=== PATIENT | female | born 1960 | race Hispanic/Latino ===

== ENCOUNTER 2020-08-23 00:23 | Emergency (ER) | payer OTHER, SELFPAY ==
[2020-08-23 02:24] LABS: Absolute Lymphocytes (CBC) 2.7 K/uL (0.7-4.9); Basophils % 0.8 % (0-1.3); Hematocrit 45.1 % (36.0-45.0); Lymphocytes % 29.3 % (15.3-44.8); MPV 9.7 fL (7.6-11.3); RBC Red Blood Cell Count 5.05 M/uL (3.86-4.86)
[2020-08-23 02:27] LABS: Protime INR 0.95
[2020-08-23 02:37] LABS: BUN Blood Urea Nitrogen 18 mg/dL (7-18); Bicarbonate 29 mmol/L (21-32); Glucose Level 87 mg/dL (74-106); Potassium 3.3 mmol/L (3.5-5.1); Sodium Level 141 mmol/L (136-145); Troponin (Emerg Dept Use Only) < 0.02 ng/mL (0.0-0.045)
[2020-08-23 03:17] LABS: Urine Blood 2+ (Negative); Urine Glucose Negative (Negative); Urine Protein Trace (Negative); Urine Specific Gravity <=1.005 (1.005-1.030)
--- NOTE | 2020-08-23 05:09 | ER ---
Nurse's Notes [facility] Name: Susan Rodriguez Age: 59 yrs Sex: Female : 1960 Arrival Date: 08/23/2020 Time: 00:27 Bed 8 Private MD: Diagnosis: Superficial injury of head;Dehydration;Urinary tract infection, site not specified Presentation: 08/23 01:33 Chief complaint: Patient states: When I fell and woke up, I was just scared at the jb4 time, that's why I was slurring my words. I feel fine now. Friend and/or Co-Worker states: She fell out of bed and hit her head on the bedside desk. At first she was slurring her words and I got worried and brought her in. she sounds normal now. Coronavirus screen: Client denies travel out of the [place] in the last 14 days. At this time, the client does not indicate any symptoms associated with coronavirus-19. Ebola Screen: No symptoms or risks identified at this time. Initial Sepsis Screen: Does the patient meet any 2 criteria? No. Patient's initial sepsis screen is negative. Does the patient have a suspected source of infection? No. Patient's initial sepsis screen is negative. Risk Assessment: Do you want to hurt yourself or someone else? Patient reports no desire to harm self or others. Onset of symptoms was August 23, 2020. Transition of care: patient was not received from another setting of care. 01:33 Method Of Arrival: Ambulatory jb4 01:33 Acuity: MARIO 3 jb4 Historical: - Allergies: 01:38 PENICILLINS; jb4 - Home Meds: 01:38 Vimpat oral 300 mg oral [Active]; jb4 - PMHx: 01:38 Randomly passes out; jb4 - PSHx: 01:38 None; jb4 - Immunization history:: Adult Immunizations up to date. - Social history:: Smoking status: Patient denies any tobacco usage or history of. Patient/guardian denies using alcohol, street drugs. - Family history:: not pertinent. - Hospitalizations: : No recent hospitalization is reported. Screenin:38 Abuse screen: Denies threats or abuse. Nutritional screening: No deficits noted. jb4 Tuberculosis screening: No symptoms or risk factors identified. Fall risk None identified. 01:38 Fall Risk None identified. jb4 Primary Survey: 01:38 NO uncontrolled hemorrhage observed. A: The patient is alert. Airway: patent, No jb4 supplemental oxygen in use on arrival. Oral cavity: clear, gag reflex present. Breathing/Chest: Respiratory pattern: regular, Respiratory effort: spontaneous, unlabored, Chest inspection: symmetrical rise and fall of the chest. Circulation: Skin color: pink, Skin temperature: warm, dry. Disability Alert. Exposure/Environment: All clothing and personal items were removed. Forensic evidence collection is not deemed to be indicated at this time. Items placed in patient belonging bag. 02:30 Reassessment Airway Airway Patent Oral cavity Clear +Gag reflex Breathing/Chest jb4 Respiratory pattern Regular Respiratory effort Spontaneous Unlabored Chest inspection Symmetrical Asymmetrical Circulation Color [place] Temperature Warm Dry Disability Alert. Secondary Survey: 01:38 HEENT: Head Other Laceration noted above the left eye Face No injury/deformity Eyes: No jb4 injury or deformity noted. Ears: clear Nose: clear Throat: No injury or deformity noted. with gag reflex present. Gastrointestinal: No deficits noted. : No deficits noted. Musculoskeletal: No deficits noted. Injury Description: Laceration sustained to left eye is clean, superficial, 2.6 to 7.5 cm long, not bleeding, was sustained 1-2 hours ago. Assessment: 01:38 General: Appears in no apparent distress. uncomfortable, Behavior is calm, cooperative, jb4 appropriate for age. Pain: Complains of pain in left arm Pain does not radiate. Pain currently is 6 out of 10 on a pain scale. Quality of pain is described as throbbing. Neuro: Level of Consciousness is awake, alert, obeys commands, Oriented to person, place, time, situation, Fur Storage Clerk are equal bilaterally weak bilaterally Moves all extremities. Full function Gait is steady, Speech is normal, Facial symmetry appears normal, Pupils are PERRLA, Intact. Cardiovascular: Patient's skin is warm and dry. Respiratory: Airway is patent Respiratory effort is even, unlabored, Respiratory pattern is regular, symmetrical. GI: No signs and/or symptoms were reported involving the gastrointestinal system. : No signs and/or symptoms were reported regarding the genitourinary system. EENT: No signs and/or symptoms were reported regarding the EENT system. Derm: Skin is intact, Skin is pink, warm \T\ dry. Musculoskeletal: Circulation, motion, and sensation intact. Range of motion: intact in all extremities. Injury Description: Laceration sustained to left eye is clean, superficial, 2.6 to 7.5 cm long, not bleeding, was sustained 1-2 hours ago. 02:30 Reassessment: Patient appears in no apparent distress at this time. Patient and/or jb4 family updated on plan of care and expected duration. Pain level reassessed. Patient is alert, oriented x 3, equal unlabored respirations, skin warm/dry/pink. 03:30 Reassessment: Patient appears in no apparent distress at this time. Patient and/or jb4 family updated on plan of care and expected duration. Pain level reassessed. Patient is alert, oriented x 3, equal unlabored respirations, skin warm/dry/pink. 04:30 Reassessment: Patient appears in no apparent distress at this time. Patient and/or jb4 family updated on plan of care and expected duration. Pain level reassessed. Patient is alert, oriented x 3, equal unlabored respirations, skin warm/dry/pink. 05:20 Reassessment: Patient appears in no apparent distress at this time. Patient and/or jb4 family updated on plan of care and expected duration. Pain level reassessed. Patient is alert, oriented x 3, equal unlabored respirations, skin warm/dry/pink. Vital Signs: 01:33 BP 143 / 73; Pulse 61; Resp 16; Temp 96.7(TE); Pulse Ox 97% on R/A; Weight 90.72 kg jb4 (R); Height 5 ft. 1 in. (154.94 cm) (R); Pain 6/10; 02:30 BP 151 / 76; Pulse 62; Resp 18; Pulse Ox 96% on R/A; jb4 04:30 BP 132 / 59; Pulse 67; Resp 18; Pulse Ox 97% on R/A; jb4 05:23 BP 145 / 80; Pulse 65; Resp 18; Temp 98; Pulse Ox 97% on R/A; mg2 01:33 Body Mass Index 37.79 (90.72 kg, 154.94 cm) jb4 [place] Coma Score: 01:39 Eye Response: spontaneous(4). Verbal Response: oriented(5). Motor Response: obeys jb4 commands(6). Total: 15. 02:30 Eye Response: spontaneous(4). Verbal Response: oriented(5). Motor Response: obeys jb4 commands(6). Total: 15. 04:30 Eye Response: spontaneous(4). Verbal Response: oriented(5). Motor Response: obeys jb4 commands(6). Total: 15. Trauma Score (Adult): 01:39 Eye Response: spontaneous(1); Verbal Response: oriented(1); Motor Response: obeys jb4 commands(2); Systolic BP: > 89 mm Hg(4); Respiratory Rate: 10 to 29 per min(4); [place] Score: 15; Trauma Score: 12 02:30 Eye Response: spontaneous(1); Verbal Response: oriented(1); Motor Response: obeys jb4 commands(2); Systolic BP: > 89 mm Hg(4); Respiratory Rate: 10 to 29 per min(4); [place] Score: 15; Trauma Score: 12 04:30 Eye Response: spontaneous(1); Verbal Response: oriented(1); Motor Response: obeys jb4 commands(2); Systolic BP: > 89 mm Hg(4); Respiratory Rate: 10 to 29 per min(4); Tricia Score: 15; Trauma Score: 12 05:24 Eye Response: spontaneous(1); Verbal Response: oriented(1); Motor Response: obeys mg2 commands(2); Systolic BP: > 89 mm Hg(4); Respiratory Rate: 10 to 29 per min(4); [place] Score: 15; Trauma Score: 12 ED Course: 00:27 Patient arrived in ED. bp1 01:32 Ernie Hughes, RN is Primary Nurse. jb4 01:37 Triage completed. jb4 01:38 Arm band placed on right wrist. jb4 01:38 Patient has correct armband on for positive identification. Bed in low position. Call jb4 light in reach. Side rails up X 1. 01:38 Patient maintains SpO2 saturation greater than 95% on room air. Thermoregulation: warm jb4 blanket given to patient. 01:40 Lucas Samayoa MD is Attending Physician. rn 02:29 CT Head C Spine In Process Unspecified. EDMS 05:23 No provider procedures requiring assistance completed. IV discontinued, intact, mg2 bleeding controlled, No redness/swelling at site. Pressure dressing applied. Administered Medications: 05:11 Drug: Cipro (ciprofloxacin) 500 mg Route: PO; mg2 05:11 Follow up: Response: No adverse reaction; Medication administered at discharge. mg2 Outcome: 05:07 Discharge ordered by . rn 05:24 Discharged to home ambulatory, with family. mg2 05:24 Condition: stable 05:24 Discharge instructions given to patient, Instructed on discharge instructions, follow up and referral plans. medication usage, Demonstrated understanding of instructions, follow-up care, medications, Prescriptions given X 1. 05:24 Patient left the ED. mg2 Signatures: Dispatcher [employer] EDMS Lucas Samayoa MD MD rn Bryson, James, RN RN jb4 Sp Cruz RN RN mg2 Ruth Hitchcock
--- NOTE | 2020-08-23 05:09 | EDPHYS ---
Physician Documentation [facility] Name: Susan Rodriguez Age: 59 yrs Sex: Female : 1960 Arrival Date: 08/23/2020 Time: 00:27 Bed 8 Private MD: ED Physician Lucas Samayoa HPI: 08/23 03:39 This 59 yrs old Female presents to ER via Ambulatory with complaints of Fall rn Injury. 03:39 Details of fall: The patient fell from a supine position, out of bed. Onset: The rn symptoms/episode began/occurred just prior to arrival. Associated injuries: The patient sustained injury to the head. Severity of symptoms: At their worst the symptoms were mild, in the emergency department the symptoms are unchanged. The patient has experienced similar episodes in the past. Reports fall from bed, hit head on bedside desk, no LOC, no blood thinners, reports felt dazed and initially had slurred speech, but only lasted a couple of minutes. Denies recent illness/fever/cough/sob/chest pain/abd pain/vomiting/diarrhea. Now feels much better, reports generalized malaise and fatigue.. Historical: - Allergies: 01:38 PENICILLINS; jb4 - Home Meds: 01:38 Vimpat oral 300 mg oral [Active]; jb4 - PMHx: 01:38 Randomly passes out; jb4 - PSHx: 01:38 None; jb4 - Immunization history:: Adult Immunizations up to date. - Social history:: Smoking status: Patient denies any tobacco usage or history of. Patient/guardian denies using alcohol, street drugs. - Family history:: not pertinent. - Hospitalizations: : No recent hospitalization is reported. ROS: 03:39 Constitutional: Negative for fever, chills, and weight loss, Eyes: Negative for injury, rn pain, redness, and discharge, Neck: Negative for injury, pain, and swelling, Cardiovascular: Negative for chest pain, palpitations, and edema, Respiratory: Negative for shortness of breath, cough, wheezing, and pleuritic chest pain, Abdomen/GI: Negative for abdominal pain, nausea, vomiting, diarrhea, and constipation, Back: Negative for injury and pain, MS/Extremity: Negative for injury and deformity, Skin: + contusion/abrasion left forehead Neuro: + mild headache Exam: 03:41 Constitutional: This is a well developed, well nourished patient who is awake, alert, rn and in no acute distress. Head/Face: + contusion with linear abrasion left forehead near left eye, no depression, no laceration Eyes: Pupils equal round and reactive to light, extra-ocular motions intact. Lids and lashes normal. Conjunctiva and sclera are non-icteric and not injected. Cornea within normal limits. Periorbital areas with no swelling, redness, or edema. Neck: No midline tenderness Chest/axilla: Normal chest wall appearance and motion. Nontender with no deformity. No lesions are appreciated. Cardiovascular: Regular rate and rhythm. No pulse deficits. Respiratory: No increased work of breathing, no retractions or nasal flaring. Abdomen/GI: soft, non-tender Back: No spinal tenderness. No costovertebral tenderness. Full range of motion. Skin: Warm, dry with normal turgor. Normal color with no rashes, no lesions, and no evidence of cellulitis. MS/ Extremity: Pulses equal, no cyanosis. Neurovascular intact. Full, normal range of motion. Equal circumference. Neuro: Awake and alert, GCS 15, oriented to person, place, time, and situation. Cranial nerves II-XII grossly intact. Motor strength 5/5 in all extremities. Sensory grossly intact. Cerebellar exam normal. Normal gait. Vital Signs: 01:33 BP 143 / 73; Pulse 61; Resp 16; Temp 96.7(TE); Pulse Ox 97% on R/A; Weight 90.72 kg jb4 (R); Height 5 ft. 1 in. (154.94 cm) (R); Pain 6/10; 02:30 BP 151 / 76; Pulse 62; Resp 18; Pulse Ox 96% on R/A; jb4 04:30 BP 132 / 59; Pulse 67; Resp 18; Pulse Ox 97% on R/A; jb4 05:23 BP 145 / 80; Pulse 65; Resp 18; Temp 98; Pulse Ox 97% on R/A; mg2 01:33 Body Mass Index 37.79 (90.72 kg, 154.94 cm) jb4 Tricia Coma Score: 01:39 Eye Response: spontaneous(4). Verbal Response: oriented(5). Motor Response: obeys jb4 commands(6). Total: 15. 02:30 Eye Response: spontaneous(4). Verbal Response: oriented(5). Motor Response: obeys jb4 commands(6). Total: 15. 04:30 Eye Response: spontaneous(4). Verbal Response: oriented(5). Motor Response: obeys jb4 commands(6). Total: 15. Trauma Score (Adult): 01:39 Eye Response: spontaneous(1); Verbal Response: oriented(1); Motor Response: obeys jb4 commands(2); Systolic BP: > 89 mm Hg(4); Respiratory Rate: 10 to 29 per min(4); [place] Score: 15; Trauma Score: 12 02:30 Eye Response: spontaneous(1); Verbal Response: oriented(1); Motor Response: obeys jb4 commands(2); Systolic BP: > 89 mm Hg(4); Respiratory Rate: 10 to 29 per min(4); Tricia Score: 15; Trauma Score: 12 04:30 Eye Response: spontaneous(1); Verbal Response: oriented(1); Motor Response: obeys jb4 commands(2); Systolic BP: > 89 mm Hg(4); Respiratory Rate: 10 to 29 per min(4); Tricia Score: 15; Trauma Score: 12 05:24 Eye Response: spontaneous(1); Verbal Response: oriented(1); Motor Response: obeys mg2 commands(2); Systolic BP: > 89 mm Hg(4); Respiratory Rate: 10 to 29 per min(4); Tricia Score: 15; Trauma Score: 12 MDM: 01:40 Patient medically screened. rn 05:05 Differential diagnosis: closed head injury, contusion, fracture, sprain, strain. Data rn reviewed: vital signs, nurses notes, lab test result(s), EKG, radiologic studies, CT scan, and as a result, I will discharge patient. Counseling: I had a detailed discussion with the patient and/or guardian regarding: the historical points, exam findings, and any diagnostic results supporting the discharge/admit diagnosis, lab results, radiology results, the need for outpatient follow up, to return to the emergency department if symptoms worsen or persist or if there are any questions or concerns that arise at home. Response to treatment: the patient's symptoms have markedly improved after treatment, the patient's condition has returned to base line, and as a result, I will discharge patient. Special discussion: Based on the patient's history, exam and DX evaluation, there is no indication for emergent intervention or inpatient TX. It is understood by the patient/guardian that if the SXs persist or worsen they need to return immediately for re-evaluation. I discussed with the patient/guardian in detail that at this point there is no indication for admission to the hospital. It is understood, however, that if the symptoms persist or worsen the patient needs to return immediately for re-evaluation. ED course: No acute findings on ct head/cspine. + mild dehydration and UTI. Will dc home with cipro given patient reports increased urination. Return precautions given and understood. Feels much better. . 08/23 01:46 Order name: Basic Metabolic Panel rn 08/23 01:46 Order name: CBC with Diff rn 08/23 01:46 Order name: Magnesium rn 08/23 01:46 Order name: Protime (+inr) rn 08/23 01:46 Order name: Ptt, Activated; Complete Time: 03:42 rn 08/23 01:46 Order name: Troponin (emerg Dept Use Only); Complete Time: 03:42 rn 08/23 01:45 Order name: CT Head C Spine rn 08/23 01:46 Order name: Basic Metabolic Panel; Complete Time: 03:42 EDUT 08/23 01:47 Order name: CBC with Automated Diff; Complete Time: 03:42 EDUT 08/23 01:47 Order name: Magnesium; Complete Time: 03:42 EDMS 08/23 01:47 Order name: Protime (+INR); Complete Time: 03:42 EDMS 08/23 03:16 Order name: Urine Dipstick-Ancillary; Complete Time: 03:42 EDMS 08/23 01:46 Order name: EKG; Complete Time: 01:47 rn 08/23 01:46 Order name: Cardiac monitoring; Complete Time: 02:18 rn 08/23 01:46 Order name: EKG - Nurse/Tech; Complete Time: 02:17 rn 08/23 01:46 Order name: IV Saline Lock; Complete Time: 02:17 rn 08/23 01:46 Order name: Labs collected and sent; Complete Time: 02:17 rn 08/23 01:46 Order name: NPO; Complete Time: 01:48 rn 08/23 01:46 Order name: O2 Per Protocol; Complete Time: 02:17 rn 08/23 01:46 Order name: O2 Sat Monitoring; Complete Time: 02:17 rn 08/23 01:46 Order name: Urine Dipstick-Ancillary (obtain specimen); Complete Time: 03:17 rn Administered Medications: 05:11 Drug: Cipro (ciprofloxacin) 500 mg Route: PO; mg2 05:11 Follow up: Response: No adverse reaction; Medication administered at discharge. mg2 Disposition: 08/23/20 05:07 Discharged to Home. Impression: Superficial injury of head, Dehydration, Urinary tract infection, site not specified. - Condition is Stable. - Discharge Instructions: Dehydration, Adult, Head Injury, Adult, Urinary Tract Infection, Adult. - Prescriptions for Cipro 500 mg Oral Tablet - take 1 tablet by ORAL route every 12 hours for 7 days; 14 tablet. - Medication Reconciliation Form, Thank You Letter, Antibiotic Education, Prescription Opioid Use form. - Follow up: Private Physician; When: As needed; Reason: Recheck today's complaints, Re-evaluation by your physician. - Problem is new. - Symptoms have improved. Signatures: Dispatcher [employer] EDUT Lucas Samayoa MD MD rn Bryson, James RN RN jb4 Sp Cruz RN RN mg2 Corrections: (The following items were deleted from the chart) 01:58 01:41 Head Brain Wo Cont+CT.RAD.BRZ ordered. [facility] EDMS 03:41 03:39 Constitutional: Negative for fever, chills, and weight loss, rn rn 05:24 05:07 08/23/2020 05:07 Discharged to Home. Impression: Superficial injury of head; mg2 Dehydration; Urinary tract infection, site not specified. Condition is Stable. Forms are Medication Reconciliation Form, Thank You Letter, Antibiotic Education, Prescription Opioid Use. Follow up: Private Physician; When: As needed; Reason: Recheck today's complaints, Re-evaluation by your physician. Problem is new. Symptoms have improved. rn
[2020-08-23] MEDS ORDERED: CIPROFLOXACIN HCL 500 MG TAB ONE (05:26)
[2020-08-23 05:36] VITALS: BP 145/80; TEMP 98; O2SAT 97
--- NOTE | 2020-08-23 10:32 | RAD REPORT ---
EXAM DESCRIPTION: CT - [id number] - 08/23/2020 6:21 am CLINICAL HISTORY: The patient is 59 years old and is Female; head injury;Pain TECHNIQUE: Axial computed tomography images of the head/brain and cervical spine without intravenous contrast. Sagittal and coronal reformatted images were created and reviewed. This CT exam was pe rformed using one or more of the following dose reduction techniques: automated exposure control, a djustment of the mA and/or kV according to patient size, and/or use of iterative reconstruction techn ique. COMPARISON: No relevant prior studies available. FINDINGS: Brain: Coarse calcification in the right basal ganglia. No hemorrhage. No significant white matter disease. Ventricles: Unremarkable. No ventriculomegaly. Skull: No acute fracture. Sinuses: The maxillary sinuses are opacified. Mastoid air cells: Unremarkable as visualized. No mastoid effusion. Vertebrae: 4 x 7 mm non-specific sclerotic focus in the posterior C4 vertebral body. No acute fracture. Normal alignment. Discs/spinal canal/neural foramina: No acute findings. No spinal canal stenosis. Soft tissues: Unremarkable. IMPRESSION: No acute intracranial abnormality. No acute cervical spine fracture or subluxation. Electronically signed by: Tyson Buckley MD 08/23/2020 2:46 AM CDT Due to temporary technical issues with the PACS/Fluency reporting system, reports are being signed by the in house radiologist without review as a courtesy to ensure prompt reporting. The interpreting r adiologist is fully responsible for the content of the report.
--- NOTE | 2020-08-23 11:17 | EKG ---
Test Date: 2020-08-23 Test Time: 01:59:09 Clinical Lab Assistant: WANDA MEASUREMENT RESULTS: Intervals: Rate: 65 UT: 156 QRSD: 86 QT: 426 QTc: 443 [place]: P: 60 UT: 156 QRS: 4 T: 47 INTERPRETIVE STATEMENTS: Normal sinus rhythm Normal ECG No previous ECG available for comparison Electronically Signed On 08-23-20 11:16:44 CDT by Tanmay Roberto
== END 2020-08-23 05:24 | disposition home or self-care (01) ==
LOC: ER 00:23
DX: E86.0 Dehydration (principal); N39.0 Urinary tract infection, site not specified; W06.XXXA Fall from bed, initial encounter; Z88.0 Allergy status to penicillin
CPT/HCPCS: 36415; 70450; 72125; 80048; 81003; 83735; 84484; 85025; 85610; 85730; 93005; 99284

== ENCOUNTER 2020-10-28 22:57 | Emergency (ER) | payer OTHER ==
[2020-10-28 23:34] LABS: Protime INR 0.93
[2020-10-28 23:34] LABS: Urine Blood 2+ (Negative); Urine Glucose Negative (Negative); Urine Protein 1+ (Negative); Urine Specific Gravity 1.015 (1.005-1.030)
[2020-10-28 23:41] LABS: Absolute Lymphocytes (CBC) 3.6 K/uL (0.7-4.9); Basophils % 0.7 % (0-1.3); Hematocrit 42.8 % (36.0-45.0); Lymphocytes % 40.3 % (15.3-44.8); MPV 9.4 fL (7.6-11.3); RBC Red Blood Cell Count 4.84 M/uL (3.86-4.86)
[2020-10-28 23:51] LABS: ALT/SGPT 32 U/L (12-78); AST/SGOT 20 U/L (15-37); Albumin 3.7 g/dL (3.4-5.0); Alkaline Phosphatase 162 U/L (45-117); BUN Blood Urea Nitrogen 15 mg/dL (7-18); Bicarbonate 27 mmol/L (21-32); Bilirubin Direct 0.1 mg/dL (0-0.2); Bilirubin Total 0.5 mg/dL (0.2-1.0); Glucose Level 102 mg/dL (74-106); Magnesium 1.8 mg/dL (1.8-2.4); NT PRO-BNP 57 pg/mL (<125); Potassium 3.8 mmol/L (3.5-5.1); Protein, Total 7.4 g/dL (6.4-8.2); Sodium Level 138 mmol/L (136-145); Troponin (Emerg Dept Use Only) < 0.02 ng/mL (0.0-0.045)
[2020-10-29] MEDS ORDERED: LIDOCAINE 1% 20 ML MDV ONE (00:38)
--- NOTE | 2020-10-29 05:42 | EDPHYS ---
Physician Documentation [facility] Name: Susan Rodriguez Age: 59 yrs Sex: Female : 1960 Arrival Date: 10/28/2020 Time: 23:06 Bed 6 Private MD: ED Physician Crispin Morales HPI: 10/29 00:13 This 59 yrs old Female presents to ER via EMS with complaints of Fall Injury. mh7 00:13 Details of fall: The patient fell from an upright position, while walking. Onset: The mh7 symptoms/episode began/occurred just prior to arrival, today. Associated injuries: The patient sustained injury to the head, contusion, laceration, of the forehead. 00:14 Associated injuries: The patient sustained right shoulder, painful injury. Severity of mh7 symptoms: At their worst the symptoms were moderate, earlier today, in the emergency department the symptoms have improved, moderately. 00:14 The patient has experienced similar episodes in the past, multiple times. mh7 Historical: - Allergies: 10/28 23:37 PENICILLINS; rr5 - Home Meds: 23:37 Vimpat 300 mg Oral [Active]; fluoxetine Oral [Active]; cetirizine oral [Active]; rr5 levothyroxine oral [Active]; Aspirin Oral [Active]; metoprolol [Active]; budesonide oral [Active]; - PMHx: 23:37 Randomly passes out; hyperlipidemia; Hypothyroidism; Anxiety; Hypertensive disorder; rr5 Seizure; - Immunization history:: Adult Immunizations unknown. - Social history:: Smoking status: unknown. - Immunization history: Last tetanus immunization: unknown. ROS: 10/29 00:14 Constitutional: Negative for fever, chills, and weight loss, Eyes: Negative for injury, mh7 pain, redness, and discharge, ENT: Negative for injury, pain, and discharge, Neck: Negative for injury, pain, and swelling, Cardiovascular: Negative for chest pain, palpitations, and edema, Respiratory: Negative for shortness of breath, cough, wheezing, and pleuritic chest pain, Abdomen/GI: Negative for abdominal pain, nausea, vomiting, diarrhea, and constipation, Back: Negative for injury and pain, : Negative for injury, bleeding, discharge, and swelling. Psych: Negative for depression, anxiety, suicide ideation, homicidal ideation, and hallucinations, Allergy/Immunology: Negative for hives, rash, and allergies, Endocrine: Negative for neck swelling, polydipsia, polyuria, polyphagia, and marked weight changes, Hematologic/Lymphatic: Negative for swollen nodes, abnormal bleeding, and unusual bruising. 00:14 Neuro: Positive for dizziness. mh7 Exam: 00:14 Constitutional: This is a well developed, well nourished patient who is awake, alert, mh7 and in no acute distress. 00:14 Eyes: Pupils equal round and reactive to light, extra-ocular motions intact. Lids and lashes normal. Conjunctiva and sclera are non-icteric and not injected. Cornea within normal limits. Periorbital areas with no swelling, redness, or edema. ENT: Nares patent. No nasal discharge, no septal abnormalities noted. Tympanic membranes are normal and external auditory canals are clear. Oropharynx with no redness, swelling, or masses, exudates, or evidence of obstruction, uvula midline. Mucous membranes moist. Neck: Trachea midline, no thyromegaly or masses palpated, and no cervical lymphadenopathy. Supple, full range of motion without nuchal rigidity, or vertebral point tenderness. No Meningismus. Chest/axilla: Normal chest wall appearance and motion. Nontender with no deformity. No lesions are appreciated. Cardiovascular: Regular rate and rhythm with a normal S1 and S2. No gallops, murmurs, or rubs. Normal PMI, no JVD. No pulse deficits. Respiratory: Lungs have equal breath sounds bilaterally, clear to auscultation and percussion. No rales, rhonchi or wheezes noted. No increased work of breathing, no retractions or nasal flaring. Abdomen/GI: Soft, non-tender, with normal bowel sounds. No distension or tympany. No guarding or rebound. No evidence of tenderness throughout. Back: No spinal tenderness. No costovertebral tenderness. Full range of motion. Neuro: Awake and alert, GCS 15, oriented to person, place, time, and situation. Cranial nerves II-XII grossly intact. Motor strength 5/5 in all extremities. Sensory grossly intact. Cerebellar exam normal. Normal gait. Psych: Awake, alert, with orientation to person, place and time. Behavior, mood, and affect are within normal limits. 00:14 Head/face: Noted is a laceration(s), that is superficial, that is jagged, 4 cm(s), of mh7 the forehead, of the 2 cm forhead, jagged, irregular. 00:14 Musculoskeletal/extremity: Extremities: noted in the right shoulder: tenderness, ROM: mh7 limited active range of motion due to pain, in the right shoulder, limited passive range of motion due to pain, in the right shoulder, Circulation is intact in all extremities. Sensation intact. Compartment Syndrome exam of affected extremity: is normal. no numbness, no tingling, no sensation deficit, no palor, no weak pulses, Joints: the right shoulder displays painful range of motion, tenderness. 00:14 Skin: injury, laceration(s), the wound is approximately 4 cm(s), with a depth of 0.5 cm(s), of the forehead, the second wound is approximately 2 cm(s), with a depth of 0.75 cm(s), of the forehead, that can be described as no foreign body, irregular, jagged, with mild bleeding. Vital Signs: 10/28 23:06 BP 186 / 88; Pulse 65; Resp 19; Temp 98; Pulse Ox 98% ; rr5 23:10 Weight 90.72 kg; rr5 07 00:30 BP 146 / 84; Pulse 69; Resp 15; Pulse Ox 97% ; rr5 01:26 BP 158 / 84; Pulse 62; Resp 18; Pulse Ox 98% on R/A; ak2 03:07 BP 149 / 78; Pulse 60; Resp 20; Pulse Ox 98% on R/A; ak2 03:40 BP 141 / 70; Pulse 62; Resp 19; Pulse Ox 99% ; rr5 04:30 BP 136 / 89; Pulse 60; Resp 17; Pulse Ox 99% ; rr5 05:30 BP 135 / 80; Pulse 60; Resp 17; Pulse Ox 99% ; rr5 Tricia Coma Score: 10/28 23:10 Eye Response: spontaneous(4). Verbal Response: oriented(5). Motor Response: obeys rr5 commands(6). Total: 15. 10/29 00:30 Eye Response: spontaneous(4). Verbal Response: oriented(5). Motor Response: obeys rr5 commands(6). Total: 15. 01:26 Eye Response: spontaneous(4). Verbal Response: oriented(5). Motor Response: obeys rr5 commands(6). Total: 15. 03:07 Eye Response: spontaneous(4). Verbal Response: oriented(5). Motor Response: obeys rr5 commands(6). Total: 15. 03:40 Eye Response: spontaneous(4). Verbal Response: oriented(5). Motor Response: obeys rr5 commands(6). Total: 15. 04:30 Eye Response: spontaneous(4). Verbal Response: oriented(5). Motor Response: obeys rr5 commands(6). Total: 15. 05:30 Eye Response: spontaneous(4). Verbal Response: oriented(5). Motor Response: obeys rr5 commands(6). Total: 15. Trauma Score (Adult): 10/28 23:10 Eye Response: spontaneous(1); Verbal Response: oriented(1); Motor Response: obeys rr5 commands(2); Systolic BP: > 89 mm Hg(4); Respiratory Rate: 10 to 29 per min(4); Tricia Score: 15; Trauma Score: 12 07 00:30 Eye Response: spontaneous(1); Verbal Response: oriented(1); Motor Response: obeys rr5 commands(2); Systolic BP: > 89 mm Hg(4); Respiratory Rate: 10 to 29 per min(4); Tricia Score: 15; Trauma Score: 12 01:26 Eye Response: spontaneous(1); Verbal Response: oriented(1); Motor Response: obeys rr5 commands(2); Systolic BP: > 89 mm Hg(4); Respiratory Rate: 10 to 29 per min(4); [place] Score: 15; Trauma Score: 12 03:07 Eye Response: spontaneous(1); Verbal Response: oriented(1); Motor Response: obeys rr5 commands(2); Systolic BP: > 89 mm Hg(4); Respiratory Rate: 10 to 29 per min(4); [place] Score: 15; Trauma Score: 12 03:40 Eye Response: spontaneous(1); Verbal Response: oriented(1); Motor Response: obeys rr5 commands(2); Systolic BP: > 89 mm Hg(4); Respiratory Rate: 10 to 29 per min(4); Tricia Score: 15; Trauma Score: 12 04:30 Eye Response: spontaneous(1); Verbal Response: oriented(1); Motor Response: obeys rr5 commands(2); Systolic BP: > 89 mm Hg(4); Respiratory Rate: 10 to 29 per min(4); Tricia Score: 15; Trauma Score: 12 05:30 Eye Response: spontaneous(1); Verbal Response: oriented(1); Motor Response: obeys rr5 commands(2); Systolic BP: > 89 mm Hg(4); Respiratory Rate: 10 to 29 per min(4); [place] Score: 15; Trauma Score: 12 Laceration: 05:00 Wound Repair of 4cm ( 1.6in ) subcutaneous laceration to forehead. Linear shaped.. mh7 Minimal bleeding noted.. jagged. Distal neuro/vascular/tendon intact. Anesthesia: Local anesthetic administered with 6 mls of 1% lidocaine, Local anesthetic administered with 3 mls of 1% lidocaine. Wound prep: Extensive cleansing with hibiclenz by nurse, Wound irrigation with saline by nurse, Wound explored extensively, Copious irrigation. 05:00 Wound Repair of 2cm ( 0.8in ) subcutaneous laceration to forehead. Irregularly shaped.. mh7 Distal neuro/vascular/tendon intact. Anesthesia: Local anesthetic administered with 3 mls of 1% lidocaine. Wound prep: Extensive cleansing with hibiclenz by nurse, Wound irrigation by nurse, Wound explored extensively, Copious irrigation. Skin closed with 8 5-0 Prolene using simple sutures and sterile technique. Subcutaneous tissue closed with 1 5-0 Vicryl. Skin closed with 5 5-0 Prolene using simple sutures and sterile technique. Dressed with Bacitracin, non-adherent dressing. Patient tolerated well. MDM: 00:14 Differential diagnosis: abrasion, closed head injury, contusion, fracture, laceration. mh7 05:00 Data reviewed: vital signs, nurses notes, EMS record, lab test result(s), cardiac mh7 enzymes, CBC, electrolytes, EKG, radiologic studies, CT scan, plain films. Data interpreted: Pulse oximetry: on room air is 99 %. Interpretation: normal. Counseling: I had a detailed discussion with the patient and/or guardian regarding: the historical points, exam findings, and any diagnostic results supporting the discharge/admit diagnosis, lab results, radiology results, to return to the emergency department if symptoms worsen or persist or if there are any questions or concerns that arise at home. Response to treatment: the patient's symptoms have markedly improved after treatment. Refusal of service: The patient/guardian displays adequate decision making capability and despite a detailed discussion of alternatives, benefits, risks, and consequences refuses: Admission to the hospital for further work-up and treatment. 05:41 Patient medically screened. [facility] 10/28 23:07 Order name: Basic Metabolic Panel; Complete Time: 00:22 [facility] 10/28 23:07 Order name: CBC with Diff; Complete Time: 00:22 [facility] 10/28 23:07 Order name: LFT's; Complete Time: 00:22 [facility] 10/28 23:07 Order name: Magnesium; Complete Time: 00:22 [facility] 10/28 23:07 Order name: NT PRO-BNP; Complete Time: 00:22 [facility] 10/28 23:07 Order name: PT-INR; Complete Time: 00:22 [facility] 10/28 23:07 Order name: Troponin (emerg Dept Use Only); Complete Time: 00:22 [facility] 10/28 23:07 Order name: XRAY Chest (1 view) [facility] 10/28 23:07 Order name: EKG; Complete Time: 23:07 [facility] 10/28 23:08 Order name: CT Head C Spine [facility] 10/28 23:33 Order name: Urine Dipstick-Ancillary; Complete Time: 00:22 [facility] 10/29 00:52 Order name: Shoulder Right 2 View [facility] 10/28 23:07 Order name: Cardiac monitoring; Complete Time: 23:37 [facility] 10/28 23:07 Order name: EKG - Nurse/Tech; Complete Time: 23:37 [facility] 10/28 23:07 Order name: IV Saline Lock; Complete Time: 23:37 [facility] 10/28 23:07 Order name: Labs collected and sent; Complete Time: 23:37 [facility] 10/28 23:07 Order name: O2 Per Protocol; Complete Time: 23:37 [facility] 10/28 23:07 Order name: O2 Sat Monitoring; Complete Time: 23:37 [facility] 10/28 23:07 Order name: Urine Dipstick-Ancillary (obtain specimen); Complete Time: 23:37 [facility] 10/29 00:15 Order name: Dressing - Wound; Complete Time: 05:21 rr5 10/29 00:15 Order name: Gloves, Sterile; Complete Time: 05:21 rr5 10/29 00:15 Order name: Prolene, Sutures; Complete Time: 05:21 rr5 10/29 00:15 Order name: Setup Suture Tray; Complete Time: 05:21 rr5 Administered Medications: 00:18 Drug: Lidocaine (1 %) 10 ml Volume: 20 ml; Route: Infiltration; ak2 05:33 Follow up: Response: No adverse reaction rr5 Disposition Summary: 10/29/20 05:41 Discharge Ordered Location: Home 7 Problem: an acute exacerbation 7 Symptoms: have improved mh7 Condition: Stable mh7 Diagnosis - Fall on same level, unspecified 7 - Seizure Disorder 7 Followup: [facility] - With: Private Physician - When: 1 - 2 days - Reason: Worsening of condition, Recheck today's complaints, Continuance of care, Re-evaluation by your physician Followup: [facility] - With: Rocco Pendleton MD - When: 1 - 2 days - Reason: Worsening of condition, Recheck today's complaints Discharge Instructions: - Discharge Summary Sheet 7 - Seizure, Adult, Obov-ia-[id number] mh7 - Facial Laceration, [id number] 7 - Sutured Wound Care, [id number]-[id number] 7 - Fall Prevention in the Home, Adult, [id number] 7 Forms: - Medication Reconciliation Form 7 - Thank You Letter 7 - Antibiotic Education 7 - Prescription Opioid Use 7 Signatures: Dispatcher [employer] Delano Norton RN RN rr5 Crispin Morales MD MD 7 Hermann Potter ak2 Corrections: (The following items were deleted from the chart) 00:52 09 23:08 Shoulder Left 2 View+RAD.RAD.BRZ ordered. LINDSAYID LINDSAYID 10/29 05:33 00:14 Neuro: Positive for dizziness, syncope, mh7 7
--- NOTE | 2020-10-29 05:42 | ER ---
Nurse's Notes [facility] Name: Susan Rodriguez Age: 59 yrs Sex: Female : 1960 Arrival Date: 10/28/2020 Time: 23:06 Bed 6 Private MD: Diagnosis: Fall on same level, unspecified;Seizure Disorder Presentation: 10/28 23:06 Chief complaint: EMS states: family stated she was in the couch stand up going to [facility] restroom suddenly felt dizzy then fell hit her head sustained punctured wound on her right eye and right forehead. she also complained of left shoulder pain and tongue bite noted.history of seizure. BS 115 mg/dl. Coronavirus screen: Client denies travel out of the [place] in the last 14 days. Ebola Screen: Patient negative for fever greater than or equal to 101.5 degrees Fahrenheit, and additional compatible Ebola Virus Disease symptoms Patient denies exposure to infectious person. Patient denies travel to an Ebola-affected area in the 21 days before illness onset. Initial Sepsis Screen: Does the patient meet any 2 criteria? No. Patient's initial sepsis screen is negative. Does the patient have a suspected source of infection? No. Patient's initial sepsis screen is negative. Risk Assessment: Do you want to hurt yourself or someone else? Patient reports no desire to harm self or others. Onset of symptoms was October 28, 2020 at 22:30. 23:06 Method Of Arrival: EMS: [facility] rr5 23:06 Acuity: MARIO 2 rr5 23:06 Care prior to arrival: None. Mechanism of Injury: Fall from standing position. rr5 23:06 Trauma event details: Injury occurred in the [facility], Injury occurred: at [facility] home. Injury occurred: October 28, 2020 Injury occurred at: 22:30. Trauma Activation: Alert Physician: ED Physician; Name: dr. morales; Notified At: 23:15; Arrived At: Physician: General Surgeon; Name: ; Notified At: 23:15; Arrived At: Physician: Radiology; Name: kenji davies; Notified At: 23:15; Arrived At: Physician: Respiratory; Name: ; Notified At: 23:15; Arrived At: Physician: Lab; Name: ; Notified At: 23:15; Arrived At: Historical: - Allergies: 23:37 PENICILLINS; rr5 - Home Meds: 23:37 Vimpat 300 mg Oral [Active]; fluoxetine Oral [Active]; cetirizine oral [Active]; rr5 levothyroxine oral [Active]; Aspirin Oral [Active]; metoprolol [Active]; budesonide oral [Active]; - PMHx: 23:37 Randomly passes out; hyperlipidemia; Hypothyroidism; Anxiety; Hypertensive disorder; rr5 Seizure; - Immunization history:: Adult Immunizations unknown. - Social history:: Smoking status: unknown. - Immunization history: Last tetanus immunization: unknown. Screenin:10 Abuse screen: Denies threats or abuse. Denies injuries from another. Nutritional rr5 screening: No deficits noted. Tuberculosis screening: No symptoms or risk factors identified. Fall risk At risk due to injury, age, prior history of falls, Intervention for positive screen: ED Physician notified, instructed to call for assist when getting up, side rails up. 23:10 Fall Risk Fall in past 12 months (25 points). IV access (20 points). Total Givens Fall rr5 Scale indicates Low Risk Score (25-44 pts). Fall prevention measures have been instituted. Side Rails Up X 2 Frequent Obs/Assesments occuring As available Patient and Family Educated on Fall Prevention Program and strategies. Primary Survey: 23:06 NO uncontrolled hemorrhage observed. A: The patient is alert. Airway: patent, Oral rr5 cavity: clear, gag reflex present, Trachea midline. Breathing/Chest: Respiratory pattern: regular, Respiratory effort: spontaneous, unlabored, Breath sounds: clear, bilaterally. Chest inspection: symmetrical rise and fall of the chest. Circulation: Pulses: palpable right radial artery and left radial artery. Disability Alert. Exposure/Environment: There is no evidence of uncontrolled external bleeding. Obvious injury(ies) are noted at this time: open wound right forehead and right eye. 10/29 00:15 Reassessment Airway Airway Patent Breathing/Chest Respiratory pattern Regular rr5 Respiratory effort Spontaneous Unlabored Breath sounds Clear Circulation Pulses Palpable Disability Alert. Secondary Survey: 10/28 23:20 HEENT: Head No injury/deformity Face Other open wound right forehead and right eye rr5 Eyes: No injury or deformity noted. Ears: clear bilaterally. Nose: clear to bilateral nares. Throat: is clear. Gastrointestinal: No deficits noted. Abdomen is soft. : No signs and/or symptoms were reported regarding the genitourinary system. Musculoskeletal: Reports pain in left shoulder. Assessment: 23:06 General: Appears in no apparent distress. comfortable, Behavior is calm, cooperative, rr5 appropriate for age. 23:06 Pain: Complains of pain in left shoulder. Neuro: Level of Consciousness is awake, rr5 alert, obeys commands, Oriented to person, place, time, Reports a syncopal episode. EENT: Oral mucosa is moist. Cardiovascular: Capillary refill < 3 seconds Patient's skin is warm and dry. Respiratory: Airway is patent Respiratory effort is even, unlabored, Respiratory pattern is regular, symmetrical. GI: Abdomen is round non-distended. : No signs and/or symptoms were reported regarding the genitourinary system. Derm: Wound noted forehead and right eye Wound is open wound. Musculoskeletal: Capillary refill < 3 seconds, Reports pain in left shoulder. 10/29 01:26 Reassessment: Patient and/or family updated on plan of care and expected duration. Pain ak2 level reassessed. 02:30 Reassessment: Patient appears in no apparent distress at this time. awaiting for ED rr5 provider. 03:07 Reassessment: Patient and/or family updated on plan of care and expected duration. Pain ak2 level reassessed. 04:00 Reassessment: Patient appears in no apparent distress at this time. No changes from rr5 previously documented assessment. no complaints made awaiting for ED provider. 05:31 Reassessment: Patient appears in no apparent distress at this time. Patient is alert, rr5 oriented x 3, equal unlabored respirations, skin warm/dry/pink. discharge instruction given and explained without complaints made. Vital Signs: 10/28 23:06 BP 186 / 88; Pulse 65; Resp 19; Temp 98; Pulse Ox 98% ; rr5 23:10 Weight 90.72 kg; rr5 10/29 00:30 BP 146 / 84; Pulse 69; Resp 15; Pulse Ox 97% ; rr5 01:26 BP 158 / 84; Pulse 62; Resp 18; Pulse Ox 98% on R/A; ak2 03:07 BP 149 / 78; Pulse 60; Resp 20; Pulse Ox 98% on R/A; ak2 03:40 BP 141 / 70; Pulse 62; Resp 19; Pulse Ox 99% ; rr5 04:30 BP 136 / 89; Pulse 60; Resp 17; Pulse Ox 99% ; rr5 05:30 BP 135 / 80; Pulse 60; Resp 17; Pulse Ox 99% ; rr5 Tricia Coma Score: 10/28 23:10 Eye Response: spontaneous(4). Verbal Response: oriented(5). Motor Response: obeys rr5 commands(6). Total: 15. 10/29 00:30 Eye Response: spontaneous(4). Verbal Response: oriented(5). Motor Response: obeys rr5 commands(6). Total: 15. 01:26 Eye Response: spontaneous(4). Verbal Response: oriented(5). Motor Response: obeys rr5 commands(6). Total: 15. 03:07 Eye Response: spontaneous(4). Verbal Response: oriented(5). Motor Response: obeys rr5 commands(6). Total: 15. 03:40 Eye Response: spontaneous(4). Verbal Response: oriented(5). Motor Response: obeys rr5 commands(6). Total: 15. 04:30 Eye Response: spontaneous(4). Verbal Response: oriented(5). Motor Response: obeys rr5 commands(6). Total: 15. 05:30 Eye Response: spontaneous(4). Verbal Response: oriented(5). Motor Response: obeys rr5 commands(6). Total: 15. Trauma Score (Adult): 10/28 23:10 Eye Response: spontaneous(1); Verbal Response: oriented(1); Motor Response: obeys rr5 commands(2); Systolic BP: > 89 mm Hg(4); Respiratory Rate: 10 to 29 per min(4); Tricia Score: 15; Trauma Score: 12 10/29 00:30 Eye Response: spontaneous(1); Verbal Response: oriented(1); Motor Response: obeys rr5 commands(2); Systolic BP: > 89 mm Hg(4); Respiratory Rate: 10 to 29 per min(4); [place] Score: 15; Trauma Score: 12 01:26 Eye Response: spontaneous(1); Verbal Response: oriented(1); Motor Response: obeys rr5 commands(2); Systolic BP: > 89 mm Hg(4); Respiratory Rate: 10 to 29 per min(4); [place] Score: 15; Trauma Score: 12 03:07 Eye Response: spontaneous(1); Verbal Response: oriented(1); Motor Response: obeys rr5 commands(2); Systolic BP: > 89 mm Hg(4); Respiratory Rate: 10 to 29 per min(4); [place] Score: 15; Trauma Score: 12 03:40 Eye Response: spontaneous(1); Verbal Response: oriented(1); Motor Response: obeys rr5 commands(2); Systolic BP: > 89 mm Hg(4); Respiratory Rate: 10 to 29 per min(4); Tricia Score: 15; Trauma Score: 12 04:30 Eye Response: spontaneous(1); Verbal Response: oriented(1); Motor Response: obeys rr5 commands(2); Systolic BP: > 89 mm Hg(4); Respiratory Rate: 10 to 29 per min(4); Tricia Score: 15; Trauma Score: 12 05:30 Eye Response: spontaneous(1); Verbal Response: oriented(1); Motor Response: obeys rr5 commands(2); Systolic BP: > 89 mm Hg(4); Respiratory Rate: 10 to 29 per min(4); Tricia Score: 15; Trauma Score: 12 ED Course: 10/28 23:06 Patient arrived in ED. rr5 23:06 Crispin Morales MD is Attending Physician. [facility] 23:09 Triage completed. rr5 23:11 Delano Burns RN is Primary Nurse. rr5 23:20 Thermoregulation: warm blanket given to patient. rr5 23:40 Arm band placed on left wrist. rr5 23:43 CT Head C Spine In Process Unspecified. EDMS 23:47 Patient has correct armband on for positive identification. Placed in gown. Bed in low rr5 position. Call light in reach. Side rails up X2. Pulse ox on. NIBP on. 23:47 Maintain EMS IV. Dressing intact. Site clean \T\ dry. Gauge \T\ site: G20 right AC. rr 5 10/29 00:00 Patient maintains SpO2 saturation greater than 95% on room air. rr5 00:27 XRAY Chest (1 view) In Process Unspecified. EDMS 01:54 Awaiting ED provider evaluation, Awaiting re-evaluation by ER provider. rr5 03:42 Awaiting re-evaluation by ER provider. rr5 05:30 Assist provider with laceration repair on forehead that was 2.5 cm. or less using rr5 sutures. Set up tray. Performed by Crispin Morales MD Dressed with 4X4s, Neosporin, Patient tolerated well. IV discontinued, intact, bleeding controlled, No redness/swelling at site. Pressure dressing applied. 05:40 Rocco Pendleton MD is Referral Physician. [facility] Administered Medications: 00:18 Drug: Lidocaine (1 %) 10 ml Volume: 20 ml; Route: Infiltration; ak2 05:33 Follow up: Response: No adverse reaction rr5 Intake: 03:30 PO: 0ml; Total: 0ml. rr5 Output: 03:30 Urine: 400ml (Straight Cath); Total: 400ml. rr5 Outcome: 05:41 Discharge ordered by . [facility] 05:50 Patient's length of stay in the Emergency Department was greater than 2 hours. re rr5 evaluationPatient's length of stay extended due to 05:51 Discharged to home via wheelchair, with family. rr5 05:51 Condition: stable 05:51 Discharge instructions given to patient, family, Instructed on discharge instructions, follow up and referral plans. Demonstrated understanding of instructions, follow-up care. 05:56 Patient left the ED. rr5 Signatures: Dispatcher [employer] EDDelano Huggins RN RN rr5 Crispin Morales MD MD [facility] Hermann Potter [facility] Corrections: (The following items were deleted from the chart) 00:52 00:27 In radiology for Shoulder Left 2 View+[email or web address]. EDMS EDMS
[2020-10-29 06:01] VITALS: TEMP 98
[2020-10-29 06:09] VITALS: O2SAT 99
[2020-10-29 06:12] VITALS: BP 135/80
--- NOTE | 2020-10-29 09:33 | RAD REPORT ---
EXAM DESCRIPTION: RAD - Chest Single View - 10/29/2020 12:27 am CLINICAL HISTORY: syncope, shortness of breath COMPARISON: None TECHNIQUE: AP portable chest image was obtained 10/29/2020 12:27 am . FINDINGS: No peripheral mass or consolidation identifiable. Interstitial pattern is prominent, suspe cted to be baseline. There is widening of the upper mediastinum due to rotation on the examination. H eart and vasculature are normal. No measurable pleural effusion and no pneumothorax. No acute bony ab normality seen. No acute aortic findings suspected. IMPRESSION: Prominent interstitial pattern favored to be baseline rather than edema or infiltrate. No focal airspace consolidation. Widened mediastinum probably due to rotation.
--- NOTE | 2020-10-29 09:33 | RAD REPORT ---
EXAM DESCRIPTION: Shoulder Right 2 View - 10/29/2020 12:51 am CLINICAL HISTORY: trauma, shoulder pain COMPARISON: No comparisons TECHNIQUE: Internal and external rotation views of the right shoulder were obtained. FINDINGS: There is no fracture or dislocation. AC joint is normal in appearance. No acute or suspic ious findings. IMPRESSION: Negative two-view right shoulder examination.
--- NOTE | 2020-10-29 22:21 | RAD REPORT ---
EXAM DESCRIPTION: CT - [id number] - 10/29/2020 6:40 am CLINICAL HISTORY: 59 years Female trauma COMPARISON: 06/23/2020. TECHNIQUE: Contiguous axial CT images obtained through the brain without IV contrast. This exam was performed according to our department optimization program which includes automated exp osure control, adjustment of the mA and/or kv according to patient size and/or use of iterative recon struction technique. FINDINGS: The ventricles and sulci appear unremarkable. No abnormal areas of decreased density are identified. No mass lesions. No acute hemorrhage. There is a similar calcification in the right basal ganglia region. There are similar changes from chronic bilateral maxillary sinusitis. There is a laceration in the right forehead. No depressed calvarial fractures. IMPRESSION: 1. No acute intracranial abnormality is identified. 2. There is a laceration in the right forehead. 3. There are similar changes from chronic bilateral maxillary sinusitis. EXAM DESCRIPTION: Head C Spine Mpr Wo Con CLINICAL HISTORY: 59 years Female trauma COMPARISON: 08/23/2020. TECHNIQUE: Contiguous axial images obtained through the cervical spine without IV contrast. Coronal and sagittal reformatted images obtained. This exam was performed according to our department optimization program which includes automated exp osure control, adjustment of the mA and/or kv according to patient size and/or use of iterative recon struction technique. FINDINGS: Straightening of the normal lordosis. Vertebral body alignment is unremarkable. No acute fractures. There is a similar nonspecific sclerotic lesion in the posterior C4 vertebral body on the right. There are changes from bilateral chronic maxillary sinusitis. There are surgical clips in the left lower neck. IMPRESSION: No acute cervical spinal fracture is identified. Electronically signed by: Gonzalez Veliz MD 10/29/2020 12:17 AM CDT Due to temporary technical issues with the PACS/Fluency reporting system, reports are being signed by the in house radiologists without review as a courtesy to insure prompt reporting. The interpreting radiologist is fully responsible for the content of the report.
--- NOTE | 2020-10-31 16:12 | EKG ---
Test Date: 2020-10-28 Test Time: 23:09:01 Conduit Cleaner: MEASUREMENT RESULTS: Intervals: Rate: 66 AR: 148 QRSD: 96 QT: 444 QTc: 465 [place]: P: 61 AR: 148 QRS: 26 T: 57 INTERPRETIVE STATEMENTS: Normal sinus rhythm Normal ECG Compared to ECG 08/23/2020 01:59:09 No significant changes Electronically Signed On 10-31-20 16:05:28 CDT by Tanmay Roberto
== END 2020-10-29 05:56 | disposition home or self-care (01) ==
LOC: ER 22:57
PROC: 0JQ10ZZ Repair Face Subcutaneous Tissue and Fascia, Open Approach (ICD-10-PCS; principal; 2020-10-29)
DX: S01.81XA Laceration without foreign body of other part of head, initial encounter (principal); W18.30XA Fall on same level, unspecified, initial encounter; Y93.01 Activity, walking, marching and hiking; G40.909 Epilepsy, unspecified, not intractable, without status epilepticus; E03.9 Hypothyroidism, unspecified; I10 Essential (primary) hypertension; Z88.0 Allergy status to penicillin
CPT/HCPCS: 36415; 70450; 71045; 72125; 80048; 80076; 81003; 83735; 83880; 84484; 85025; 85610; 93005; 99284; G0390

== ENCOUNTER 2024-07-10 17:43 | Emergency (ER) | payer OTHER ==
--- OUTSIDE RECORDS SUMMARY | 2024-07-10 17:46 | XMS REPORT | Continuity of Care Document ---
Author Name Unknown Address [address] [facility] [place] [address] [facility] [place] Address [address] [facility] [place] [address] Care Team Providers Care Hand Candy Cutter Name Role Phone Austen Miller NP Primary Care Physician [phone] No, PCP Attending Clinician Unavailable Doctor Unassigned, [facility] Attending Clinician U BRADEN Gurrola Attending Clinician Unavailable BRADEN HUERTAS Attending Clinician Unavailable MIKE CLEMENTS Attending Clinician Unavailab marilyn SOUZAPMike Attending Clinician EDER CHARLES Attending Clinician Unavailable Eder Cahrles MD Attending Clinician [phone] ISMAEL CAROLINA Attending Clinician Unavailable Ismael Carolina MD Attending Clinician [phone] Alex, [facility] Attending Clinician Unavailabl e RADIOLOGY Attending Clinician Unavailable Radiology Attending Clinician Unavailable Doctor Unassigned, [facility] Attending Clinician U MIKE Ann Admitting Clinician Unavailab EDER Iyer Admitting Clinician Unavailable ISMAEL CAROLINA Admitting Clinician Unavailable Ismael Carolina MD Admitting Clinician [phone] AUSTEN MILLER Admitting Clinician Unavailab marilyn Payers Payer Name Policy Type Policy Number Effective Date Expirati on Date Source Problems Condition Name Condition Details Condition Category Status Onset Date Resolution Date Last Treatment Date Treating Clinician Comments Source Alzheimer' s disease Alzheimer' s disease, unspecifie d Problem [facility] Mild major depression , single episode Major depressive disorder, single episode, mild Problem [facility] Anxiety disorder Anxiety disorder, unspecifie d Problem [facility] Electroenc ephalogram abnormal Abnormal electroenc ephalogram [EEG] Problem [facility] Amnesia Other amnesia Problem [facility] Visual Disturbanc e Other visual disturbanc es Problem [facility] 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, unspecifie d Problem [facility] Multiple sclerosis Multiple sclerosis Problem [facility] [id number] Status post placement of VNS (vagus nerve stimulatio n) device Problem [facility] Occlusion and stenosis of multiple and bilateral cerebral arteries Occlusion and stenosis of bilateral carotid arteries Problem [facility] Chronic pain syndrome Chronic pain syndrome Problem [facility] Presence of brain neurostimu lator device Presence of brain neurostimu lator device Problem [facility] Insomnia Insomnia due to medical condition Problem [facility] [id number] Essential hypertensi on Problem [facility] Anxiety Anxiety Problem [facility] Paranoia Paranoia Problem [facility] Hyperlipid aemia HLD (hyperlipi demia) Problem [facility] Dizziness Dizziness Problem [facility] Epilepsy Epilepsy, unspecifie d, not intractabl e, without status epilepticu s Problem [facility] Allergies, Adverse Reactions, Alerts Allergy Name Allergy Type Status Severity Reaction(s) Onset Date Inactive Date Treating Clinician Comments Source PENICILL IN DRUG INGREDI Active ITCHING 07-17 00:00: 00 [facility] Penicill in Propensi ty to adverse reaction s Active Swelling 07-17 00:00: 00 [facility] NO KNOWN ALLERGIE S Drug Class Active [facility] Substanc e with penicill in structur e and antibact erial mechanis m of action (substan ce) Substanc e with penicill in structur e and antibact erial mechanis m of action (substan ce) Active Unknown [facility] Social History Social Habit Start Date Stop Date Quantity Comments Source Sexual orientation U [facility] History of Tobacco Use [facility] Sex Assigned At [facility] Tobacco use and exposure 2023-07-31 00:00:00 2023-07-31 00:00:00 Smokeless tobacco non-user [facility] History of Social function 2023-07-31 00:00:00 2023-07-31 00:00:00 [facility] Smoking Status Start Date Stop Date Source Tobacco smoking consumption unknown [facility] Never Smoker [facility] Medications Ordered Medication Name Filled Medication Name Start Date Stop Date Current Medication? Ordering Clinician Indication Dosage Frequency Signature (SIG) Comments Components Source clonazePAM 1 MG clonazePAM 1 MG 9-12 00:00: 00 No 1{table t} TID clonazePAM 1 MG Primidone 50 MG Primidone 50 MG -07 00:00: 00 No 2{table t} BID Primidone 50 MG Atorvastati n Calcium 40 MG Atorvastati n Calcium 40 MG 18 00:00: 00 No 1{table t} QD Atorvastat in Calcium 40 MG gadobenate dimeglumine (MULTIHANCE -15 mL) injection 0.2 mL/kg 08-27 16:15: 00 08-27 16:09 :00 No [id number] .2mL/kg 0.2 mL/kg, Intravenou s, ONCE, 1 dose, On Sat08/28/23 at 1115, Routine [facility] FLUoxetine 20 mg capsule 07-31 14:00: 00 07-31 18:22 :28 No 20mg Take 1 capsule by mouth daily. [facility] montelukast 10 mg tablet 07-31 14:00: 00 07-31 18:22 :28 No 10mg Take 1 tablet by mouth daily. [facility] clonazePAM 1 mg tablet 07-31 14:00: 00 07-31 18:22 :28 No 1mg Take 1 tablet by mouth daily. [facility] metoprolol succinate XL 25 mg 24 hr tablet 07-31 14:00: 00 07-31 18:22 :28 No 25mg Take 1 tablet by mouth daily. [facility] primidone 50 mg tablet 07-31 14:00: 00 07-31 18:22 :28 No 50mg Take 1 tablet by mouth daily. [facility] FLUoxetine 20 mg capsule 07-31 11:22: 25 Yes 20mg Take 1 capsule by mouth daily. [facility] montelukast 10 mg tablet 07-31 11:22: 25 Yes 10mg Take 1 tablet by mouth daily. [facility] eslicarbaze pine (APTIOM) 800 mg Tab 07-31 11:22: 25 Yes Take by mouth daily. [facility] clonazePAM 1 mg tablet 07-31 11:22: 25 Yes 1mg Take 1 tablet by mouth daily. [facility] Levothyroxi ne 112 mcg capsule 07-31 11:22: 25 Yes Take by mouth daily. [facility] atorvastati n 40 mg tablet 07-31 11:22: 25 Yes 40mg Take 1 tablet by mouth at bedtime. [facility] metoprolol succinate XL 25 mg 24 hr tablet 07-31 11:22: 25 Yes 25mg Take 1 tablet by mouth daily. [facility] primidone 50 mg tablet 07-31 11:22: 25 Yes 50mg Take 1 tablet by mouth daily. [facility] levothyroxi ne (SYNTHROID) tablet 112 mcg 07-31 11:00: 00 07-31 18:22 :28 No 112ug 112 mcg, Oral, QAM-0600, First dose on Sat08/01/23 at 0600, Until Discontinu ed [facility] water for injection, sterile injection 10 mL 07-31 08:00: 00 07-31 07:39 :00 No 10mL 10 mL, Intravenou s, ONCE, 1 dose, On Sat08/01/23 at 0300, Routine [facility] donepeziL (ARICEPT) tablet 10 mg 07-31 02:00: 00 07-31 18:22 :28 No 10mg 10 mg, Oral, QHS, First dose on Sat07/31/23 at 2100, Until Discontinu ed, Routine [facility] atorvastati n 40 mg tablet 07-31 02:00: 00 07-31 18:22 :28 No 40mg Take 1 tablet by mouth at bedtime. [facility] sennosides (SENOKOT) tablet 8.6 mg 07-31 01:00: 00 07-31 18:22 :27 No 8.6mg 8.6 mg, Oral, BID, First dose on Sat07/31/23 at 1999, Until Discontinu ed, Routine [facility] famotidine (PEPCID AC) tablet 20 mg 07-31 01:00: 00 07-31 18:22 :27 No 20mg 20 mg, Oral, BID, First dose on Sat07/31/23 at 1999, Until Discontinu ed, Routine [facility] docusate (COLACE) capsule 100 mg 07-31 01:00: 00 07-31 18:22 :27 No 100mg 100 mg, Oral, BID, First dose on Sat07/31/23 at 1999, Until Discontinu ed, Routine [facility] sodium chloride 1,000 mg tablet 07-31 00:00: 00 08-31 04:59 :00 No [id number] 1g Take 1 tablet by mouth 3 (three) times daily with meals for 30 days. [facility] docusate 100 mg capsule 07-31 00:00: 00 08-15 04:59 :00 No [id number] 100mg Take 1 capsule by mouth daily for 14 days. Take with a full glass of water. [facility] methocarbam oL 500 mg tablet 07-31 00:00: 00 08-15 04:59 :00 No [id number] 500mg Take 1 tablet by mouth 4 (four) times daily for 14 days. Indication s: a uncontroll ed muscle contractio n with pain [facility] HYDROcodone -acetaminop hen 5-325 mg tablet 07-31 00:00: 00 08-08 04:59 :00 No [id number] 1{tbl} Take 1 tablet by mouth every 4 (four) hours as needed for Pain (scale 4-6) or Pain (scale 7-10) for up to 7 days. Indication s: acute pain [facility] ceFAZolin (ANCEF) injection 1,000 mg 07-30 23:00: 00 07-31 13:29 :00 No 1000mg 1,000 mg, Intravenou s, Q8H ABX, 3 doses, First dose on Sat07/31/23 at 1800, Last dose on Sat08/01/23 at 1000
Re ason for Anti-Infec tive: Surgical Prophylaxi s
Surgi lily Prophylaxi s: Neurosurge ry
Dura tion of therapy: within 24 hours of surgery [facility] NaCl 0.9% (NS) IV infusion 1,000 mL 07-30 18:15: 00 07-31 18:22 :27 No 1000mL at 75 mL/hr, IV Infusion, CONTINUOUS , Starting on Sat07/31/23 at 1315, Until Sat08/01/23 at 1322, Routine [facility] morpHINE (2 mg/mL) injection 2 mg 07-30 18:03: 26 07-31 18:22 :27 No 2mg 2 mg, Slow IV Push, Q3HPRN, Starting on Sat07/31/23 at 1303, Until Carol 08/01/23 at 1322, Routine, Pain (scale 7-10) [facility] oxyCODONE immediate release tablet 5 mg 07-30 18:03: 13 07-31 18:22 :27 No 5mg 5 mg, Oral, Q4HPRN, Starting on Sat07/31/23 at 1303, Until Carol 08/01/23 at 1322, Routine, Pain (scale 4-6)
Fa culty member approving Restricted medication : BRADEN HUERTAS [facility] acetaminoph en (TYLENOL) tablet 325 mg 07-30 18:03: 11 07-31 18:22 :27 No 325mg 325 mg, Oral, Q6HPRN, Starting on Sat07/31/23 at 1303, Until Carol 08/01/23 at 1322, Routine, Pain (scale 1-3) [facility] bisacodyL (DULCOLAX) suppository 10 mg 07-30 18:01: 07-31 18:22 :28 No 10mg 10 mg, Rectal, QHSPRN, Starting on Sat07/31/23 at 1301, Until Carol 08/01/23 at 1322, Routine, Constipati on [facility] NaCl 0.9% (NS) injection 5 mL 07-30 18:: 07-31 18:22 :28 No 5mL 5 mL, Slow IV Push, PRN - SEE INSTRUCTIO NS, Starting on Sat07/31/23 at 1301, Until Carol 08/01/23 at 1322, 10 mL [facility] lactated ringers IV infusion 1,000 mL 07-30 18:00: 00 07-31 10:40 :22 No 1000mL at 75 mL/hr, 1,000 mL, IV Infusion, CONTINUOUS , Starting on Sat07/31/23 at 1300, Until Carol 08/01/23 at 0540, Routine, PACU [facility] HYDROcodone -acetaminop hen (NORCO 5) 5-325 mg tablet 1 tablet 07-30 18:00: 00 07-30 18:16 :00 No 1{tbl} 1 tablet, Oral, ONCE, 1 dose, On Sat07/31/23 at 1300, Routine, PACU [facility] FENTanyl PF (SUBLIMAZE (PF)) injection 25 mcg 07-30 17:59: 12 07-30 19:27 :00 No 25ug 25 mcg, Slow IV Push, Q5MIN PRN, 4 doses, Starting on Sat07/31/23 at 1259, Until Discontinu ed, Routine, Pain (scale 4-6), PACU [facility] vancomycin (VANCOCIN) 1 g in sodium chloride 0.9 % irrigation 07-30 17:08: 00 07-30 18:11 :58 No PRN, Starting on Sat07/31/23 at 1208, Until Sat07/31/23 at 1311, 1,000 mL, Intra-op [facility] lidocaine-e pinephrine (XYLOCAINE WITH EPINEPHRINE ) 0.5 %-1:200,000 injection 07-30 14:30: 00 07-30 18:11 :58 No PRN, Starting on Sat07/31/23 at 0930, Until Sat07/31/23 at 1311, Routine, Intra-op [facility] Aptiom 800 MG Aptiom 800 MG 3- 00:00: 00 No 1{table t} QD Aptiom 800 MG Valproic Acid 250 MG/5ML Valproic Acid 250 MG/5ML 3- 00:00: 00 No 15{ml} BID Valproic Acid 250 MG/5ML buPROPion HCl 75 MG buPROPion HCl 75 MG 3-05 00:00: 00 No 1{table t} BID buPROPion HCl 75 MG Nuedexta 20-10 MG Nuedexta 20-10 MG 2022-0 8- 00:00: 00 No 1{capsu le} BID Nuedexta 20-10 MG clonazePAM 2 MG clonazePAM 2 MG 2022-0 8- 00:00: 00 No 1{table t} QD clonazePAM 2 MG Trintellix 10 MG Trintellix 10 MG 2021-04 0-13 00:00: 00 No 1{table t} QD Trintellix 10 MG Diovan 80 MG Diovan 80 MG No Diovan 80 MG FLUoxetine HCl 20 MG FLUoxetine HCl 20 MG No 3{capsu le} FLUoxetine HCl 20 MG Memantine HCl 10 MG Memantine HCl 10 MG No BID Memantine HCl 10 MG Meclizine HCl 25 MG Meclizine HCl 25 MG No 1{table t_as_ne eded} Meclizine HCl 25 MG Montelukast Sodium 10 MG Montelukast Sodium 10 MG No 1{table t} QD Montelukas t Sodium 10 MG Vimpat 200 MG Vimpat 200 MG No 1{table t} BID Vimpat 200 MG Cetirizine HCl 10 MG Cetirizine HCl 10 MG No 1{table t} QD Cetirizine HCl 10 MG Levothyroxi ne Sodium 125 MCG Levothyroxi ne Sodium 125 MCG No QD Levothyrox ine Sodium 125 MCG Liothyronin e Sodium 5 MCG Liothyronin e Sodium 5 MCG No 1{table t_on_an _empty_ stomach } QD Liothyroni ne Sodium 5 MCG Valtoco 5 MG Dose 5 MG/0.1ML Valtoco 5 MG Dose 5 MG/0.1ML No Valtoco 5 MG Dose 5 MG/0.1ML clonazePAM 2 MG clonazePAM 2 MG No 1{table t_on_ e_tongu e_and_a llow_to _dissol ve} QD clonazePAM 2 MG Nayzilam 5 MG/0.1ML Nayzilam 5 MG/0.1ML No 1{spray _as_nee ded} Nayzilam 5 MG/0.1ML lamoTRIgine 150 MG lamoTRIgine 150 MG No BID lamoTRIgin e 150 MG Aduhelm 170 MG/1.7ML Aduhelm 170 MG/1.7ML No 1{table t} QD Aduhelm 170 MG/1.7ML Donepezil HCl 10 MG Donepezil HCl 10 MG No QD Donepezil HCl 10 MG Zonisamide 100 MG Zonisamide 100 MG No Zonisamide 100 MG lamoTRIgine 100 MG lamoTRIgine 100 MG No 1{table t} lamoTRIgin e 100 MG Vital Signs Vital Name Observation Time Observation Value Comments S ource height 2023-11-27 09:30:00 63 [in_i] [facility] weight-kg 2023-11-27 09:30:00 73.03 kg [facility] bmi 2023-11-27 09:30:00 28.52 kg/m2 [facility] heart rate 2023-11-27 09:30:00 58 /min [facility] blood pressure systolic 2023-11-27 09:30:00 198 mm[Hg] [facility] blood [facility] diastolic 2023-11-27 09:30:00 101 mm[Hg] [facility] Body height 2023-08-20 16:03:00 [facility].4 [facility] 2023-08-20 16:03:00 72.576 kg Univ [facility] BMI 2023-08-20 16:03:00 31.25 kg/m2 Univ [facility] Systolic blood pressure 2023-08-01 12:56:00 108 mm[Hg] [facility] Diastolic blood pressure 2023-08-01 12:56:00 60 mm[Hg] [facility] Heart rate 2023-08-01 12:56:00 55 /min Un[facility] Body temperature 2023-08-01 12:56:[address] [facility] Respiratory rate 2023-08-01 12:56:00 18 /min [facility] Oxygen saturation in Arterial blood by Pulse oximetry 2023-08-01 12:56:00 96 /min [facility] Body height 2023-07-31 11:40:00 157.5 cm Univ [facility] Body weight 2023-07-31 11:40:00 71.7 kg [facility] BMI 2023-07-31 11:40:00 28.91 kg/m2 [facility] Systolic blood pressure 2023-07-31 12:15:00 148 mm[Hg] [facility] Diastolic blood pressure 2023-07-31 12:15:00 60 mm[Hg] [facility] Heart rate 2023-07-31 11:40:00 61 /min [facility] Body temperature 2023-07-31 11:40:[address] [facility] Respiratory rate 2023-07-31 11:40:00 18 /min [facility] Body height 2023-07-31 11:40:00 157.5 cm [facility] Body weight 2023-07-31 11:40:00 71.7 kg [facility] BMI 2023-07-31 11:40:00 28.91 kg/m2 [facility] Oxygen saturation in Arterial blood by Pulse oximetry 2023-07-31 11:40:00 97 /min [facility] Systolic blood pressure 2023-07-18 20:22:00 136 mm[Hg] [facility] Diastolic blood pressure 2023-07-18 20:22:00 82 mm[Hg] [facility] Heart rate 2023-07-18 20:22:00 62 /min [facility] Body height 2023-07-18 20:22:00 154.9 cm [facility] Body weight 2023-07-18 20:22:00 70.761 kg [facility] BMI 2023-07-18 20:22:00 29.48 kg/m2 [facility] Procedures Procedure Date / Time Performed Performing Clinician Source MR BRAIN W WO CONTRAST 2023-08-28 16:11:[address] [facility] XR CHEST 2 VW 2023-08-14 16:06:09 Eder Charles [facility] BASIC METABOLIC PANEL (NA, K, CL, CO2, GLUCOSE, BUN, CREATININE, CA) 2023-08-01 10:21:[address] [facility] CBC WITH DIFF 2023-08-01 10:21:[address] [facility] BASIC METABOLIC PANEL (NA, K, CL, CO2, GLUCOSE, BUN, CREATININE, CA) 2023-08-01 10:21:[address] [facility] CBC WITH DIFF 2023-08-01 10:21:[address] [facility] VAGAL NERVE STIMULATOR INSERTION 2023-07-31 13:46:00 Aleksandar [facility] VAGAL NERVE STIMULATOR INSERTION 2023-07-31 13:46:00 Aleksandar [facility] VAGAL NERVE STIMULATOR INSERTION 2023-07-31 13:46:00 Aleksandar [facility] VAGAL NERVE STIMULATOR INSERTION 2023-07-31 13:46:00 Aleksandar [facility] VAGAL NERVE STIMULATOR INSERTION 2023-07-31 13:46:00 Aleksandar [facility] VAGAL NERVE STIMULATOR INSERTION 2023-07-31 13:46:[address] [facility] ABORH CONFIRMATION (LAB ONLY) 2023-07-31 12:58:[address] [facility] ABORH CONFIRMATION (LAB ONLY) 2023-07-31 12:58:[address] [facility] HB ABO GROUPING 2023-07-31 12:10:00 [facility] 2023-07-31 12:10:00 Braden Huertas [facility] XR CHEST 1 VW 2023-07-25 15:20:00 Mike Clements [facility] REFERRAL- REQUEST/RESPONSE 2023-07-16 15:46:28 Doctor Unassigned, [facility] XR KUB 2021-07-12 20:31:41 [facility] 2 [facility]W RIGHT 2021-07-12 20:31:[address] [facility] ASSIGNMENT OF BENEFITS 2021-07-12 20:16:30 Docto r Unassigned, [facility] Encounters Start Date/Time End Date/Time Encounter Type Admission Type Attending Clinicians Care Facility Care Department Encounter ID Source 2024-03-31 08:35:01 Outpatient No, PCP [facility] [id number] [facility] 2023-11-27 09:06:01 Outpatient No, PCP [facility]O [facility] [id number] [facility] 2024-04-06 00:00:00 2024-05-09 18:20:12 Patient Secure Msg Doctor Unassigned, [facility] Doctor Unassigned, [facility] [id number] 350.1.13.10 4.2.7.2.686 [id number] [facility] 2024-03-30 00:00:00 2024-03-30 00:00:00 ([facility]) [facility] [id number] [facility] 2023-11-27 00:00:00 2023-11-27 00:00:00 Office Visit- Est Pt.- Level 4 [facility] [id number] [facility] 2023-10-29 11:00:00 2023-10-29 11:00:00 Outpatient R BRADEN HUERTAS BRADEN HUERTAS [facility] [id number] [facility] 2023-10-17 13:00:00 2023-10-17 13:00:00 Outpatient R BRADEN HUERTAS PATRICK [facility] [id number] [facility] 2023-08-28 09:04:28 2023-08-28 23:59:00 Outpatient R MIKE CLEMENTS [facility] [id number] [facility] 2023-08-28 09:04:28 2023-08-28 23:59:00 Hospital Encounter Mike Clements [facility] 1.840.114 350.1.13.10 4.2.7.2.686 [id number] [facility] 2023-08-20 11:15:00 2023-08-20 12:45:50 Outpatient R MO HUERTASRICK ALEKSANDARBRADEN CAMPOS [facility] [id number] [facility] 2023-08-20 11:15:00 2023-08-20 12:45:50 Office Visit Aleksandar Braden [facility] 1..840.114 350.1.13.10 4.2.7.2.686 [id number] [facility] 2023-08-14 10:37:36 2023-08-14 23:59:00 Outpatient EDER HOOKS [facility] [id number] [facility] 2023-08-14 10:30:00 2023-08-14 23:59:00 Hospital Encounter Eder Charles [facility] 1.840.114 350.1.13.10 4.2.7.2.686 [id number] [facility] 2023-07-31 06:25:00 2023-08-01 11:22:00 Outpatient R WAN ISMAEL [facility] [id number] [facility] 2023-07-31 06:25:00 2023-08-01 11:22:00 Hospital Encounter Aleksandar Braden [facility] 1.2.840.114 350.1.13.10 4.2.7.2.686 [id number] [facility] 2023-07-31 08:38:00 2023-07-31 10:21:00 [facility] 1..840.114 350.1.13.10 4.2.7.2.686 [id number] [facility] 2023-07-25 09:52:32 2023-07-25 23:59:00 Outpatient Richard CLEMENTS MIKE [facility] [id number] [facility] 2023-07-25 09:52:32 2023-07-25 23:59:00 [facility] 1..840.114 350.1.13.10 4.2.7.2.686 [id number] [facility] 2023-07-25 11:00:00 2023-07-25 11:15:00 Agency Service Representative Visit Draw, [facility] Tyree Mike [facility] 1.2.840.114 350.1.13.10 4.2.7.2.686 [id number] [facility] 2023-07-18 14:45:00 2023-07-18 16:14:50 Outpatient R BRADEN HUERTAS BRADEN [facility] [id number] [facility] 2023-07-18 14:45:00 2023-07-18 16:14:50 Office Visit Braden Huertas [facility] 1.2.840.114 350.1.13.10 4.2.7.2.686 [id number] [facility] 2021-07-12 15:18:36 2021-07-12 23:59:00 Outpatient R RADIOLOGY [facility] [id number] [facility] 2021-07-12 15:15:00 2021-07-12 23:59:00 Hospital Encounter Radiology [facility] 1.840.114 350.1.13.10 4.2.7.2.686 [id number] [facility] 2021-07-12 00:00:00 2021-07-12 00:00:00 Orders Only Doctor Unassigned, [facility] 1.2.840.114 350.1.13.10 4.2.7.2.686 [id number] [facility] Results Test Description Test Time Test Comments Results Result Comments Source MR BRAIN W WO CONTRAST 8 16:58:27 MR BRAIN W WO CONTRAST COMPARISON: None. HISTORY: epilepsy 3 Nadya only; epilepsy protocol; DTI with 64 directions TECHNIQUE: Multisequence multiplanar MR images of the brain obtainedwithout and with IV contrast.Quantitative volumetry of the brain was performed using NeuroQuant([employer], [place], [place]) software package. The NeuroQuantanalysis was based on a sagittal 3D volumetric MPRAGE pulse sequence. FINDINGS: The ventricles and cerebral sulci are normal in caliber and configuration.No midline shift, hydrocephalus or pathological extra-axial fluidcollection is present. The basal cisterns are unremarkable. There is T2/FLAIR hyperintensity in the left hippocampus. No restricted diffusion is present to suggest acute infarct. ScatteredT2/FLAIR hyperintense foci in the periventricular deep white matter arenonspecific and likely sequelae of chronic microvascular ischemic changes.A small focus of T2 hyperintensity with peripheral T2 hypointense and [id number] signal with associated susceptibility signal loss in the rightputamen compatible with remote hemorrhage. No abnormal contrastenhancement. Mucosal thickening of the left maxillary sinus. The Hippocampal volume report demonstrates: Left Hippocampal volume: 3.4 cc, normative percentile of 81.Right Hippocampal volume: 3.65 cc, normative percentile of 91.Asymmetry Index: 7.24, normative percentile of 25. The asymmetry index isdefined as the percentage difference between left and right volumes dividedby their mean. The values listed above were within 2 SD of the [address] [facility] XR CHEST 2 VW 2 4 16:18:58 HISTORY: Evaluate position of VNS implant. TECHNIQUE: PA and lateral views of the chest are obtained. Comparison madeto 07/25/2023 study. FINDINGS: Cluster of metallic wires are seen in the left lower anteriorneck, unchanged. Metallic device is implanted in the left anterior chest wall, projectedover the interspace between second and third anterior left ribs. Cardiomediastinal contour appears normal. Minimal chronic fibrosissuspected in the right lower lung, otherwise lungs are clear. CONCLUSIONS: Metallic VNS implant noted in anterior left upper chest,projected between the left anterior second and third ribs. [facility] ([facility] Only)2023-07-31 13:10:00* Test Item Value Reference Range Interpretation Comme nts ABO & RH (test code = 20) B Positive [facility]2023-07-31 13:10:00* Test Item Value Reference Range Interpretation Comme nts ABO & RH (test code = 20) B [facility] [id number] 12:20:00* Test Item Value Reference Range Interpretation Comme nts ABO & RH (test code = 20) B POSITIVE IAT (test code = 1185) Negative [facility] [id number] 12:20:00* Test Item Value Reference Range Interpretation Comme nts ABO & RH (test code = 20) B POSITIVE IAT (test code = 1185) Negative [facility] [id number] 12:20:00* Test Item Value Reference Range Interpretation Comme nts ABO & RH (test code = 20) B POSITIVE IAT (test code = 1185) Negative [facility] [id number] 18:25:24EXAM: XR CHEST 1 VW COMPARISON: None available HISTORY: pre-op eval FINDINGS: Lungs: Large lung volumes, prominent bronchovascular markings andperibronchial cuffing, which should be correlated with smoking history orbronchial hyperreactivity-type history. No focal opacities or pleuralabnormality. Mildly lobulated right diaphragmatic contour. Heart/Mediastinum: The cardiomediastinal silhouette is u nremarkable. Bones and soft tissues: No osseous lesions visualized. Tiny metallicdensity projected over the left lower neck, nonspecific. Inspectionrecommended.[facility]/[id number] 15:46:28Ordered by an unspecified provider.[facility]/[id number] 15:46:28Ordered by an unspecified provider.[facility] Consult Notes Date/Time Note Provider Source 2023-08-01 10:16:00 Associated Order(s): CONSULT ADULT PHYSICAL THERAPY Patient agreeable to working with physical therapy. Patient met semi reclined in bed. Recommend nursing staff utilize supervision due to seizures to safely assist patient with mobility out of the bed or chair. PHYSICAL THERAPY EVALUATION Consult received, chart reviewed and evaluation complete this date. Patient is referred to PT for evaluation and treatment. 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 Discharge Recommendations: Therapy Needs and Potential: Patient without any skilled PT needs at this time. Challenges to Home Transition: increased risk of falls Equipment recommendations: no device Current Functional Status and/or Treatment: Pt seen in conjunction with Brian Wagoner OT due to discharge status. Daughter at bedside throughout session. AM-PAC 6 Clicks (Raw Score 0=Dependent, 24=Independent; Low function Raw Score 0= Dependent, 32=Independent): Raw Score - Basic Mobility : 23 T-Scale Score - Basic Mobility : 50.88 Bed Mobility: Supine<>sit: Independent Dizziness No Transfers: sit-stand: Independent Static/dynamic standing balance: Good Dizziness No Ambulation: Assisted patient with ambulation as follows: ~100 feet using no device. and Independent. Patient presenting with Step-through and intermittent slow/fast pace, slight sway occasionally, decreased BUE arm swing gait pattern. Following ambulation and return to the room, pt had absent seizure seated at the EOB. Pt able to move herself into bed while having seizure. Bed rail placed for safety. Daughter at bedside and nurse notified. Dizziness No Therapeutic exercise: Educated on paced gait and activity limitations. Functional Outcome Measures: (Values within the past 12 hours) Tinetti Gait Score- # / 12 Initiation of gait: No hesitancy Step length: On both sides, swing foot passes stance foot Foot clearance: Both feet completely clear floor Step Symmetry: Step lengths equal Step continuity: Steps appear continuous Path: Straight without AD Trunk: No sway, no flexion, no use of arms, no use of AD Walking: Heels apart Tinetti Gait Score: 11 Tinetti Gait Score Interpretation: >= 7 - Low risk for falls After session, patient semi reclined in bed. Call button provided. PLAN OF CARE: PT signs off. See below for complete details. 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 No pertinent past medical history. PSH: Past Surgical History: Procedure Laterality Date VAGAL NERVE STIMULATOR INSERTION (SHX) Left 07/31/2023 Surgeon: Braden Huertas MD; Location: [facility] OR LOCATION Prior Living Situation: in a house and with their daughter, 2 steps with no railing to enter DME: [employer] Prior level of Mobility: house hold ambulation Suspected ischemic or hemorraghic stroke:No Subjective: Pt has 24/7 care from daughter. Pt is independent around the home. She has had frequent falls due to dizziness related to her medication. Pt enjoys sweeping and mopping. Patient/Family Goals: Go home Patient/Family verbalizes understanding of condition: Yes PAIN: denies pain before and after session COMMUNICATION Primary Language: German , pt able to understand/speak some Mohawk, however daughter available to translate German when needed. Able to Verbalize needs: Yes Vision:glasses Hearing:good; no issues reported ORIENTATION/COGNITION: Oriented to: person, place, date/time, and situation Awake: Yes Alert: Yes Dizzy: No Follows Commands: Yes 1-Step Yes Multi-Step Yes Inconsistent: Yes, slow to respond at times. NEUROLOGICAL Light Touch: within functional limits bilateral LE BALANCE: Sitting: Static: Good Dynamic: Good Standing: Static: Good Dynamic: Fair+ RANGE OF MOTION: within functional limits bilateral LE STRENGTH: WFL BLE ENDURANCE: Good, Room air SKIN INTEGRITY: incision left neck PROBLEM LIST: Decline in gait and Decreased balance ASSESSMENT: Patient is a 62 year old female seen secondary to the above listed diagnosis. No further inpatient PT needs identified at this time. Rehabilitation Potential: NA as no further therapy needs Goals: The following goals are to maximize independence and safety with functional mobility to eventually return to prior living situation and prior functional status. Defer as no PT needs. Treatment Plan: Evaluation only and Discharge from PT PATIENT EDUCATION: Patient provided with preferred teaching of verbal information on role of PT, plan of care. Barriers to learning include cognitive limitations and language. Verbal instruction teaching provided. Individual is able to read and needs reinforcement of teaching. Total Time Tx Codes in Minutes: 3 min Total Treatment Time in Minutes: 12 min Jacey Acevedo PT, DPT T [facility] - Health History and Physical Notes Date/Time Note Provider Source 2023-07-31 08:29:13 Neurosurgery Pre Operative History and Physical Note Date of Service: 07/31/2023 Tristan Stafford is a 62 year old female who was interviewed and examined today in the DSU/holding area/operating room before induction of anesthesia. There have been no significant interval changes in the history or physical exam. See full H&P, copied below for completeness, for more details. Risks, benefits and alternatives to the procedure were reviewed with the patient again today, and pt voiced understanding of the condition present as well as the planned procedure(s) without questions and wishes to proceed. Informed consent was obtained. Diagnosis: drug-resistant epilepsy Planned procedure: VNS revision Tre Navarro MD Neurosurgery For inquiries please page [phone] Neurosurgery Clinic Note 07/18/2023 Chief Complaint: VNS depleted battery Referring Physician: Dr. Marti HPI: Tristan Stafford is a pleasant 62 year old woman, with history of refractory epilepsy s/p VNS placement approximately 10-15 years ago, no known revisions, referred to neurosurgery clinic for depleted VNS and discussion regarding surgical options for her epilepsy. She is followed by Dr. Hauser and currently taking 3 AEDs and continues to have multiple seizures daily. She is accompanied by her daughter today who reports seizures began about 30 years ago. Unclear history. She has been diagnosed with alzheimers due to cognitive decline. During her last office visit with Neurology, her VNS battery was unable to be detected. Also found to have seizure activity during in clinic EEG. Referral also notes possible brain lesion- no imaging or reports available for review. Past Medical History: History reviewed. No pertinent past medical history. Current Rx No current outpatient medications on file. No current facility-administered medications for this visit. Family History: History reviewed. No pertinent family history. Social History: Social History Socioeconomic History Marital status: Surgical History: History reviewed. No pertinent surgical history. Review of Systems Constitutional: negative Eyes: negative Ears: negative Nose/Sinuses: negative Mouth/Throat: negative Cardiovascular: negative Respiratory: negative Gastrointestinal: negative Genitourinary: negative Musculoskeletal: Negative Integumentary: negative Neuro: Seizures Psych: negative Physical Exam: Vitals BP 136/82 | Pulse 62 | Ht 5' 1" (1.549 m) | Wt 156 lb (70.8 kg) | BMI 29.48 kg/m? Appearance: patient alert, oriented x4, and in no acute distress ENT: PERRL bilaterally, EOMI bilaterally Musculoskeletal: Moves all extremities equally, normal tone in BUE & BLE, bulk is normal, no atrophy Neuro: Language/Speech: Fluency: intact; no dysarthria Comprehension: intact Cranial Nerves: EOMI, gaze is conjugate and without any deviation, no nystagmus Face symmetric, no facial droop, tongue midline Hearing intact Gait stable without drift Imaging: None available for review today. Assessment/Plan: Tristan Stafford is a 62 year old female with history of refractory epilepsy s/p VNS placement approximately 10-15 years ago, referred to neurosurgery clinic for VNS revision and discussion regarding surgical options for her epilepsy. Patient having cognitive decline and mutliple seizures daily. Recommend surgery for VNS revision on urgent basis. Discussion regarding risks, potential complications and outcome were outlined. All of the patient's questions were answered and the patient has agreed to proceed with surgery. Pre op work up completed. MRI brain ordered STAT LOUISA Shepard Neurosurgery Faculty This encounter was performed in conjunction with RG: Mike Clements. I saw and evaluated the patient and performed the substantive portion of this visit based upon MDM. MDM: Medical Decision Making for which I performed in its entirety. I have reviewed and verified the documentation for this encounter and assume responsibility for the services by signing the medical record. Braden Huertas MD [employer] [facility] Department of Neurosurgery Associated attestation - Braden Huertas MD - 07/31/2023 8:59 AM CDT Neurosurgery Faculty Addendum: I personally evaluated and examined the patient and agree with the note by Tre Navarro with no changes. VNS has been removed during prior surgery. Plan to implant new VNS system today (lead and generator). Discussed risks benefits and alternatives with patient. She agrees to proceed. Braden Huertas MD [facility] Neurosurgery [facility] Notes Date/Time Note Provider Source 2023-08-01 11:00:00 Discharge education provided with discharge instruction explained and copy provided to the patient and her daughter. PIV to right hand removed, catheter tip intact, gauze applied and no bleeding noted. Patient left with her daughter along with her personal belongings. [facility] 2023-08-01 10:25:00 Occupational therapy reported that patient had an episode of absence seizure during the therapy. Patient is awake and alert upon assessment during this time. Respiration even and unlabored. [facility] 2023-08-01 07:49:29 Problem: Discharge Planning Goal: Adequate for discharge Outcome: Progressing as expected Goal: Effective communication Outcome: Progressing as expected Problem: Pain Goal: Control of pain at or below patient's documented comfort goal Outcome: Progressing as expected Goal: Reduction in pain sensation Outcome: Progressing as expected Problem: Falls, Risk of Goal: Absence of falls Outcome: Progressing as expected [facility] 2023-07-31 23:13:10 Problem: Discharge Planning Goal: Adequate for discharge Outcome: Progressing as expected Problem: Pain Goal: Control of pain at or below patient's documented comfort goal Outcome: Progressing as expected Problem: Falls, Risk of Goal: Absence of falls Outcome: Progressing as expected [facility] Deidre Barry RN [facility] 2023-07-31 17:50:00 Received patient from PACU. AOx4. Left neck incision and left upper chest incision with derma frausto, no bleeding noted. Daughter at bedside. Call light in reach.Respiration even and unlabored without SOB. [facility] 2023-07-31 09:55:00 Neurosurgery Service Operative Report Date: 07/31/2023 Pre-op Diagnosis: drug resistant epilepsy Post-op Diagnosis: drug resistant epilepsy Procedure: 1) revision (removal and re-implantation) of vagus nerve stimulator electrodes [id number] 2) replacement left vagus nerve stimulator generator [id number] 3) generator interrogation and reprogramming [id number] 4) use of operating room microscope for microsurgical technique [id number] Wound Class: clean Attending Surgeon: Braden Huertas MD Chief Resident Surgeon: Andressa Mai MD PhD Findings: prior leads removed from vagus nerve and new lead placed around nerve without complications Anesthesia: General endotracheal anesthesia Fluids: per anesthesia Urine Output: per anesthesia Estimated Blood Loss: 5cc Drains: none Specimens: none Blood Products:none Implants: [employer] Sentiva 1000 and VNS lead Complications: none apparent Condition: The patient did tolerate the procedure well. Patient was extubated and was transferred to the PACU in stable condition. Indication for Surgery: 62 year old woman, with history of refractory epilepsy s/p VNS placement approximately 10-15 years ago, no known revisions, referred to neurosurgery clinic for depleted VNS and discussion regarding surgical options for her epilepsy. She is followed by Dr. Hauser and currently taking 3 AEDs and continues to have multiple seizures daily. She is accompanied by her daughter today who reports seizures began about 30 years ago. Unclear history. She has been diagnosed with alzheimers due to cognitive decline. During her last office visit with Neurology, her VNS battery was unable to be detected. Also found to have seizure activity during in clinic EEG. Chest XR prior to surgery revealed that no VNS generator was present, but leads remained intact in neck. Patient was counseled and wished to proceed with surgery for VNS replacement. Procedure in Detail: Informed consent was obtained and benefits, risks, and alternatives were explained the the patient and her daughter. The patient and daughter agreed to proceed with surgery. She was accompanied to the operating room by a neurosurgeon. Timeout was performed verifying the correct patient, correct surgical site, and correct procedure. The patient was intubated and IV's were placed by anesthesia. The patient was positioned suppine on the operating room table with a small bump under her shoulders. The head was turned slightly to the right. The prior incisions were marked on the left neck. A new left infraclavicular chest incision was drawn, as the prior incision was axillary. Chlorhexedine and alcohol was used to clean the skin. Local anesthetic was then injected. The area was prepped and draped in the usual sterile fashion. A 10-blade was used to make incision under the clavicle. Bovie electrocautery was used to cut through the subcutaneous fascia and a pocket was made under 2cm fat. A second incision was then made over the neck. This was carried down through the platysma with bovie electrocautery. The platysma was then undermined going up and down. The medial edge of the sternocleidomastoid muscle was then visible. The operating room microscope was then brought into the field. The medial sternocleidomastoid was then followed down to the carotid sheath. The sheath was entered and after dissection the prior electrodes were visible wrapped around the vagus nerve. Nerve distal to the electrodes was dissected. We then use microdissection to carefully dissect the electrodes and remove them off the vagus nerve. Thus the prior VNS lead was completely removed from the patient. A vessel loop was placed around the nerve. We then tunneled a new VNS electrode from the neck incision down to the pocket, and proceeded with placed the 2 electrodes and securing lead around the nerve without touching the electrodes themselves. Once the electrodes were placed around the nerve, the wire was tacked down in 2 places with stress relief loops. The proximal end of the lead was then inserted into a new Sentiva 1000 generator and secured in place with a screw. The generator was then placed in the infraclavicular pocket. The device was interrogated and impedances were in proper range. The device also properly detected heart rate. The wound was then washed with antibiotic irrigation and meticulous hemostasis was achieved. We then proceeded with closure. The deep tissue of the pocket was closed with 3-0 vicryl sutures, and the deep dermis was also closed with 3-0 vicryl. The skin was closed with a running 4-0 monocryl stitch. An occlusive dressing was then placed. At the completion of the case all counts were correct. There were no complications. The generator was then programmed on an autoramping stimulation protocol. The patient was awoken from anesthesia and extubated in the operating room. She was accompanied to the PACU in stable condition. Braden Huertas MD [employer] [facility] Department of Neurosurgery 07/31/2023 T [facility] Chem[facility] 2023-07-25 11:00:00 Images from the original note were not included. Venipuncture collection performed by clean technique on the left anticubitus. Total of 1 attempts were made. Slight pressure and a bandage/dressing were applied to the site(s). The patient experienced no complications. The following specimens were processed according to instructions and sent to [facility] laboratories per lab order on 07/25/2023: LT BLUE 1 SST 1 RED LAV 1 PPT DK GREEN (LiHep) DK GREEN (SodH) BUCKLEY DK BLUE (K2) DK BLUE (S) ACD Blood Culture NIPT/NTD T [facility] Chemayi
--- NOTE | 2024-07-10 18:31 | RAD REPORT ---
EXAMINATION: ONE VIEW CHEST XR CLINICAL INDICATION: FEVER TECHNIQUE: Frontal chest projection is submitted. Examination is limited by patient positioning and t echnique. COMPARISON: 10/29/2020 FINDINGS: Trace right pleural fluid. Minimal linear opacities in the lung bases. The heart is upper limit of no rmal in size. No displaced fractures identified. Left-sided medical record specialist. Wire extends cephalad.
--- NOTE | 2024-07-10 19:41 | ER ---
Nurse's Notes [facility] Name: Susan Rodriguez Age: 63 yrs Sex: Female : 1960 Arrival Date: 07/10/2024 Time: 17:43 Bed IW1 Private MD: Diagnosis: Sprain of ribs Presentation: 07/10 18:57 Chief complaint: Patient states: slipped and fell in shower two days ago , having right iw sided ribpain. Coronavirus screen: At this time, the client does not indicate any symptoms associated with coronavirus-19. Initial Sepsis Screen: Does the patient meet any 2 criteria? No. Patient's initial sepsis screen is negative. Does the patient have a suspected source of infection? No. Patient's initial sepsis screen is negative. Risk Assessment: Do you want to hurt yourself or someone else? Patient reports no desire to harm self or others. 18:57 Method Of Arrival: Ambulatory iw 18:58 Ebola Screen: No symptoms or risks identified at this time. iw 18:58 Acuity: MARIO 4 iw Historical: - Allergies: 19:15 PENICILLINS; iw - PMHx: 19:15 Hyperlipidemia; Randomly passes out; Hypertensive disorder; Anxiety; Hypothyroidism; iw Seizure; - Immunization history:: Adult Immunizations up to date. - Infectious Disease History:: Denies. - Social history:: Smoking status: Patient denies any tobacco usage or history of. Screenin:17 [facility] ED Fall Risk Assessment (Adult) History of falling in the last 3 months, iw including since admission Yes- single mechanical fall (1 pt) Confusion or Disorientation No (0 pts) Intoxicated or Sedated No (0 pts) Impaired Gait Yes (1 pt) Mobility Assist Device Used Yes (1 pt) Altered Elimination No (0 pt) Score/Fall Risk Level 3 or more points = High Risk Oriented to surroundings. Abuse screen: Denies threats or abuse. Denies injuries from another. Nutritional screening: No deficits noted. Tuberculosis screening: No symptoms or risk factors identified. Assessment: 18:29 Reassessment: pt in xray. iw 19:00 General: Appears in no apparent distress. Behavior is calm, cooperative. Pain: iw Complains of pain in right lateral posterior chest and right lateral anterior chest. Neuro: Level of Consciousness is awake, alert, obeys commands, Oriented to person, place, time, situation, Moves all extremities. Vital Signs: 18:57 BP 179 / 75; Pulse 80; Resp 18; Temp 97.6; Pulse Ox 97% ; Pain 6/10; iw 18:57 Pain Scale: Adult iw ED Course: 17:46 Patient arrived in ED. im 17:47 Nayely uQinn MD is Attending Physician. gb1 18:28 CXR XRAY In Process Unspecified. EDMS 18:58 Triage completed. iw 20:18 Johanna Chavez, RN is Primary Nurse. iw Administered Medications: No medications were administered Outcome: 19:40 Discharge ordered by . gb1 20:17 Discharged to home via wheelchair, with family, iw 20:17 Condition: good 20:17 Discharge instructions given to patient, family, Instructed on discharge instructions, follow up and referral plans. Demonstrated understanding of instructions, follow-up care, 20:18 Patient left the ED. iw Signatures: Dispatcher [employer] EDNC Johanna Chavez RN RN Skylar Crow Nayely Quinn MD MD gb1
--- NOTE | 2024-07-10 19:41 | EDPHYS ---
Physician Documentation [facility] Name: Susan Rodriguez Age: 63 yrs Sex: Female : 1960 Arrival Date: 07/10/2024 Time: 17:43 Bed IW1 Private MD: ED Physician Nayely Quinn HPI: 07/10 19:03 This 63 yrs old Female presents to ER via Ambulatory with complaints of Fall gb1 at home. 19:03 On Saturday patient fell and hit her right side of her rib cage on the edge of the gb1 bathtub. She is not being seen here today for flu symptoms she is here for a fall. No pain with breathing and actually she has been improving but she is not back to her baseline normal. She has a small bruise on the bottom of her rib cage on the right side. She did not hit her head and her not is not on any blood thinning medications. No head strike no LOC with the fall.. Historical: - Allergies: 19:15 PENICILLINS; iw - PMHx: 19:15 Hyperlipidemia; Randomly passes out; Hypertensive disorder; Anxiety; Hypothyroidism; iw Seizure; - Immunization history:: Adult Immunizations up to date. - Infectious Disease History:: Denies. - Social history:: Smoking status: Patient denies any tobacco usage or history of. Exam: 19:03 Constitutional: This is a well developed, well nourished patient who is awake, alert, gb1 and in no acute distress. Head/Face: Normocephalic, atraumatic. Eyes: Pupils equal round and reactive to light, extra-ocular motions intact. Lids and lashes normal. Conjunctiva and sclera are non-icteric and not injected. Cornea within normal limits. Periorbital areas with no swelling, redness, or edema. ENT: Nares patent. No nasal discharge, no septal abnormalities noted. Tympanic membranes are normal and external auditory canals are clear. Oropharynx with no redness, swelling, or masses, exudates, or evidence of obstruction, uvula midline. Mucous membranes moist. Neck: Trachea midline, no thyromegaly or masses palpated, and no cervical lymphadenopathy. Supple, full range of motion without nuchal rigidity, or vertebral point tenderness. No Meningismus. Chest/axilla: Positive tenderness to the anterior lateral seventh and eighth ribs. She has a minor contusion on that same area. no deformity. No lesions are appreciated. Cardiovascular: Regular rate and rhythm with a normal S1 and S2. No gallops, murmurs, or rubs. Normal PMI, no JVD. No pulse deficits. Respiratory: Lungs have equal breath sounds bilaterally, clear to auscultation and percussion. No rales, rhonchi or wheezes noted. No increased work of breathing, no retractions or nasal flaring. Abdomen/GI: Soft, non-tender, with normal bowel sounds. No distension or tympany. No guarding or rebound. No evidence of tenderness throughout. Back: No spinal tenderness. No costovertebral tenderness. Full range of motion. Skin: Warm, dry with normal turgor. Normal color with no rashes, no lesions, and no evidence of cellulitis. MS/ Extremity: Pulses equal, no cyanosis. Neurovascular intact. Full, normal range of motion. Vital Signs: 18:57 BP 179 / 75; Pulse 80; Resp 18; Temp 97.6; Pulse Ox 97% ; Pain 6/10; iw 18:57 Pain Scale: Adult iw MDM: 18:28 Medical Screening Exam initiated gb1 19:03 Data reviewed: radiologic studies. ED course: 63-year-old female status post fall onto gb1 the edge of the bathtub concern for rib fracture versus contusion. Patient is not splinting to breathe she otherwise is well-appearing and doubt a focal pneumonia I did give her return precautions and recommend NSAIDs for pain for which she is compliant to prior to discharge home today from the hospital.. 19:41 ED course: I reviewed the patient's chest x-ray and that shows no signs of acute rib gb1 fracture or dislocation. I will recommend be discharged home with instructions for NSAID use for pain. Patient did not present for any flu symptoms and at this time I will not await the flu test results.. 07/10 17:48 Order name: CXR XRAY; Complete Time: 18:40 gb1 Administered Medications: No medications were administered Disposition Summary: 07/10/24 19:40 Discharge Ordered Notes: Location: Home gb Problem: new gb1 Symptoms: have improved gb1 Condition: Stable gb1 Diagnosis - Sprain of ribs gb1 Followup: gb1 - With: Private Physician - When: - Reason: Recheck today's complaints Discharge Instructions: - Discharge Summary Sheet gb1 - Rib Contusion gb1 Forms: - Medication Reconciliation Form gb1 - Antibiotic Education gb1 - Prescription Opioid Use gb1 - Patient Portal Instructions gb1 - Leadership Thank You Letter gb1 Signatures: Dispatcher [employer] Johanna Mclaughlin, RN RN Nayely Castellanos MD MD gb1 Corrections: (The following items were deleted from the chart) 19:04 19:03 On Saturday patient fell and hit her right side of her rib cage on the edge of the gb1 bathtub. She is not being seen here today for flu symptoms she is here for a fall. No pain with breathing and actually she has been improving but she is not back to her baseline normal. She has a small bruise on the bottom of her rib cage on the right side.. gb1
[2024-07-10 20:23] VITALS: BP 179/75; TEMP 97.6; O2SAT 97
== END 2024-07-10 20:18 | disposition home or self-care (01) ==
LOC: ER 17:43
DX: S23.41XA Sprain of ribs, initial encounter (principal); W18.30XA Fall on same level, unspecified, initial encounter; Y92.009 Unspecified place in unspecified non-institutional (private) residence as the place of occurrence of the external cause; I10 Essential (primary) hypertension
CPT/HCPCS: 71045; 99282

== ENCOUNTER 2024-07-19 17:53 | Observation (INO) | payer OTHER ==
--- OUTSIDE RECORDS SUMMARY | 2024-07-19 17:56 | XMS REPORT | Continuity of Care Document ---
Author Name Unknown Address [address] [facility] [address] [place] [address] [facility] [place] Address [address] [facility] [address] [place] [address] Care Team Providers Care Methodologist Name Role Phone Austen Miller NP Primary Care Physician +- [phone] No, PCP Attending Clinician Unavailable Doctor Unassigned, [place] Attending Clinician U BRADEN Gurrola Attending Clinician Unavailable BRADEN HUERTAS Attending Clinician Unavailable MIKE CLEMENTS Attending Clinician Unavailab marilyn SOUZAPMike Attending Clinician [phone] EDER CHARLES Attending Clinician Unavailable Eder Charles MD Attending Clinician [phone] ISMAEL CAROLINA Attending Clinician Unavailable Ismael Carolina MD Attending Clinician [phone] [facility], [facility] Attending Clinician Unavailabl e RADIOLOGY Attending Clinician Unavailable Radiology Attending Clinician Unavailable Doctor Unassigned, [place] Attending Clinician U MIKE Ann Admitting Clinician Unavailab EDER Iyer Admitting Clinician Unavailable ISMAEL CAROLINA Admitting Clinician Unavailable Ismael Carolina MD Admitting Clinician [phone] AUSTEN MILLER Admitting Clinician Unavailab marilyn Payers Payer Name Policy Type Policy Number Effective Date Expirati on Date Source Problems Condition Name Condition Details Condition Category Status Onset Date Resolution Date Last Treatment Date Treating Clinician Comments Source Alzheimer' s disease Alzheimer' s disease, unspecifie d Problem [facility] Mild major depression , single episode Major depressive disorder, single episode, mild Problem [facility] Anxiety disorder Anxiety disorder, unspecifie d Problem [facility] Electroenc ephalogram abnormal Abnormal electroenc ephalogram [EEG] Problem [facility] Amnesia Other amnesia Problem [facility] Visual Disturbanc e Other visual disturbanc es Problem [facility] 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, unspecifie d Problem [facility] Multiple sclerosis Multiple sclerosis Problem [facility] [id number] Status post placement of VNS (vagus nerve stimulatio n) device Problem [facility] Occlusion and stenosis of multiple and bilateral cerebral arteries Occlusion and stenosis of bilateral carotid arteries Problem [facility] Chronic pain syndrome Chronic pain syndrome Problem [facility] Presence of brain neurostimu lator device Presence of brain neurostimu lator device Problem [facility] Insomnia Insomnia due to medical condition Problem [facility] [id number] Essential hypertensi on Problem [facility] Anxiety Anxiety Problem [facility] Paranoia Paranoia Problem [facility] Hyperlipid aemia HLD (hyperlipi demia) Problem [facility] Dizziness Dizziness Problem [facility] Epilepsy Epilepsy, unspecifie d, not intractabl e, without status epilepticu s Problem [facility] Allergies, Adverse Reactions, Alerts Allergy Name Allergy Type Status Severity Reaction(s) Onset Date Inactive Date Treating Clinician Comments Source PENICILL IN DRUG INGREDI Active ITCHING 07-17 00:00: 00 [facility] Penicill in Propensi ty to adverse reaction s Active Swelling 07-17 00:00: 00 [facility] NO KNOWN ALLERGIE S Drug Class Active [facility] Substanc e with penicill in structur e and antibact erial mechanis m of action (substan ce) Substanc e with penicill in structur e and antibact erial mechanis m of action (substan ce) Active Unknown [place] [facility] Social History Social Habit Start Date Stop Date Quantity Comments Source Sexual orientation U [facility] History of Tobacco Use [facility] Sex Assigned At [facility] Tobacco use and exposure 2023-07-31 00:00:00 2023-07-31 00:00:00 Smokeless tobacco non-user [facility] History of Social function 2023-07-31 00:00:00 2023-07-31 00:00:00 [facility] Smoking Status Start Date Stop Date Source Tobacco smoking consumption unknown [facility] Never Smoker [facility] Medications Ordered Medication Name Filled [...] 40 MG Atorvastati n Calcium 40 MG 6-18 00:00: 00 No 1{table t} QD Atorvastat in Calcium 40 MG gadobenate dimeglumine (MULTIHANCE -15 mL) injection 0.2 mL/kg 08-27 16:15: 00 08-27 16:09 :00 No [id number] .2mL/kg 0.2 mL/kg, Intravenou s, ONCE, 1 dose, On Sat08/28/23 at 1115, Routine [facility] FLUoxetine 20 mg capsule 07-31 14:00: 00 07-31 18:22 :28 No 20mg Take 1 capsule by mouth daily. [facility] montelukast 10 mg tablet 07-31 14:00: 00 07-31 18:22 :28 No 10mg Take 1 tablet by mouth daily. [facility] clonazePAM 1 mg tablet 07-31 14:00: 00 07-31 18:22 :28 No 1mg Take 1 tablet by mouth daily. [facility] metoprolol succinate XL 25 mg 24 hr tablet 07-31 14:00: 00 07-31 18:22 :28 No 25mg Take 1 tablet by mouth daily. [facility] primidone 50 mg tablet 07-31 14:00: 00 07-31 18:22 :28 No 50mg Take 1 tablet by mouth daily. [facility] FLUoxetine 20 mg capsule 07-31 11:22: 25 Yes 20mg Take 1 capsule by mouth daily. [facility] montelukast 10 mg tablet 07-31 11:22: 25 Yes 10mg Take 1 tablet by mouth daily. [facility] eslicarbaze pine (APTIOM) 800 mg Tab 07-31 11:22: 25 Yes Take by mouth daily. [facility] clonazePAM 1 mg tablet 07-31 11:22: 25 Yes 1mg Take 1 tablet by mouth daily. [facility] Levothyroxi ne 112 mcg capsule 07-31 11:22: 25 Yes Take by mouth daily. [facility] atorvastati n 40 mg tablet 07-31 11:22: 25 Yes 40mg Take 1 tablet by mouth at bedtime. [facility] metoprolol succinate XL 25 mg 24 hr tablet 07-31 11:22: 25 Yes 25mg Take 1 tablet by mouth daily. [facility] primidone 50 mg tablet 07-31 11:22: 25 Yes 50mg Take 1 tablet by mouth daily. [facility] levothyroxi ne (SYNTHROID) tablet 112 mcg 07-31 11:00: 00 07-31 18:22 :28 No 112ug 112 mcg, Oral, QAM-0600, First dose on Sat08/01/23 at 0600, Until Discontinu ed [facility] water for injection, sterile injection 10 mL 07-31 08:00: 00 07-31 07:39 :00 No 10mL 10 mL, Intravenou s, ONCE, 1 dose, On Sat08/01/23 at 0300, Routine [facility] donepeziL (ARICEPT) tablet 10 mg 07-31 02:00: 00 07-31 18:22 :28 No 10mg 10 mg, Oral, QHS, First dose on Sat07/31/23 at 2100, Until Discontinu ed, Routine [facility] atorvastati n 40 mg tablet 07-31 02:00: 00 07-31 18:22 :28 No 40mg Take 1 tablet by mouth at bedtime. [facility] sennosides (SENOKOT) tablet 8.6 mg 07-31 01:00: 00 07-31 18:22 :27 No 8.6mg 8.6 mg, Oral, BID, First dose on Sat07/31/23 at 1999, Until Discontinu ed, Routine [facility] famotidine (PEPCID AC) tablet 20 mg 07-31 01:00: 00 07-31 18:22 :27 No 20mg 20 mg, Oral, BID, First dose on Sat07/31/23 at 1999, Until Discontinu ed, Routine [facility] docusate (COLACE) capsule 100 mg 07-31 01:00: 00 07-31 18:22 :27 No 100mg 100 mg, Oral, BID, First dose on Sat07/31/23 at 1999, Until Discontinu ed, Routine [facility] sodium chloride 1,000 mg tablet 07-31 00:00: 00 08-31 04:59 :00 No [id number] 1g Take 1 tablet by mouth 3 (three) times daily with meals for 30 days. [facility] docusate 100 mg capsule 07-31 00:00: 00 08-15 04:59 :00 No [id number] 100mg Take 1 capsule by mouth daily for 14 days. Take with a full glass of water. [facility] methocarbam oL 500 mg tablet 07-31 00:00: 00 08-15 04:59 :00 No [id number] 500mg Take 1 tablet by mouth 4 (four) times daily for 14 days. Indication s: a uncontroll ed muscle contractio n with pain [facility] HYDROcodone -acetaminop hen 5-325 mg tablet 07-31 00:00: 00 08-08 04:59 :00 No [id number] 1{tbl} Take 1 tablet by mouth every 4 (four) hours as needed for Pain (scale 4-6) or Pain (scale 7-10) for up to 7 days. Indication s: acute pain [facility] ceFAZolin (ANCEF) injection 1,000 mg 07-30 23:00: 00 07-31 13:29 :00 No 1000mg 1,000 mg, Intravenou s, Q8H ABX, 3 doses, First dose on Sat07/31/23 at 1800, Last dose on Sat08/01/23 at 1000
Re ason for Anti-Infec tive: Surgical Prophylaxi s
Surgi lily Prophylaxi s: Neurosurge ry
Dura tion of therapy: within 24 hours of surgery [facility] NaCl 0.9% (NS) IV infusion 1,000 mL 07-30 18:15: 00 07-31 18:22 :27 No 1000mL at 75 mL/hr, IV Infusion, CONTINUOUS , Starting on Sat07/31/23 at 1315, Until Sat08/01/23 at 1322, Routine [facility] morpHINE (2 mg/mL) injection 2 mg 07-30 18:03: 26 07-31 18:22 :27 No 2mg 2 mg, Slow IV Push, Q3HPRN, Starting on Sat07/31/23 at 1303, Until Carol 08/01/23 at 1322, Routine, Pain (scale 7-10) [facility] oxyCODONE immediate release tablet 5 mg 07-30 18:03: 13 07-31 18:22 :27 No 5mg 5 mg, Oral, Q4HPRN, Starting on Sat07/31/23 at 1303, Until Carol 08/01/23 at 1322, Routine, Pain (scale 4-6)
Fa culty member approving Restricted medication : BRADEN HUERTAS [facility] acetaminoph en (TYLENOL) tablet 325 mg 07-30 18:03: 11 07-31 18:22 :27 No 325mg 325 mg, Oral, Q6HPRN, Starting on Sat07/31/23 at 1303, Until Carol 08/01/23 at 1322, Routine, Pain (scale 1-3) [facility] bisacodyL (DULCOLAX) suppository 10 mg 07-30 18:01: 07-31 18:22 :28 No 10mg 10 mg, Rectal, QHSPRN, Starting on Sat07/31/23 at 1301, Until Carol 08/01/23 at 1322, Routine, Constipati on [facility] NaCl 0.9% (NS) injection 5 mL 07-30 18:: 07-31 18:22 :28 No 5mL 5 mL, Slow IV Push, PRN - SEE INSTRUCTIO NS, Starting on Sat07/31/23 at 1301, Until Carol 08/01/23 at 1322, 10 mL [facility] lactated ringers IV infusion 1,000 mL 07-30 18:00: 00 07-31 10:40 :22 No 1000mL at 75 mL/hr, 1,000 mL, IV Infusion, CONTINUOUS , Starting on Sat07/31/23 at 1300, Until Carol 08/01/23 at 0540, Routine, PACU [facility] HYDROcodone -acetaminop hen (NORCO 5) 5-325 mg tablet 1 tablet 07-30 18:00: 00 07-30 18:16 :00 No 1{tbl} 1 tablet, Oral, ONCE, 1 dose, On Sat07/31/23 at 1300, Routine, PACU [facility] FENTanyl PF (SUBLIMAZE (PF)) injection 25 mcg 07-30 17:59: 12 07-30 19:27 :00 No 25ug 25 mcg, Slow IV Push, Q5MIN PRN, 4 doses, Starting on Sat07/31/23 at 1259, Until Discontinu ed, Routine, Pain (scale 4-6), PACU [facility] vancomycin (VANCOCIN) 1 g in sodium chloride 0.9 % irrigation 07-30 17:08: 00 07-30 18:11 :58 No PRN, Starting on Sat07/31/23 at 1208, Until Sat07/31/23 at 1311, 1,000 mL, Intra-op [facility] lidocaine-e pinephrine (XYLOCAINE WITH EPINEPHRINE ) 0.5 %-1:200,000 injection 07-30 14:30: 00 07-30 18:11 :58 No PRN, Starting on Sat07/31/23 at 0930, Until Sat07/31/23 at 1311, Routine, Intra-op [facility] Aptiom 800 MG Aptiom 800 MG 3- [...] Time Observation Value Comments S ource height 2024-03-30 09:30:00 63 [in_i] [facility] weight-kg 2024-03-30 09:30:00 70.85 kg [place] [facility] bmi 2024-03-30 09:30:00 27.67 kg/m2 [facility] respiratory rate 2024-03-30 09:30:00 16 /min [place] [facility] heart rate 2024-03-30 09:30:00 63 /min [place] [facility] blood pressure systolic 2024-03-30 09:30:00 163 mm[Hg] [facility] blood pressure diastolic 2024-03-30 09:30:00 93 mm[Hg] [facility] height 2023-11-27 09:30:00 63 [in_i] [facility] weight-[facility] 2023-11-27 09:30:00 73.03 kg [facility] bmi 2023-11-27 09:30:00 28.52 kg/m2 [facility] heart rate 2023-11-27 09:30:00 58 /min [facility] blood pressure systolic 2023-11-27 09:30:00 198 mm[Hg] [facility] blood pressure diastolic 2023-11-27 09:30:00 101 mm[Hg] [facility] Body height 2023-08-20 16:03:00 152.4 cm [facility] Body weight 2023-08-20 16:03:00 72.576 kg [facility] BMI 2023-08-20 16:03:00 31.25 kg/m2 [facility] Systolic blood pressure 2023-08-01 12:56:00 108 mm[Hg] [facility] Diastolic blood pressure 2023-08-01 12:56:00 60 mm[Hg] [facility] Heart rate 2023-08-01 12:56:00 55 /min [facility] Body temperature 2023-08-01 12:56:00 36.72 Rebecca [facility] Respiratory rate 2023-08-01 12:56:00 18 /min [facility] Oxygen saturation in Arterial blood by Pulse oximetry 2023-08-01 12:56:00 96 /min [facility] Body height 2023-07-31 11:40:00 157.5 cm [facility] Body weight 2023-07-31 11:40:00 71.7 kg [facility] BMI 2023-07-31 11:40:00 28.91 kg/m2 [facility] Systolic blood pressure 2023-07-31 12:15:00 148 mm[Hg] [facility] Diastolic blood pressure 2023-07-31 12:15:00 60 mm[Hg] [facility] Heart rate 2023-07-31 11:40:00 61 /min [facility] Body temperature 2023-07-31 11:40:00 36.44 Rebecca [facility] Respiratory rate 2023-07-31 11:40:00 18 /min [facility] Body height 2023-07-31 11:40:00 157.5 cm [facility] Body weight 2023-07-31 11:40:00 71.7 kg [facility] BMI 2023-07-31 11:40:00 28.91 kg/m2 [facility] Oxygen saturation in Arterial blood by Pulse oximetry 2023-07-31 11:40:00 97 /min [facility] Systolic blood pressure 2023-07-18 20:22:00 136 mm[Hg] [facility] Diastolic blood pressure 2023-07-18 20:22:00 82 mm[Hg] [facility] Heart rate 2023-07-18 20:22:00 62 /min [facility] Body height 2023-07-18 20:22:00 154.9 cm [facility] Body weight 2023-07-18 20:22:00 70.761 kg [facility] BMI 2023-07-18 20:22:00 29.48 kg/m2 [facility] Procedures Procedure Date / Time Performed Performing Clinician Source MR BRAIN W WO CONTRAST 2023-08-28 16:11:00 Sugar Clements [facility] XR CHEST 2 VW 2023-08-14 16:06:09 Eder Charles [facility] BASIC METABOLIC PANEL (NA, K, CL, CO2, GLUCOSE, BUN, CREATININE, CA) 2023-08-01 10:21:00 Andressa Mai [facility] CBC WITH DIFF 2023-08-01 10:21:00 Lilliana Mai [facility] BASIC METABOLIC PANEL (NA, K, CL, CO2, GLUCOSE, BUN, CREATININE, CA) 2023-08-01 10:21:00 Andressa Mai [facility] CBC WITH DIFF 2023-08-01 10:21:00 Lilliana Mai [facility] VAGAL NERVE STIMULATOR INSERTION 2023-07-31 13:46:00 Day Braden [facility] VAGAL NERVE STIMULATOR INSERTION 2023-07-31 13:46:00 Day, [facility] VAGAL NERVE STIMULATOR INSERTION 2023-07-31 13:46:00 Day, [facility] VAGAL NERVE STIMULATOR INSERTION 2023-07-31 13:46:00 Day, [facility] VAGAL NERVE STIMULATOR INSERTION 2023-07-31 13:46:00 Day, [facility] VAGAL NERVE STIMULATOR INSERTION 2023-07-31 13:46:00 Day [facility] ABORH CONFIRMATION (LAB ONLY) 2023-07-31 12:58:00 Day [facility] ABORH CONFIRMATION (LAB ONLY) 2023-07-31 12:58:00 Braden Huertas [facility] HB ABO GROUPING 2023-07-31 12:10:00 [facility] 2023-07-31 12:10:00 [facility] 1 VW 2023-07-25 15:20:00 Mike Clements [facility] REFERRAL- REQUEST/RESPONSE 2023-07-16 15:46:28 Doctor Unassigned, [place] [facility] XR KUB 2021-07-12 20:31:41 Austen Miller [facility] XR HIPS 2 VW RIGHT 2021-07-12 20:31:41 Austen Miller [facility] ASSIGNMENT OF BENEFITS 2021-07-12 20:16:30 Docto r Unassigned, [place] [facility] Encounters Start Date/Time End Date/Time Encounter Type Admission Type Attending Clinicians Care Facility Care Department Encounter ID Source 2024-03-31 08:35:01 Outpatient No, PCP [facility] [id number] [facility] 2023-11-27 09:06:01 Outpatient No, PCP [facility] [id number] [facility] 2024-04-06 00:00:00 2024-05-09 18:20:12 Patient Secure Msg Doctor Unassigned, [place] Doctor Unassigned, [place] [facility] 1..840.114 350.1.13.10 4.2.7.2.686 [id number] [facility] 2024-04-01 00:00:00 2024-04-01 00:00:00 (TEL) CLS CLS [id number] [facility] 2024-03-30 00:00:00 2024-03-30 00:00:00 (TEL) CLS CLS [id number] [facility] 2024-03-30 00:00:00 2024-03-30 00:00:00 Office Visit- Est Pt.- Level 5 [facility] CLS [id number] [facility] 2023-11-27 00:00:00 2023-11-27 00:00:00 Office Visit- Est Pt.- Level 4 [facility] CLS [id number] [facility] 2023-10-29 11:00:00 2023-10-29 11:00:00 Outpatient BRADEN KEY [facility] [id number] [facility] 2023-10-17 13:00:00 2023-10-17 13:00:00 Outpatient BRADEN KEY [facility] [id number] [facility] 2023-08-28 09:04:28 2023-08-28 23:59:00 Outpatient MIKE POWELL [facility] [id number] [facility] 2023-08-28 09:04:28 2023-08-28 23:59:00 Hospital Encounter Mike Clements [facility] .840.114 350.1.13.10 4.2.7.2.686 [id number] [facility] 2023-08-20 11:15:00 2023-08-20 12:45:50 Office Visit Braden Huertas [facility] 1..840.114 350.1.13.10 4.2.7.2.686 [id number] [facility] 2023-08-20 11:15:00 2023-08-20 12:45:50 Outpatient R BRADEN HUERTAS [facility] [id number] [facility] 2023-08-14 10:37:36 2023-08-14 23:59:00 Outpatient R EDER CHARLES [facility] [id number] [facility] 2023-08-14 10:30:00 2023-08-14 23:59:00 Hospital Encounter Eder Charles [facility] 1.2.840.114 350.1.13.10 4.2.7.2.686 [id number] [facility] 2023-07-31 06:25:00 2023-08-01 11:22:00 Outpatient ISMAEL GAMBINO [facility] [id number] [facility] 2023-07-31 06:25:00 2023-08-01 11:22:00 Hospital Encounter Braden Huertas Ismael [facility] 1.2.840.114 350.1.13.10 4.2.7.2.686 [id number] [facility] 2023-07-31 08:38:00 2023-07-31 10:21:00 Surgery Braden Huertas [facility] 1.2.840.114 350.1.13.10 4.2.7.2.686 [id number] [facility] 2023-07-25 09:52:32 2023-07-25 23:59:00 Outpatient MIKE POWELL [facility] [id number] [facility] 2023-07-25 09:52:32 2023-07-25 23:59:00 Hospital Encounter Mike Clemetns [facility] 1.20.114 350.1.13.10 4.2.7.2.686 [id number] [facility] 2023-07-25 11:00:00 2023-07-25 11:15:00 Software Quality Tester Visit Draw, [facility] Mike Clements [facility] 1.20.114 350.1.13.10 4.2.7.2.686 [id number] [facility] 2023-07-18 14:45:00 2023-07-18 16:14:50 Outpatient R BRADEN HUERTAS [facility] [id number] [facility] 2023-07-18 14:45:00 2023-07-18 16:14:50 Office Visit Braden Huertas [facility] 1.20.114 350.1.13.10 4.2.7.2.686 [id number] [facility] 2021-07-12 15:18:36 2021-07-12 23:59:00 Outpatient R RADIOLOGY [facility] [id number] [facility] 2021-07-12 15:15:00 2021-07-12 23:59:00 Hospital Encounter Radiology [facility] 1.20.114 350.1.13.10 4.2.7.2.686 [id number] [facility] 2021-07-12 00:00:00 2021-07-12 00:00:00 Orders Only Doctor Unassigned, [place] [facility] 1.20.114 350.1.13.10 4.2.7.2.686 [id number] [facility] Results Test Description Test Time Test Comments Results Result Comments Source MR BRAIN W WO CONTRAST 8 16:58:27 MR BRAIN W WO CONTRAST COMPARISON: None. HISTORY: epilepsy 3 Nadya only; epilepsy protocol; DTI with 64 directions TECHNIQUE: Multisequence multiplanar MR images of the brain obtainedwithout and with IV contrast.Quantitative volumetry of the brain was performed using NeuroQuant([employer], [place], [place]) software package. The NeuroQuantanalysis was based [...] T2 hyperintensity with peripheral T2 hypointense and O4oaujiqexaflo signal with associated susceptibility signal loss in [...] were within 2 SD of the mean. [facility] XR CHEST 2 VW 2023-07-23 4 16:18:58 HISTORY: Evaluate position of VNS [...] the left anterior second and third ribs[facility] 13:10:00* Test Item Value Reference Range Interpretation Comme nts ABO & RH (test code = 20) B Positive [facility] Confirmation (Lab Only)2023-07-31 13:10:00* Test Item Value Reference Range Interpretation Comme nts ABO & RH (test code = 20) [facility] [id number] 12:20:00* Test Item Value Reference Range Interpretation Comme nts ABO & RH (test code = 20) B POSITIVE IAT (test code = 1185) Negative [facility] [id number] 12:20:00* Test Item Value Reference Range Interpretation Comme nts ABO & RH (test code = 20) B POSITIVE IAT (test code = 1185) Negative [facility] [id number] 12:20:00* Test Item Value Reference Range Interpretation Comme nts ABO & RH (test code = 20) B POSITIVE IAT (test code = 1185) Negative [facility] [id number] 18:25:24EXAM: XR CHEST 1 VW COMPARISON: None [...] projected over the left lower neck, nonspecific. Inspectionrecommended.[facility]/[id number] 15:46:28Ordered by an unspecified provider.[facility]/[id number] 15:46:28Ordered by an unspecified provider.[facility] Consult Notes Date/Time Note Provider Source [...] Left 07/31/2023 Surgeon: Braden Huertas MD; Location: [facility] OR LOCATION Prior Living Situation: in [...] before and after session COMMUNICATION Primary Language: Rwandan , pt able to understand/speak some Slovenian, however daughter available to translate Rwandan when needed. Able to Verbalize needs: Yes [...] 12 min Jacey Acevedo PT, DPT T [facility] - Health History and Physical Notes Date/Time [...] Navarro MD Neurosurgery For inquiries please page [phone] Neurosurgery Clinic Note 07/18/2023 Chief Complaint: VNS [...] signing the medical record. Braden Huertas MD Art History Instructor [facility] Department of Neurosurgery Associated attestation - Braden [...] She agrees to proceed. Braden Huertas MD [facility] Neurosurgery [facility] - Health Notes Date/Time Note Provider Source 2023-08-01 11:00:00 Discharge education provided with discharge instruction explained and copy provided to the patient and her daughter. PIV to right hand removed, catheter tip intact, gauze applied and no bleeding noted. Patient left with her daughter along with her personal belongings. [facility] 2023-08-01 10:25:00 Occupational therapy reported that patient had an episode of absence seizure during the therapy. Patient is awake and alert upon assessment during this time. Respiration even and unlabored. [facility] 2023-08-01 07:49:29 Problem: Discharge Planning Goal: Adequate for discharge Outcome: Progressing as expected Goal: Effective communication Outcome: Progressing as expected Problem: Pain Goal: Control of pain at or below patient's documented comfort goal Outcome: Progressing as expected Goal: Reduction in pain sensation Outcome: Progressing as expected Problem: Falls, Risk of Goal: Absence of falls Outcome: Progressing as expected [facility] 2023-07-31 23:13:10 Problem: Discharge Planning Goal: Adequate for discharge Outcome: Progressing as expected Problem: Pain Goal: Control of pain at or below patient's documented comfort goal Outcome: Progressing as expected Problem: Falls, Risk of Goal: Absence of falls Outcome: Progressing as expected [facility] Deidre Barry RN [facility] 2023-07-31 17:50:00 Received patient from PACU. AOx4. Left neck incision and left upper chest incision with derma frausto, no bleeding noted. Daughter at bedside. Call light in reach.Respiration even and unlabored without SOB. 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 Braden Huertas MD Art History Instructor [facility] Department of Neurosurgery 07/31/2023 T [facility] 2023-07-25 11:00:00 Images from the original note were not included. Venipuncture collection performed by clean technique on the left anticubitus. Total of 1 attempts were made. Slight pressure and a bandage/dressing were applied to the site(s). The patient experienced no complications. The following specimens were processed according to instructions and sent to [facility] laboratories per lab order on 07/25/2023: LT BLUE 1 SST 1 RED LAV 1 PPT DK GREEN (LiHep) DK GREEN (SodH) BUCKLEY DK BLUE (K2) DK BLUE (S) ACD Blood Culture NIPT/NTD T [facility]
[2024-07-19 18:45] LABS: Absolute Basophils 0.1 K/uL (0-0.5); Absolute Eosinophils 0.1 K/uL (0-0.5); Absolute Lymphocytes (CBC) 1.5 K/uL (0.7-4.9); Absolute Monocytes 0.9 K/uL (0.1-1.3); Absolute Neutrophil 6.3 K/uL (1.8-8.0); Basophils % 0.7 % (0-1.3); Eosinophils % 1.5 % (0-4.4); Hematocrit 34.6 % (36.0-45.0); Hemoglobin 12.2 g/dL (12.0-15.0); Lymphocytes % 16.7 % (15.3-44.8); MCH 30.8 pg (27.0-35.0); MCHC 35.2 g/dL (32.0-36.0); MCV 87.4 fL (80-100); MPV 7.5 fL (7.6-11.3); Monocytes % 9.9 % (3.3-12.3); Neutrophils % 71.2 % (41.7-73.7); Platelets 278 thou/uL (152-406); RBC Red Blood Cell Count 3.96 M/uL (3.86-4.86)
--- NOTE | 2024-07-19 18:50 | RAD REPORT ---
EXAMINATION: Head C Spine Mpr Wo Con CLINICAL INDICATION: Female, 63 years old. fall TECHNIQUE: Axial CT images from the skull base to the vertex without intravenous contrast. Axial CT i mages through the cervical spine were obtained without intravenous contrast. Sagittal and coronal reformatted images were created from the data set. Coronal and sagittal reformatted images were creat ed from the data set. One or more of the following dose reduction techniques were used: Automated exposure control, adjustment of the mA and/or kV according to patient size, and/or iterative reconstr uction. Unless otherwise specified, incidental findings do not require dedicated imaging follow-up. [id number]. COMPARISON: 10/28/2020 FINDINGS: Head: INTRACRANIAL: No acute intracranial hemorrhage. No hydrocephalus. No mass effect or midline shift. Mi ld chronic small vessel ischemic changes. VASCULATURE: No visualized abnormalities in the arteries or dural venous sinuses. SCALP/SKULL: No calvarial fracture identified. Right parietal scalp hematoma. SINUSES: Paranasal sinus thickening at the maxillary sinuses, ethmoid air cells, and frontal sinuses. No significant mastoid fluid. Cervical spine: ALIGNMENT: The cervical spine has normal alignment without scoliosis or spondylolisthesis. BONE: Sclerotic focus in the posterior aspect of C4 is unchanged and likely bone island. DEGENERATIVE: No significant focal degenerative changes. SOFT TISSUE: No significant abnormalities in the soft tissue of the neck. The visualized lung apices are clear. Vagal nerve stimulator IMPRESSION: No acute intracranial abnormality. No acute fracture or traumatic malalignment of the cervical spine.
[2024-07-19 18:51] LABS: PT Prothrombin Time 10.9 SECONDS (10-13.0); PTT, Activated Partial Thromb 27.7 SECONDS (27.2-37.4); Protime INR 0.95
[2024-07-19 18:52] LABS: Anion Gap 7.7 mEq/L (5.0-15.0); Potassium 3.7 mEq/L (3.5-5.1)
--- NOTE | 2024-07-19 19:01 | RAD REPORT ---
EXAM: Chest Abd Pelvis Wo Con CLINICAL INDICATION: Female, 63 years old fall, head/back/rib pain TECHNIQUE: CT chest, abdomen and pelvis was performed, without IV contrast, as per department protoco l. Axial, sagittal and coronal reconstructions were obtained. One or more of the following dose reduction techniques were used: Automated exposure control, adjustment of the mA and/or kV according to the patient size, and/or iterative reconstruction. Unless otherwise specified, incidental findings do not require dedicated imaging follow-up. [id number]. COMPARISON: No prior exam. FINDINGS: The lack of intravenous contrast limits the sensitivity of this exam for evaluation of solid visceral organs, vascular structures, and retroperitoneum. ---THORAX--- LOWER NECK AND CHEST WALL: Visualized thyroid gland and soft tissues are normal. Vagal nerve stimulat or. LUNGS AND AIRWAYS: Bronchial wall thickening and mild nodularity in the lower lobes. There is also so me nodularity in the lingula.No suspicious and/or stable pulmonary nodules. PLEURA: Small bilateral pleural effusions. No pneumothorax. MEDIASTINUM AND LYMPH NODES: No mediastinal mass or fluid collection. Normal size mediastinal, hilar, and axillary lymph nodes. Diffuse esophageal wall thickening. THORACIC AORTA: No thoracic aortic aneurysm. PULMONARY ARTERIES: Caliber is within normal limits. Unable to evaluate for pulmonary emboli due to e ither protocol or lack of contrast. HEART: Mild cardiomegaly. No coronary calcifications.Small pericardial effusion. ---ABDOMEN/PELVIS--- UPPER GI: No significant abnormality. LIVER: No significant focal abnormality. GALLBLADDER/BILE DUCTS: No biliary ductal dilatation.? PANCREAS: No mass, ductal dilation, or jolene-pancreatic fluid. SPLEEN: Unremarkable. ADRENALS: No adrenal masses. KIDNEYS AND URETERS: No hydronephrosis.Low density and/or too small to characterize renal lesions whi ch are statistically benign.No renal calculi.No ureteral calculi. ABDOMINAL AORTA AND OTHER VESSELS: Mild atherosclerotic changes. PERITONEUM: No abnormal free fluid. No free air. LYMPH NODES: No pathologic lymphadenopathy. ABDOMINAL WALL: Unremarkable SMALL BOWEL/COLON: Small bowel has normal course and caliber. No colonic wall thickening or pericolon ic inflammatory changes.Normal appendix. Moderate formed stool burden. URINARY BLADDER: Underdistended but grossly unremarkable. REPRODUCTIVE ORGANS: No pathologic process. ---COMBINED--- MUSCULOSKELETAL: Nondisplaced right seventh, eighth, ninth, 10th rib fractures anterolaterally. Acute right posterior 10th and 11th rib fractures. Note that the right 10th rib fracture is segmental. ADDITIONAL FINDINGS: None. IMPRESSION: Right 7th through 11th rib fractures which are at most mildly displaced. The right 10th rib fracture is segmental. No underlying pneumothorax. Pneumonitis. Small bilateral effusions as well as bronchial wall thickening and mild nodularity in the lung bases and lingula could reflect No evidence of significant trauma to the abdomen or pelvis.
[2024-07-19] MEDS ORDERED: NA CHLORIDE 0.9% 250 ML ONE (19:15)
[2024-07-19] MEDS ORDERED: cloNIDine HCL 0.1 MG TAB ONE (19:15)
--- NOTE | 2024-07-19 19:19 | ER ---
Nurse's Notes [facility] Name: Susan Rodriguez Age: 63 yrs Sex: Female : 1960 Arrival Date: 07/19/2024 Time: 17:53 Bed 7 Private MD: Diagnosis: Unspecified injury of head, initial encounter;Multiple fractures of ribs, right side Presentation: 07/19 18:10 Chief complaint: Patient's son or daughter states: PATIENT FELL TODAY WHILE TAKING A db SHOWER. HIT RIGHT SIDE OF HEAD ON THE TOILET. NOTED BRUISING AND SWELLING WITH TENDERNESS. STATES ALSO FELL 2 WEEKS AGO WHILE TAKING A SHOWER. Coronavirus screen: Client denies travel out of the [place] in the last 14 days. At this time, the client does not indicate any symptoms associated with coronavirus-19. Ebola Screen: Patient negative for fever greater than or equal to 101.5 degrees Fahrenheit, and additional compatible Ebola Virus Disease symptoms Patient denies exposure to infectious person. Patient denies travel to an Ebola-affected area in the 21 days before illness onset. No symptoms or risks identified at this time. Mechanism of Injury: resulted from a fall. Initial Sepsis Screen: Does the patient meet any 2 criteria? No. Patient's initial sepsis screen is negative. Does the patient have a suspected source of infection? No. Patient's initial sepsis screen is negative. Risk Assessment: Do you want to hurt yourself or someone else? Patient reports no desire to harm self or others. 18:10 Method Of Arrival: Ambulatory db 18:10 Acuity: MARIO 2 db Triage Assessment: 18:10 General: Appears in no apparent distress. comfortable, Behavior is calm, cooperative. db Pain: Complains of pain in right temporal area, right subscapular area and right mid back. Neuro: Level of Consciousness is awake, alert, obeys commands, Oriented to person, place, time, situation, Denies dizziness. Respiratory: Airway is patent Respiratory effort is even, unlabored, Respiratory pattern is regular, symmetrical. Historical: - Allergies: 18:10 PENICILLINS; db - PMHx: 18:10 Anxiety; Hypothyroidism; Hypertensive disorder; Seizure; Hyperlipidemia; Randomly db passes out; - Immunization history:: Adult Immunizations unknown. - Infectious Disease History:: Denies. - Social history:: Smoking status: Patient denies any tobacco usage or history of. - Family history:: not pertinent. - Hospitalizations: : No recent hospitalization is reported. Screenin:30 [facility] ED Fall Risk Assessment (Adult) History of falling in the last 3 months, dd2 including since admission Yes- physiologic fall (2 pts) Confusion or Disorientation No (0 pts) Intoxicated or Sedated No (0 pts) Impaired Gait No (0 pts) Mobility Assist Device Used No (0 pt) Altered Elimination No (0 pt) Score/Fall Risk Level 0 - 2 = Low Risk Oriented to surroundings, Maintained a safe environment, Educated pt \T\ family on fall prevention, incl call for assistance when getting out of bed, Assessed \T\ reinforced patient's understanding of fall precautions, Provided non-skid footwear, Hourly rounding (assess needs \T\ fall precautionary measures) done, Used ambulatory aids as needed (educated on \T\ assisted with). Abuse screen: Denies threats or abuse. Denies injuries from another. Nutritional screening: No deficits noted. Tuberculosis screening: No symptoms or risk factors identified. Assessment: 18:15 General: Appears uncomfortable, Behavior is calm, cooperative. Pain: Complains of pain aa5 in right frontal area and right side of the back of head Pain currently is 8 out of 10 on a pain scale. Quality of pain is described as aching, pressure, throbbing, Pain began post fall Is continuous. Neuro: Level of Consciousness is awake, alert, obeys commands, Oriented to person, place, time, situation, Medical Writer are equal bilaterally Moves all extremities. Speech is normal, Facial symmetry appears normal. Cardiovascular: Heart tones S1 S2 present Rhythm is regular. Respiratory: Airway is patent Respiratory effort is even, unlabored, Respiratory pattern is regular, symmetrical. GI: No signs and/or symptoms were reported involving the gastrointestinal system. : No signs and/or symptoms were reported regarding the genitourinary system. EENT: No signs and/or symptoms were reported regarding the EENT system. Derm: Skin is pink, warm \T\ dry. Hematoma with purple bruising noted to right side of head, approximately golf ball sized. Musculoskeletal: Range of motion: intact in all extremities. Injury Description: Reports she fell in the shower today. Vital Signs: 18:10 BP 222 / 95; Pulse 88; Resp 16; Temp 99.7; Pulse Ox 94% ; Weight 68.95 kg; Height 5 ft. db 2 in. ; 18:58 BP 217 / 90; Pulse 82; Resp 18 S; Pulse Ox 95% on R/A; aa5 20:00 BP 182 / 86; Pulse 80; Resp 18; Pulse Ox 94% ; me1 21:00 BP 179 / 78; Pulse 68; Resp 17; Pulse Ox 93% ; me1 22:00 BP 163 / 71; Pulse 67; Resp 17; Pulse Ox 92% ; me1 22:53 BP 155 / 74; Pulse 65; Resp 14; Temp 98.3; Pulse Ox 95% ; me1 18:10 Body Mass Index 27.80 (68.95 kg, 157.48 cm) db Tricia Coma Score: 18:10 Eye Response: spontaneous(4). Motor Response: obeys commands(6). Verbal Response: db oriented(5). Total: 15. 18:21 Eye Response: spontaneous(4). Motor Response: obeys commands(6). Verbal Response: rn oriented(5). Total: 15. 19:11 Eye Response: spontaneous(4). Motor Response: obeys commands(6). Verbal Response: rn oriented(5). Total: 15. ED Course: 17:57 Patient arrived in ED. al6 18:09 Lucas Samayoa MD is Attending Physician. rn 18:10 Arm band placed on Patient placed in an exam room. db 18:16 Triage completed. db 18:44 Chest Abd Pelvis Wo Con In Process Unspecified. EDMS 18:44 Head C Spine Mpr Wo Con In Process Unspecified. EDMS 18:55 Audra Mahoney RN is Primary Nurse. aa5 19:08 Report given to CHRISIT Romero. aa5 19:18 Falguni Delacruz MD is Hospitalizing Provider. rn 21:30 Patient has correct armband on for positive identification. Bed in low position. Call dd2 light in reach. Side rails up X2. Client placed on continuous cardiac and pulse oximetry monitoring. NIBP monitoring applied. Door closed. Noise minimized. Warm blanket given. Pillow given. Verbal reassurance given. 21:30 No provider procedures requiring assistance completed. EKG done, by ED staff, reviewed dd2 by Lucas Samayoa MD. Patient maintains SpO2 saturation greater than 95% on room air. 21:54 Provided Education on: ADMISSION EDUCATION. dd2 21:54 Patient admitted, IV remains in place. dd2 Administered Medications: 19:22 Drug: NS 0.9% IV 250 ml IV at calculated rate once; to be given as a bolus over 30 cm10 minutes Route: IV; Rate: calculated rate; Site: right antecubital; 19:52 Follow up: IV Status: Completed infusion; IV Intake: 250ml dd2 19:23 Drug: cloNIDine PO 0.1 mg PO once Route: PO; cm10 21:12 Follow up: Response: No adverse reaction me1 19:59 Drug: morphine IVP or IV 2 mg IVP once over 4 mins Route: IVP; Infused Over: 4 mins; me1 Site: right antecubital; 21:12 Follow up: Response: No adverse reaction; Pain is decreased me1 Medication: 21:54 VIS not applicable for this client. dd2 Intake: 19:52 IV: 250ml; Total: 250ml. dd2 Outcome: 19:18 Decision to Hospitalize by Provider. rn 21:54 Admitted to ER Hold. Please see [facility] for further documentation. dd2 21:54 Condition: stable 21:54 Instructed on the need for admit, Demonstrated understanding of instructions, 22:54 Admitted to Med/surg accompanied by tech, via wheelchair, room 230, with chart, Report me1 called to faxed, receipt confirmed with Deya 22:55 Patient left the ED. me1 Signatures: Dispatcher [employer] EDLucas Schumacher MD MD rn Calderon, Audri, RN RN aa5 Ally Adler RN RN db Martinez, Clarissa, RN RN cm10 Katiuska Patino RN RN me1 ERWIN ALSTON RN RN dd2 Rivka Luz6 Corrections: (The following items were deleted from the chart) 18:17 18:10 Acuity: MARIO 3 db db
--- NOTE | 2024-07-19 19:19 | EDPHYS ---
Physician Documentation [facility] Name: Susan Rodriguez Age: 63 yrs Sex: Female : 1960 Arrival Date: 07/19/2024 Time: 17:53 Bed 7 Private MD: ED Physician Lucas Samayoa HPI: 07/19 18:21 This 63 yrs old Female presents to ER via Ambulatory with complaints of Head rn Injury-Adult. 18:21 The patient or guardian reports injury, pain. The complaints affect the right side of rn the back of head. Onset: The symptoms/episode began/occurred just prior to arrival. Severity of symptoms: At their worst the symptoms were mild, in the emergency department the symptoms are unchanged. The patient has experienced similar episodes in the past. Patient reports was in the shower, thinks she slipped, fell outside of shower and struck right back of head on toilet. No LOC. Remembers all events. Denies preceding chest pain or shortness of breath. Currently reports pain to the right side of head on the posterior side as well as right flank pain and right posterior thoracic pain. Denies extremity injury or pain. Does not take blood thinners. Patient with history of seizure but family member reports usually postictal and this time she was wide-awake and called her for help.. Historical: - Allergies: 18:10 PENICILLINS; db - PMHx: 18:10 Anxiety; Hypothyroidism; Hypertensive disorder; Seizure; Hyperlipidemia; Randomly db passes out; - Immunization history:: Adult Immunizations unknown. - Infectious Disease History:: Denies. - Social history:: Smoking status: Patient denies any tobacco usage or history of. - Family history:: not pertinent. - Hospitalizations: : No recent hospitalization is reported. ROS: 18:21 Constitutional: Negative for fever, chills, and weight loss, Neck: Negative for injury, rn pain, and swelling, Cardiovascular: Negative for chest pain, palpitations, and edema, Respiratory: Negative for shortness of breath, cough, wheezing, and pleuritic chest pain, Abdomen/GI: Negative for abdominal pain, nausea, vomiting, diarrhea, and constipation, Back: Positive for right flank and back pain MS/Extremity: Negative for injury and deformity, Skin: Negative for injury, rash, and discoloration, Neuro: Positive for headache and head injury Exam: 18:21 Constitutional: This is a well developed, well nourished patient who is awake, alert, rn and in no acute distress. Head/Face: Normocephalic, right posterior parietal hematoma, no laceration or active bleeding. Eyes: Pupils equal round and reactive to light, extra-ocular motions intact. Lids and lashes normal. Conjunctiva and sclera are non-icteric and not injected. Cornea within normal limits. Periorbital areas with no swelling, redness, or edema. ENT: No oral trauma Neck: No midline cervical tenderness Cardiovascular: Regular rate and rhythm. No pulse deficits. Respiratory: No increased work of breathing, no retractions or nasal flaring. Abdomen/GI: Soft, non-tender Back: No midline spinal tenderness. Mild tenderness right parathoracic region and right posterior inferior ribs. No crepitus or mobile segments MS/ Extremity: Pulses equal, no cyanosis. Neurovascular intact. Full, normal range of motion. Equal circumference. Neuro: Awake and alert, GCS 15, oriented to person, place, time, and situation. Motor strength 5/5 in all extremities. Sensory grossly intact. 19:00 ECG was reviewed by the Attending Physician. rn Vital Signs: 18:10 BP 222 / 95; Pulse 88; Resp 16; Temp 99.7; Pulse Ox 94% ; Weight 68.95 kg; Height 5 ft. db 2 in. ; 18:58 BP 217 / 90; Pulse 82; Resp 18 S; Pulse Ox 95% on R/A; aa5 20:00 BP 182 / 86; Pulse 80; Resp 18; Pulse Ox 94% ; me1 21:00 BP 179 / 78; Pulse 68; Resp 17; Pulse Ox 93% ; me1 22:00 BP 163 / 71; Pulse 67; Resp 17; Pulse Ox 92% ; me1 22:53 BP 155 / 74; Pulse 65; Resp 14; Temp 98.3; Pulse Ox 95% ; me1 18:10 Body Mass Index 27.80 (68.95 kg, 157.48 cm) db Tricia Coma Score: 18:10 Eye Response: spontaneous(4). Motor Response: obeys commands(6). Verbal Response: db oriented(5). Total: 15. 18:21 Eye Response: spontaneous(4). Motor Response: obeys commands(6). Verbal Response: rn oriented(5). Total: 15. 19:11 Eye Response: spontaneous(4). Motor Response: obeys commands(6). Verbal Response: rn oriented(5). Total: 15. MDM: 18:09 Medical Screening Exam initiated rn 19:11 Differential diagnosis: Contusion of Hematoma on Intracranial bleed- cerebral rn contusion. Data reviewed: vital signs, nurses notes, lab test result(s), radiologic studies, CT scan, plain films, and as a result, I will admit patient. 19:14 Counseling: I had a detailed discussion with the patient and/or guardian regarding the rn historical points, exam findings, and any diagnostic results supporting the discharge/admit diagnosis, lab results, radiology results, the need for further work-up and treatment in the hospital. Response to treatment: the patient's symptoms have mildly improved after treatment, and as a result, I will admit patient. 19:16 Management of patient was discussed with the following: Transmission Technician: Consulted with Dr. carolyn Mckenna and discussed case, states okay to admit, request admission to hospitalist service, oxygen supplementation and pain control. He will see patient in the morning since there is no pneumothorax or hemothorax.. Care significantly affected by the following chronic conditions: Hypertension. ED course: Spoke with Dr. Delacruz, will admit for pain control and surgical consultation.. 07/19 18:19 Order name: CBC with Diff; Complete Time: 18:50 07/19 18:19 Order name: Protime (+inr); Complete Time: 18:53 07/19 18:19 Order name: Ptt, Activated; Complete Time: 18:53 07/19 18:31 Order name: BMP; Complete Time: 18:53 07/19 20:26 Order name: Urinalysis w/ reflexes [facility] 07/19 20:26 Order name: Thyroid Stimulating Hormone [facility] 07/19 20:26 Order name: Thyroid Stimulating Hormone [facility] 07/19 18:25 Order name: Chest Abd Pelvis Wo Con; Complete Time: 19:01 [facility] 07/19 18:28 Order name: Head C Spine Mpr Wo Con; Complete Time: 18:53 [facility] 07/19 20:27 Order name: Chest Pa And Lat (2 Views) [facility] 07/19 20:27 Order name: Chest Pa And Lat (2 Views) [facility] 07/19 18:19 Order name: EKG; Complete Time: 18:20 rn 07/19 18:19 Order name: Cardiac monitoring; Complete Time: 18:32 rn 07/19 18:19 Order name: O2 Sat Monitoring; Complete Time: 18:32 rn 07/19 18:19 Order name: EKG - Nurse/Tech; Complete Time: 18:55 rn 07/19 18:19 Order name: IV Start; Complete Time: 18:32 rn EC:00 Rate is 81 beats/min. Rhythm is regular. QRS [place] is Normal. VA interval is normal. QRS rn interval is normal. QT interval is normal. No Q waves. T waves are Normal. No ST changes noted. Clinical impression: Normal ECG. Interpreted by me. Reviewed by me. Administered Medications: 19:22 Drug: NS 0.9% IV 250 ml IV at calculated rate once; to be given as a bolus over 30 cm10 minutes Route: IV; Rate: calculated rate; Site: right antecubital; 19:52 Follow up: IV Status: Completed infusion; IV Intake: 250ml dd2 19:23 Drug: cloNIDine PO 0.1 mg PO once Route: PO; cm10 21:12 Follow up: Response: No adverse reaction me1 19:59 Drug: morphine IVP or IV 2 mg IVP once over 4 mins Route: IVP; Infused Over: 4 mins; me1 Site: right antecubital; 21:12 Follow up: Response: No adverse reaction; Pain is decreased me1 Disposition Summary: 07/19/24 19:18 Hospitalization Ordered Notes: Hospitalization Status: Inpatient Admission rn Provider: Falguni Delacruz rn Location: Telemetry/MedSurg (Inpatient) rn Condition: Stable rn Problem: new rn Symptoms: have improved rn Bed/Room Type: Standard rn Room Assignment: 230(07/19/24 21:14) [facility] Diagnosis - Unspecified injury of head, initial encounter rn - Multiple fractures of ribs, right side rn Forms: - Medication Reconciliation Form rn - SBAR form rn - Leadership Thank You Letter rn Signatures: Dispatcher [facility] Lucas Samayoa MD MD rn Benton, Danielle RN Gilda Monsalve RN RN [facility] Katiuska Patino RN RN md1 Lydia Molina [facility] ERWIN ALSTON RN dd2 Corrections: (The following items were deleted from the chart) 18:25 18:19 Head C Spine Cap Wo Con+CT.RAD.BRZ ordered. EDMS EDMS 21:14 19:18 carolyn cortez
[2024-07-19] MEDS ORDERED: MORPHINE 2 MG/ML SYR ONE (19:56)
--- NOTE | 2024-07-19 20:21 | P.HP ---
Certification for Inpatient Patient admitted to: Observation With expected LOS: <2 Midnights Practitioner: I am a practitioner with admitting privileges, knowledge of patient current condition, hospital course, and medical plan of care. Services: Services provided to patient in accordance with Admission requirements found in Title 42 Section 412.3 of the Code of Federal Regulations Patient History Date of Service: 07/19/24 Reason for admission: rib fracture History of Present Illness: 63-year-old female with history of hypothyroidism, hypertension, history of seizure disorder presents for fall injury. She reports that her fall was about 13 days ago. Denies postictal symptoms. And states that she had a seizure once but not recently. She was diagnosed with multiple rib fractures. General surgery was contacted. Recommended admission for evaluation and oxygen. At this time her vitals are stable. She is not rectal requiring oxygen. She does take her medications including seizure medications consistently. She denies any headache, or neck pain. She does report occasional headaches but nothing recently. Review of Systems 10-point ROS is otherwise unremarkable Respiratory: Shortness of Breath Musculoskeletal: Back Pain Physical Examination - Physical Exam General: In no apparent distress, Oriented x3 HEENT: Atraumatic, Normocephalic Respiratory: Clear to auscultation bilaterally, Normal air movement Cardiovascular: Normal pulses, Regular rate/rhythm, Normal S1 S2 Gastrointestinal: Soft and benign, Non-distended Musculoskeletal: Tenderness (right side back) Neurological: Normal speech - Studies Laboratory Data (last 24 hrs) 07/19/24 07/19/24 07/19/24 18:28 18:28 18:28 WBC 8.90 Hgb 12.2 Hct 34.6 L Plt Count 278 PT 10.9 INR 0.95 APTT 27.7 Sodium 125 L Potassium 3.7 BUN 16 Creatinine 1.12 H Glucose 105 Assessment and Plan - Problems (Diagnosis) (1) Rib fracture Current Visit: Yes Status: Acute - Plan Fall --sounds like mechanical fall --denies post ictal state, or recent seizure multiple rib fractures --surgery consult, CT head, neck done --O2, IS, prn morphine history of seizure --restart home medications htn --await med rec hypothyroidism --await med rec hld --await med rec - Advance Directives Does patient have a Living Will: No Does patient have a Durable POA for Healthcare: No
[2024-07-19] MEDS ORDERED: ACETAMINOPHEN 325 MG TABLET PO PRN (20:22)
[2024-07-19 23:08] VITALS: O2SAT 95
[2024-07-20] MEDS: HYDRALAZINE HCL 20 MG/ML VIAL IV ONE (01:52)
[2024-07-20 06:40] VITALS: BMI 27.8
--- NOTE | 2024-07-20 07:54 | RAD REPORT ---
Procedure: Chest Pa And Lat (2 Views) HISTORY: Chest pain COMPARISON: July 19, 2024 FINDINGS: The lungs appear clear of acute infiltrate. Small bilateral pleural effusions. The heart is normal size.. Battery pack with wires left chest No significant change in the appearance of the known right rib fractures. No pneumothorax seen.
[2024-07-20 08:03] LABS: Absolute Basophils 0.1 K/uL (0-0.5); Absolute Eosinophils 0.1 K/uL (0-0.5); Absolute Lymphocytes (CBC) 1.3 K/uL (0.7-4.9); Absolute Monocytes 0.7 K/uL (0.1-1.3); Absolute Neutrophil 6.5 K/uL (1.8-8.0); Basophils % 0.7 % (0-1.3); Eosinophils % 0.9 % (0-4.4); Hematocrit 34.4 % (36.0-45.0); Lymphocytes % 14.8 % (15.3-44.8); MCH 30.8 pg (27.0-35.0); MCHC 34.9 g/dL (32.0-36.0); MCV 88.3 fL (80-100); MPV 7.7 fL (7.6-11.3); Monocytes % 7.7 % (3.3-12.3); Neutrophils % 75.9 % (41.7-73.7); Platelets 309 thou/uL (152-406); RBC Red Blood Cell Count 3.89 M/uL (3.86-4.86); Red Cell Distribution Width 13.1 % (12.1-15.2)
[2024-07-20 08:14] LABS: Albumin 1.7 g/dL (3.4-5.0); Albumin/Globulin Ratio 0.5 (1.1-1.8); Anion Gap 10.6 mEq/L (5.0-15.0); Bilirubin Total 0.3 mg/dL (0.2-1.0); Globulin 3.6 g/dL (2.3-3.5); Magnesium 1.9 mg/dL (1.6-2.4); Potassium 3.6 mEq/L (3.5-5.1); Protein, Total 5.3 g/dL (6.4-8.2)
[2024-07-20 08:50] VITALS: BP 158/64; TEMP 98.2
[2024-07-20] MEDS: lamoTRIgine 150 MG TAB PO SCH (09:00)
[2024-07-20] MEDS: ENOXAPARIN 40 MG/0.4 ML SQ SCH (09:37)
[2024-07-20] MEDS: PRIMIDONE 50 MG TAB PO SCH (09:38)
[2024-07-20] MEDS: MEMANTINE HCL 10 MG TABLET PO SCH (09:39)
[2024-07-20] MEDS: METOPROLOL XL 25 MG TAB PO SCH (09:39)
[2024-07-20] MEDS: LIOTHYRONINE SOD 5 MCG TAB PO SCH (09:39)
[2024-07-20] MEDS: VALSARTAN 80 MG TAB PO SCH (09:39)
[2024-07-20] MEDS: MONTELUKAST 10 MG TAB PO SCH (09:40)
[2024-07-20] MEDS: FLUOXETINE 20 MG CAP PO SCH (09:40)
--- NOTE | 2024-07-20 11:18 | EKG ---
Test Date: 2024-07-19 Test Time: 18:57:39 Meteorology Teacher: MIGUE MEASUREMENT RESULTS: Intervals: Rate: 81 LA: 130 QRSD: 84 QT: 392 QTc: 455 [place]: P: 36 LA: 130 QRS: 66 T: 64 INTERPRETIVE STATEMENTS: Normal sinus rhythm Normal ECG Compared to ECG 10/28/2020 23:09:01 No significant changes Electronically Signed On 07-20-24 11:16:32 CDT by Cristian Brown
--- NOTE | 2024-07-20 12:14 | P.DS ---
Admission Date: 07/19/24 Discharge Date: 07/20/24 Disposition: ROUTINE DISCHARGE Discharge Condition: GOOD Reason for Admission: rib fracture Consultations: General surgery - Dr. Mckenna Brief History of Present Illness: 63yo F, PMH: hypothyroidism, hypertension, history of seizure disorder Patient presents for fall injury. She reports that her fall was about 13 days ago. Denies postictal symptoms. And states that she had a seizure once but not recently. She was diagnosed with multiple rib fractures. General surgery was contacted. Recommended admission for evaluation and oxygen. At this time her vitals are stable. She is not rectal requiring oxygen. She does take her medications including seizure medications consistently. She denies any headache, or neck pain. She does report occasional headaches but nothing recently. Hospital Course: Problem List: Right 7th-11th rib fractures post fall Generalized Weakness, fatigue Hyponatremia likely secondary to Seizure disorder Hypothyroidism Hypertension Hyperlipidemia Anxiety Physician discharge instructions: Patient presented to the ED with shortness of breath associated with lower back/chest discomfort after sustaining a fall and was found to have multiple right-sided rib fractures 7th-11th. CT chest/abd/pelvis on admission noted right 7th through 11th rib fractures which are at most mildly displaced. The right 10th rib fracture is segmental. No pneumothorax seen or evidence of significant trauma seen on imaging. CT head was negative for any acute findings. No traumatic findings. On arrival she reported dealing with some mild back/lower chest pain around fractured ribs site, associated with some shortness of breath. Patient was evaluated by Dr. Mckenna, who recommending medical management with pain control and sling as needed. No findings to warrant surgical intervention. Patient was monitored overnight, breathing comfortably on room air, pain tolerable with oral medications, and was deemed stable for discharge. She was ambulating around the floor on day of discharge. She denied any dizziness of worsening shortness of breath with ambulation. Repeat CXR on day of discharge was clear of infiltrate. Follow up with PCP within the next week for further management. Her sodium was noted to be low on admission (125), improved to 130 the following day without intervention or IV fluids. Family in the room reports shes been told patient has had low sodium before and due to polydipsia - describing patient drinks up 10 or more bottles of water/day at times. Patient has been advised to cut back on her water intake. Advised patient and family to limit oral fluid intake to reduce recurrent episodes, reduce risk factors - as low sodium can lower threshold for seizures. Incidentally, her serum albumin was also noted to be quite low at 1.7 On further discussion - patient has lost 30lbs in the last 2-3 months, and was experiencing significant decrease in appetite secondary to her seizure medication. This has improved slightly after a recent change in her medications. Discussed this may affect her medications and can lead to side effects. Recommend to follow up with her Neurologist. Recommend supplemental nutritional source such as ensure or boost. Medications: [place] 5/325 every 8 hours as needed for breakthrough pain take 600 mg ibuprofen every 8 hours for 3 days, then continue as needed for pain take 500 mg extra strength tylenol every 8 hours for 3 days, then continue as needed for pain Avoid taking ibuprofen and tylenol together. Stagger medications every 4 hours. Follow up: PCP 3-5 days Neurology in a few weeks Please call to schedule / confirm appointments Physical Exam: GEN: Alert, oriented, NAD CV: Regular rate and rhythm, no edema Pulm: Nonlabored respirations on room air, clear bilaterally ABD: soft, nontender, nondistended Integumentary: No rashes Neuro: Normal speech, normal affect Vital Signs/Physical Exam: Temp Pulse Resp BP Pulse Ox 98.2 F 79 16 158/64 H 92 07/20/24 08:00 07/20/24 08:00 07/20/24 08:00 07/20/24 08:00 07/20/24 08:00 Laboratory Data at Discharge: WBC 8.60 thou/uL (4.3-10.9) 07/20/24 07:44 Hgb 12.0 g/dL (12.0-15.0) 07/20/24 07:44 Hct 34.4 % (36.0-45.0) L 07/20/24 07:44 Plt Count 309 thou/uL (152-406) 07/20/24 07:44 PT 10.9 SECONDS (10-13.0) 07/19/24 18:28 INR 0.95 07/19/24 18:28 APTT 27.7 SECONDS (27.2-37.4) 07/19/24 18:28 Sodium 130 mEq/L (136-145) L D 07/20/24 07:44 Potassium 3.6 mEq/L (3.5-5.1) 07/20/24 07:44 BUN 15 mg/dL (7-18) 07/20/24 07:44 Creatinine 0.97 mg/dL (0.55-1.02) 07/20/24 07:44 Glucose 92 mg/dL (74-106) 07/20/24 07:44 Magnesium 1.9 mg/dL (1.6-2.4) 07/20/24 07:44 Total Bilirubin 0.3 mg/dL (0.2-1.0) 07/20/24 07:44 AST 14 U/L (15-37) L 07/20/24 07:44 ALT 18 U/L (13-56) 07/20/24 07:44 Alkaline Phosphatase 172 U/L (45-117) H 07/20/24 07:44 Home Medications: Donepezil HCl 1 tab BEDTIME 07/19/24 Atorvastatin Calcium 40 mg PO BEDTIME 07/20/24 Eslicarbazepine Acetate [Aptiom] 1 tab PO DAILY 07/20/24 Fluoxetine HCl [Prozac] 40 mg PO DAILY 07/20/24 Hydrocodone 5/APAP 325 [[place] 5/325*] 1 tab PO Q8H PRN #20 tab 07/20/24 Lamotrigine [Lamictal] 150 mg PO BID* 07/20/24 Levothyroxine [Synthroid*] 112 mcg PO [id number] 07/20/24 Liothyronine Sodium [Cytomel] 5 mcg PO DAILY 07/20/24 Memantine HCl [Namenda*] 1 tab PO BID* 07/20/24 Metoprolol Succinate [Toprol Xl*] 25 mg PO DAILY 07/20/24 Montelukast Sodium 10 mg PO DAILY 07/20/24 Primidone 1 tab PO BID 07/20/24 Valsartan 80 mg PO DAILY 07/20/24 clonazePAM [Clonazepam] 1 mg PO DAILY 07/20/24 New Medications: Hydrocodone 5/APAP 325 [[place] 5/325*] 1 tab PO Q8H PRN #20 tab PRN Reason: Pain Scale 8-10 (Severe) Physician Discharge Instructions: Physician discharge instructions: Patient presented to the ED with shortness of breath associated with lower back/chest discomfort after sustaining a fall and was found to have multiple right-sided rib fractures 7th-11th. CT chest/abd/pelvis on admission noted right 7th through 11th rib fractures which are at most mildly displaced. The right 10th rib fracture is segmental. No pneumothorax seen or evidence of significant trauma seen on imaging. CT head was negative for any acute findings. No traumatic findings. On arrival she reported dealing with some mild back/lower chest pain around fractured ribs site, associated with some shortness of breath. Patient was evaluated by Dr. Mckenna, who recommending medical management with pain control and sling as needed. No findings to warrant surgical intervention. Patient was monitored overnight, breathing comfortably on room air, pain tolerable with oral medications, and was deemed stable for discharge. She was ambulating around the floor on day of discharge. She denied any dizziness of worsening shortness of breath with ambulation. Repeat CXR on day of discharge was clear of infiltrate. Follow up with PCP within the next week for further management. Her sodium was noted to be low on admission (125), improved to 130 the following day without intervention or IV fluids. Family in the room reports shes been told patient has had low sodium before and due to polydipsia - describing patient drinks up 10 or more bottles of water/day at times. Patient has been advised to cut back on her water intake. Advised patient and family to limit oral fluid intake to reduce recurrent episodes, reduce risk factors - as low sodium can lower threshold for seizures. Incidentally, her serum albumin was also noted to be quite low at 1.7 On further discussion - patient has lost 30lbs in the last 2-3 months, and was experiencing significant decrease in appetite secondary to her seizure medication. This has improved slightly after a recent change in her medications. Discussed this may affect her medications and can lead to side effects. Recommend to follow up with her Neurologist. Recommend supplemental nutritional source such as ensure or boost. Medications: [place] 5/325 every 8 hours as needed for breakthrough pain take 600 mg ibuprofen every 8 hours for 3 days, then continue as needed for pain take 500 mg extra strength tylenol every 8 hours for 3 days, then continue as needed for pain Follow up: PCP 3-5 days Neurology in a few weeks Please call to schedule / confirm appointments Followup: OOT,OOT [Primary Care Provider] - Time spent managing pt's care (in minutes): 45
[2024-07-20] MEDS: HYDROCODONE/APAP 5/325 MG TAB PO PRN (12:39)
[2024-07-20] MEDS ORDERED: ATORVASTATIN 40 MG TAB PO SCH (21:00)
[2024-07-21] MEDS ORDERED: LEVOTHYROXINE SOD 0.112 MG TAB PO SCH (06:00)
== END 2024-07-20 13:52 | disposition home or self-care (01) ==
LOC: ER 17:53 → ERHOLD 20:22 → 2ND 21:50
PROVIDERS: ADMIT Internal Medicine; ATTEND Hospitalist
DX: S22.41XA Multiple fractures of ribs, right side, initial encounter for closed fracture (principal); S09.90XA Unspecified injury of head, initial encounter; F41.9 Anxiety disorder, unspecified; E03.9 Hypothyroidism, unspecified; I10 Essential (primary) hypertension; R56.9 Unspecified convulsions; E78.5 Hyperlipidemia, unspecified; R53.1 Weakness; R53.83 Other fatigue; R06.02 Shortness of breath; R07.89 Other chest pain; M54.9 Dorsalgia, unspecified; W17.89XA Other fall from one level to another, initial encounter; Y93.9 Activity, unspecified; Y92.9 Unspecified place or not applicable; Z88.0 Allergy status to penicillin
CPT/HCPCS: 96365; 93005; 85025 ×2; 80048; 36415; 83735; 85610; 85730; 84443; 80053; 70450; 71250; 72125; 74176; 71046; 96375; 99285; J0360; J1650; J2270; J7050; G0378 ×4

== ENCOUNTER 2024-08-30 00:53 | Inpatient (IN) | payer OTHER ==
--- OUTSIDE RECORDS SUMMARY | 2024-08-30 00:57 | XMS REPORT | Continuity of Care Document ---
Author Name Unknown Address [address] [facility] [address] [place] [address] [facility] [place] Address [address] [facility] [address] [place] [address] Care Team Providers Care Layboy Tender Name Role Phone Austen Miller NP Primary Care Physician [phone] No, PCP Attending Clinician Unavailable Doctor Unassigned, [place] Attending Clinician U BRADEN Gurrola Attending Clinician Unavailable BRADEN HUERTAS Attending Clinician Unavailable MIKE CLEMENTS Attending Clinician Unavailab Mike Ash Attending Clinician EDER CHARLES Attending Clinician Unavailable Eder Charles MD Attending Clinician [phone] ISMAEL CAROLINA Attending Clinician Unavailable Ismael Carolina MD Attending Clinician [phone] Alex, [facility] Attending Clinician Unavailabl e RADIOLOGY Attending Clinician Unavailable Radiology Attending Clinician Unavailable Doctor Unassigned, [place] Attending Clinician U MIKE Ann Admitting Clinician Unavailab EDER Iyer Admitting Clinician Unavailable ISMAEL CAROLINA Admitting Clinician Unavailable Ismael Carolina MD Admitting Clinician [phone] AUSTEN MILLER Admitting Clinician Unavailab marilyn Payers Payer Name Policy Type Policy Number Effective Date Expirati on Date Source Problems Condition Name Condition Details Condition Category Status Onset Date Resolution Date Last Treatment Date Treating Clinician Comments Source Alzheimer' s disease Alzheimer' s disease, unspecifie d Problem [facility] Mild major depression , single episode Major depressive disorder, single episode, mild Problem [facility] Anxiety disorder Anxiety disorder, unspecifie d Problem [facility] Electroenc ephalogram abnormal Abnormal electroenc ephalogram [EEG] Problem [facility] Amnesia Other amnesia Problem [facility] Visual Disturbanc e Other visual disturbanc es Problem [facility] 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, unspecifie d Problem [facility] Multiple sclerosis Multiple sclerosis Problem [facility] [id number] Status post placement of VNS (vagus nerve stimulatio n) device Problem [facility] Occlusion and stenosis of multiple and bilateral cerebral arteries Occlusion and stenosis of bilateral carotid arteries Problem [facility] Chronic pain syndrome Chronic pain syndrome Problem [facility] Presence of brain neurostimu lator device Presence of brain neurostimu lator device Problem [facility] Insomnia Insomnia due to medical condition Problem [facility] [id number] Essential hypertensi on Problem [facility] Anxiety Anxiety Problem [facility] Paranoia Paranoia Problem [facility] Hyperlipid aemia HLD (hyperlipi demia) Problem [facility] Dizziness Dizziness Problem Luciana r [facility] Epilepsy Epilepsy, unspecifie d, not intractabl e, without status epilepticu s Problem [facility] Allergies, Adverse Reactions, Alerts Allergy Name Allergy Type Status Severity Reaction(s) Onset Date Inactive Date Treating Clinician Comments Source PENICILL IN DRUG INGREDI Active ITCHING 07-17 00:00: 00 [facility] Penicill in Propensi ty to adverse reaction s Active Swelling 07-17 00:00: 00 [facility] NO KNOWN ALLERGIE S Drug Class Active [facility] Substanc e with penicill in structur e and antibact erial mechanis m of action (substan ce) Substanc e with penicill in structur e and antibact erial mechanis m of action (substan ce) Active Unknown [facility] Social History Social Habit Start Date Stop Date Quantity Comments Source Sexual orientation U [facility] History of Tobacco Use [facility] Sex Assigned At [facility] Tobacco use and exposure 2023-07-31 00:00:00 2023-07-31 00:00:00 Smokeless tobacco non-user [facility] History of Social function 2023-07-31 00:00:00 2023-07-31 00:00:00 [facility] Smoking Status Start Date Stop Date Source Tobacco smoking consumption unknown [facility] Never Smoker [facility] Medications Ordered Medication Name Filled [...] 08-27 16:15: 00 08-27 16:09 :00 No [id number] .2mL/kg 0.2 mL/kg, Intravenou s, ONCE, 1 dose, On Sat08/28/23 at 1115, Routine [facility] FLUoxetine 20 mg capsule 07-31 14:00: 00 07-31 18:22 :28 No 20mg Take 1 capsule by mouth daily. [facility] montelukast 10 mg tablet 07-31 14:00: 00 07-31 18:22 :28 No 10mg Take 1 tablet by mouth daily. [facility] clonazePAM 1 mg tablet 07-31 14:00: 00 07-31 18:22 :28 No 1mg Take 1 tablet by mouth daily. [facility] metoprolol succinate XL 25 mg 24 hr tablet 07-31 14:00: 00 07-31 18:22 :28 No 25mg Take 1 tablet by mouth daily. [facility] primidone 50 mg tablet 07-31 14:00: 00 07-31 18:22 :28 No 50mg Take 1 tablet by mouth daily. [facility] FLUoxetine 20 mg capsule 07-31 11:22: 25 Yes 20mg Take 1 capsule by mouth daily. [facility] montelukast 10 mg tablet 07-31 11:22: 25 Yes 10mg Take 1 tablet by mouth daily. [facility] eslicarbaze pine (APTIOM) 800 mg Tab 07-31 11:22: 25 Yes Take by mouth daily. [facility] clonazePAM 1 mg tablet 07-31 11:22: 25 Yes 1mg Take 1 tablet by mouth daily. [facility] Levothyroxi ne 112 mcg capsule 07-31 11:22: 25 Yes Take by mouth daily. [facility] atorvastati n 40 mg tablet 07-31 11:22: 25 Yes 40mg Take 1 tablet by mouth at bedtime. [facility] metoprolol succinate XL 25 mg 24 hr tablet 07-31 11:22: 25 Yes 25mg Take 1 tablet by mouth daily. [facility] primidone 50 mg tablet 07-31 11:22: 25 Yes 50mg Take 1 tablet by mouth daily. [facility] levothyroxi ne (SYNTHROID) tablet 112 mcg 07-31 11:00: 00 07-31 18:22 :28 No 112ug 112 mcg, Oral, QAM-0600, First dose on Sat08/01/23 at 0600, Until Discontinu ed [facility] water for injection, sterile injection 10 mL 07-31 08:00: 00 07-31 07:39 :00 No 10mL 10 mL, Intravenou s, ONCE, 1 dose, On Sat08/01/23 at 0300, Routine [facility] donepeziL (ARICEPT) tablet 10 mg 07-31 02:00: 00 07-31 18:22 :28 No 10mg 10 mg, Oral, QHS, First dose on Sat07/31/23 at 2100, Until Discontinu ed, Routine [facility] atorvastati n 40 mg tablet 07-31 02:00: 00 07-31 18:22 :28 No 40mg Take 1 tablet by mouth at bedtime. [facility] sennosides (SENOKOT) tablet 8.6 mg 07-31 01:00: 00 07-31 18:22 :27 No 8.6mg 8.6 mg, Oral, BID, First dose on Sat07/31/23 at 1999, Until Discontinu ed, Routine [facility] famotidine (PEPCID AC) tablet 20 mg 07-31 01:00: 00 07-31 18:22 :27 No 20mg 20 mg, Oral, BID, First dose on Sat07/31/23 at 1999, Until Discontinu ed, Routine [facility] docusate (COLACE) capsule 100 mg 07-31 01:00: 00 07-31 18:22 :27 No 100mg 100 mg, Oral, BID, First dose on Sat07/31/23 at 1999, Until Discontinu ed, Routine [facility] sodium chloride 1,000 mg tablet 07-31 00:00: 00 08-31 04:59 :00 No [id number] 1g Take 1 tablet by mouth 3 (three) times daily with meals for 30 days. [facility] docusate 100 mg capsule 07-31 00:00: 00 08-15 04:59 :00 No [id number] 100mg Take 1 capsule by mouth daily for 14 days. Take with a full glass of water. [facility] methocarbam oL 500 mg tablet 07-31 00:00: 00 08-15 04:59 :00 No [id number] 500mg Take 1 tablet by mouth 4 (four) times daily for 14 days. Indication s: a uncontroll ed muscle contractio n with pain [facility] HYDROcodone -acetaminop hen 5-325 mg tablet 07-31 00:00: 00 08-08 04:59 :00 No [id number] 1{tbl} Take 1 tablet by mouth every 4 (four) hours as needed for Pain (scale 4-6) or Pain (scale 7-10) for up to 7 days. Indication s: acute pain [facility] ceFAZolin (ANCEF) injection 1,000 mg 07-30 23:00: 00 07-31 13:29 :00 No 1000mg 1,000 mg, Intravenou s, Q8H ABX, 3 doses, First dose on Sat07/31/23 at 1800, Last dose on Sat08/01/23 at 1000
Re ason for Anti-Infec tive: Surgical Prophylaxi s
Surgi lily Prophylaxi s: Neurosurge ry
Dura tion of therapy: within 24 hours of surgery [facility] NaCl 0.9% (NS) IV infusion 1,000 mL 07-30 18:15: 00 07-31 18:22 :27 No 1000mL at 75 mL/hr, IV Infusion, CONTINUOUS , Starting on Sat07/31/23 at 1315, Until Sat08/01/23 at 1322, Routine [facility] morpHINE (2 mg/mL) injection 2 mg 07-30 18:03: 26 07-31 18:22 :27 No 2mg 2 mg, Slow IV Push, Q3HPRN, Starting on Sat07/31/23 at 1303, Until Carol 08/01/23 at 1322, Routine, Pain (scale 7-10) [facility] oxyCODONE immediate release tablet 5 mg 07-30 18:03: 13 07-31 18:22 :27 No 5mg 5 mg, Oral, Q4HPRN, Starting on Sat07/31/23 at 1303, Until Carol 08/01/23 at 1322, Routine, Pain (scale 4-6)
Fa culty member approving Restricted medication : BRADEN HUERTAS [facility] acetaminoph en (TYLENOL) tablet 325 mg 07-30 18:03: 11 07-31 18:22 :27 No 325mg 325 mg, Oral, Q6HPRN, Starting on Sat07/31/23 at 1303, Until Carol 08/01/23 at 1322, Routine, Pain (scale 1-3) [facility] bisacodyL (DULCOLAX) suppository 10 mg 07-30 18:01: 07-31 18:22 :28 No 10mg 10 mg, Rectal, QHSPRN, Starting on Sat07/31/23 at 1301, Until Carol 08/01/23 at 1322, Routine, Constipati on [facility] NaCl 0.9% (NS) injection 5 mL 07-30 18:: 07-31 18:22 :28 No 5mL 5 mL, Slow IV Push, PRN - SEE INSTRUCTIO NS, Starting on Sat07/31/23 at 1301, Until Carol 08/01/23 at 1322, 10 mL [facility] lactated ringers IV infusion 1,000 mL 07-30 18:00: 00 07-31 10:40 :22 No 1000mL at 75 mL/hr, 1,000 mL, IV Infusion, CONTINUOUS , Starting on Sat07/31/23 at 1300, Until Carol 08/01/23 at 0540, Routine, PACU [facility] HYDROcodone -acetaminop hen (NORCO 5) 5-325 mg tablet 1 tablet 07-30 18:00: 00 07-30 18:16 :00 No 1{tbl} 1 tablet, Oral, ONCE, 1 dose, On Sat07/31/23 at 1300, Routine, PACU [facility] FENTanyl PF (SUBLIMAZE (PF)) injection 25 mcg 07-30 17:59: 12 07-30 19:27 :00 No 25ug 25 mcg, Slow IV Push, Q5MIN PRN, 4 doses, Starting on Sat07/31/23 at 1259, Until Discontinu ed, Routine, Pain (scale 4-6), PACU [facility] vancomycin (VANCOCIN) 1 g in sodium chloride 0.9 % irrigation 07-30 17:08: 00 07-30 18:11 :58 No PRN, Starting on Sat07/31/23 at 1208, Until Sat07/31/23 at 1311, 1,000 mL, Intra-op [facility] lidocaine-e pinephrine (XYLOCAINE WITH EPINEPHRINE ) 0.5 %-1:200,000 injection 07-30 14:30: 00 07-30 18:11 :58 No PRN, Starting on Sat07/31/23 at 0930, Until Sat07/31/23 at 1311, Routine, Intra-op [facility] Aptiom 800 MG Aptiom 800 MG [...] S ource height 2024-03-30 09:30:00 63 [in_i] [facility] weight-kg 2024-03-30 09:30:00 70.85 kg [facility] bmi 2024-03-30 09:30:00 27.67 kg/m2 Luciana r [facility] respiratory rate 2024-03-30 09:30:00 16 /min [facility] heart rate 2024-03-30 09:30:00 63 /min [facility] blood pressure systolic 2024-03-30 09:30:00 163 mm[Hg] [facility] blood pressure diastolic 2024-03-30 09:30:00 93 mm[Hg] [facility] height 2023-11-27 09:30:00 63 [in_i] [facility] weight-kg 2023-11-27 09:30:00 73.03 kg [facility] bmi 2023-11-27 09:30:00 28.52 kg/m2 Luciana r [facility] heart rate 2023-11-27 09:30:00 58 /min [facility] blood pressure systolic 2023-11-27 09:30:00 198 mm[Hg] [facility] blood [facility] diastolic 2023-11-27 09:30:00 101 mm[Hg] [facility] Body height 2023-08-20 16:03:00 152.4 cm [facility] Body weight 2023-08-20 16:03:00 72.576 kg [facility] BMI 2023-08-20 16:03:00 31.25 kg/m2 [facility] Systolic blood pressure 2023-08-01 12:56:00 108 mm[Hg] [facility] Diastolic blood pressure 2023-08-01 12:56:00 60 mm[Hg] [facility] Heart rate 2023-08-01 12:56:00 55 /min [facility] Body temperature 2023-08-01 12:56:00 36.72 Rebecca [facility] Respiratory rate 2023-08-01 12:56:00 18 /min [facility] Oxygen saturation in Arterial blood by Pulse oximetry 2023-08-01 12:56:00 96 /min [facility] Body height 2023-07-31 11:40:00 157.5 cm [facility] Body weight 2023-07-31 11:40:00 71.7 kg [facility] BMI 2023-07-31 11:40:00 28.91 kg/m2 [facility] Systolic blood pressure 2023-07-31 12:15:00 148 mm[Hg] [facility] Diastolic blood pressure 2023-07-31 12:15:00 60 mm[Hg] [facility] Heart rate 2023-07-31 11:40:00 61 /min [facility] Body temperature 2023-07-31 11:40:00 36.44 Rebecca [facility] Respiratory rate 2023-07-31 11:40:00 18 /min [facility] Body height 2023-07-31 11:40:00 157.5 cm [facility] Body weight 2023-07-31 11:40:00 71.7 kg [facility] BMI 2023-07-31 11:40:00 28.91 kg/m2 [facility] Oxygen saturation in Arterial blood by Pulse oximetry 2023-07-31 11:40:00 97 /min [facility] Systolic blood pressure 2023-07-18 20:22:00 136 mm[Hg] [facility] Diastolic blood pressure 2023-07-18 20:22:00 82 mm[Hg] [facility] Heart rate 2023-07-18 20:22:00 62 /min [facility] Body height 2023-07-18 20:22:00 154.9 cm [facility] Body weight 2023-07-18 20:22:00 70.761 kg [facility] BMI 2023-07-18 20:22:00 29.48 kg/m2 [facility] Procedures Procedure Date / Time Performed Performing Clinician Source MR BRAIN W WO CONTRAST 2023-08-28 16:11:00 Sugar Clements [facility] XR CHEST 2 VW 2023-08-14 16:06:09 Eder Charles [facility] BASIC METABOLIC PANEL (NA, K, CL, CO2, GLUCOSE, BUN, CREATININE, CA) 2023-08-01 10:21:00 Andressa Mai [facility] CBC WITH DIFF 2023-08-01 10:21:00 Lilliana Mai [facility] BASIC METABOLIC PANEL (NA, K, CL, CO2, GLUCOSE, BUN, CREATININE, CA) 2023-08-01 10:21:00 Andressa Mai [facility] CBC WITH DIFF 2023-08-01 10:21:00 Lilliana Mai [facility] VAGAL NERVE STIMULATOR INSERTION 2023-07-31 13:46:00 Day Braden [facility] VAGAL NERVE STIMULATOR INSERTION 2023-07-31 13:46:00 Day, [facility] VAGAL NERVE STIMULATOR INSERTION 2023-07-31 13:46:00 Day, Braden [facility] VAGAL NERVE STIMULATOR INSERTION 2023-07-31 13:46:00 Day, [facility] VAGAL NERVE STIMULATOR INSERTION 2023-07-31 13:46:00 Day, [facility] VAGAL NERVE STIMULATOR INSERTION 2023-07-31 13:46:00 Day [facility] ABORH CONFIRMATION (LAB ONLY) 2023-07-31 12:58:00 Day [facility] ABORH CONFIRMATION (LAB ONLY) 2023-07-31 12:58:00 Braden Huertas [facility] HB ABO GROUPING 2023-07-31 12:10:00 [facility] 2023-07-31 12:10:00 [facility]ST 1 VW 2023-07-25 15:20:00 Mike Clements [facility] REFERRAL- REQUEST/RESPONSE 2023-07-16 15:46:28 Doctor Unassigned, Goree [facility] XR KUB 2021-07-12 20:31:41 Austen Miller [facility] XR HIPS 2 VW RIGHT 2021-07-12 20:31:41 Austen Miller [facility] ASSIGNMENT OF BENEFITS 2021-07-12 20:16:30 Docto r Unassigned, Goree [facility] Encounters Start Date/Time End Date/Time Encounter Type Admission Type Attending Clinicians Care Facility Care Department Encounter ID Source 2024-03-31 08:35:01 Outpatient No, PCP [facility] [id number] [facility] 2023-11-27 09:06:01 Outpatient No, PCP [facility] [id number] [facility] 2024-04-06 00:00:00 2024-05-09 18:20:12 Patient Secure Msg Doctor Unassigned, [place]e Doctor Unassigned, Goree [facility] 1..840.114 350.1.13.10 4.2.7.2.686 [id number] [facility] 2024-04-20 00:00:00 2024-04-20 00:00:00 (TEL) CLS CLS [id number] [facility] 2024-04-01 00:00:00 2024-04-01 00:00:00 (TEL) CLS CLS [id number] [facility] 2024-03-30 00:00:00 2024-03-30 00:00:00 (TEL) CLS CLS [id number] Arianna bullard 2024-03-30 00:00:00 2024-03-30 00:00:00 Office Visit- Est Pt.- Level 5 CLS CLS [id number] Arianna bullard 2023-11-27 00:00:00 2023-11-27 00:00:00 Office Visit- Est Pt.- Level 4 CLS CLS [id number] Arianna bullard 2023-10-29 11:00:00 2023-10-29 11:00:00 Outpatient BRADEN KEY [facility] [id number] [facility] 2023-10-17 13:00:00 2023-10-17 13:00:00 Outpatient BRADEN KEY [facility] [id number] [facility] 2023-08-28 09:04:28 2023-08-28 23:59:00 Outpatient MIKE POWELL [facility] [id number] [facility] 2023-08-28 09:04:28 2023-08-28 23:59:00 Hospital Encounter Mike Clements [facility] 1..840.114 350.1.13.10 4.2.7.2.686 [id number] [facility] 2023-08-20 11:15:00 2023-08-20 12:45:50 Outpatient R BRADEN HUERTAS [facility] [id number] [facility] 2023-08-20 11:15:00 2023-08-20 12:45:50 Office Visit Day [facility] 1.2840.114 350.1.13.10 4.2.7.2.686 [id number] [facility] 2023-08-14 10:37:36 2023-08-14 23:59:00 Outpatient R EDER CHARLES [facility] [id number] [facility] 2023-08-14 10:30:00 2023-08-14 23:59:00 Hospital Encounter Eder Charles [facility] 1.2840.114 350.1.13.10 4.2.7.2.686 [id number] [facility] 2023-07-31 06:25:00 2023-08-01 11:22:00 Outpatient R WAN ISMAEL [facility] [id number] [facility] 2023-07-31 06:25:00 2023-08-01 11:22:00 Hospital Encounter Braden Huertas [facility] ([facility]) 1.2840.114 350.1.13.10 4.2.7.2.686 [id number] [facility] 2023-07-31 08:38:00 2023-07-31 10:21:00 Surgery Day [facility] ([facility]) 1.2840.114 350.1.13.10 4.2.7.2.686 [id number] [facility] 2023-07-25 09:52:32 2023-07-25 23:59:00 Outpatient R MIKE CLEMENTS [facility] [id number] [facility] 2023-07-25 09:52:32 2023-07-25 23:59:00 Hospital Encounter Mike Clements [facility] 1.20.114 350.1.13.10 4.2.7.2.686 [id number] [facility] 2023-07-25 11:00:00 2023-07-25 11:15:00 Crop Pest Control Specialist Visit Draw, [facility] Mike Clements [facility] 1.2.114 350.1.13.10 4.2.7.2.686 [id number] [facility] 2023-07-18 14:45:00 2023-07-18 16:14:50 Outpatient R BRADEN HUERTAS [facility] [id number] [facility] 2023-07-18 14:45:00 2023-07-18 16:14:50 Office Visit Braden Huertas [facility] 1.20.114 350.1.13.10 4.2.7.2.686 [id number] [facility] 2021-07-12 15:18:36 2021-07-12 23:59:00 Outpatient R RADIOLOGY [facility] [id number] [facility] 2021-07-12 15:15:00 2021-07-12 23:59:00 Hospital Encounter Radiology [facility] 1.20.114 350.1.13.10 4.2.7.2.686 [id number] [facility] 2021-07-12 00:00:00 2021-07-12 00:00:00 Orders Only Doctor Unassigned, Goree [facility] 1.2840.114 350.1.13.10 4.2.7.2.686 [id number] [facility] Results Test Description Test Time Test Comments Results Result Comments Source MR BRAIN W WO CONTRAST 8 16:58:27 MR BRAIN W WO CONTRAST COMPARISON: None. HISTORY: epilepsy 3 Nadya only; epilepsy protocol; DTI with 64 directions TECHNIQUE: Multisequence multiplanar MR images of the brain obtainedwithout and with IV contrast.Quantitative volumetry of the brain was performed using [employer], [place], [place]) software package. The NeuroQuantanalysis was based on [...] T2 hyperintensity with peripheral T2 hypointense and F1ehpgzlllkkea signal with associated susceptibility signal loss in [...] were within 2 SD of the mean. [facility] XR CHEST 2 VW 2023-07-23 4 16:18:58 [...] the left anterior second and third ribs. [facility] Only[facility]2023-07-31 13:10:00* Test Item Value Reference Range Interpretation Comme nts ABO & RH (test code = 20) B Positive [facility] Only[facility]2023-07-31 13:10:00* Test Item Value Reference Range Interpretation Comme nts ABO & RH (test code = 20) B [facility] - [facility]CE [id number] 12:20:00* Test Item Value Reference Range Interpretation Comme nts ABO & RH (test code = 20) B POSITIVE IAT (test code = 1185) Negative [facility] [id number] 12:20:00* Test Item Value Reference Range Interpretation Comme nts ABO & RH (test code = 20) B POSITIVE IAT (test code = 1185) Negative [facility] - [facility]CE [id number] 12:20:00* Test Item Value Reference Range Interpretation Comme nts ABO & RH (test code = 20) B POSITIVE IAT (test code = 1185) Negative [facility] 1 [id number] 18:25:24EXAM: XR CHEST 1 VW COMPARISON: None [...] projected over the left lower neck, nonspecific. Inspectionrecommended.[facility]/[id number] 15:46:28Ordered by an unspecified provider.[facility]/[id number] 15:46:28Ordered by an unspecified provider.[facility] Consult Notes Date/Time Note Provider Source 2023-08-01 [...] Left 07/31/2023 Surgeon: Braden Huertas MD; Location: [facility] OR LOCATION Prior Living Situation: in a [...] before and after session COMMUNICATION Primary Language: Y[place] , pt able to understand/speak some [place], however daughter available to translate Yakut when needed. Able to Verbalize needs: Yes [...] 12 min Jacey Acevedo PT, DPT T [facility] - Health History and Physical Notes Date/Time [...] Navarro MD Neurosurgery For inquiries please page [phone] Neurosurgery Clinic Note 07/18/2023 Chief Complaint: VNS [...] signing the medical record. Braden Huertas MD [employer] [facility] Department of Neurosurgery Associated attestation - Braden [...] She agrees to proceed. Braden Huertas MD [facility] Neurosurgery [facility] - Health Notes Date/Time Note Provider Source 2023-08-01 11:00:00 Discharge education provided with discharge instruction explained and copy provided to the patient and her daughter. PIV to right hand removed, catheter tip intact, gauze applied and no bleeding noted. Patient left with her daughter along with her personal belongings. [facility] 2023-08-01 10:25:00 Occupational therapy reported that patient had an episode of absence seizure during the therapy. Patient is awake and alert upon assessment during this time. Respiration even and unlabored. [facility] 2023-08-01 07:49:29 Problem: Discharge Planning Goal: Adequate for discharge Outcome: Progressing as expected Goal: Effective communication Outcome: Progressing as expected Problem: Pain Goal: Control of pain at or below patient's documented comfort goal Outcome: Progressing as expected Goal: Reduction in pain sensation Outcome: Progressing as expected Problem: Falls, Risk of Goal: Absence of falls Outcome: Progressing as expected [facility] 2023-07-31 23:13:10 Problem: Discharge Planning Goal: Adequate for discharge Outcome: Progressing as expected Problem: Pain Goal: Control of pain at or below patient's documented comfort goal Outcome: Progressing as expected Problem: Falls, Risk of Goal: Absence of falls Outcome: Progressing as expected [facility] Deidre Barry RN [facility] 2023-07-31 17:50:00 Received patient from PACU. AOx4. Left neck incision and left upper chest incision with derma frausto, no bleeding noted. Daughter at bedside. Call light in reach.Respiration even and unlabored without SOB. 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 Braden Huertas MD [employer] [facility] Department of Neurosurgery 07/31/2023 T [facility] 2023-07-25 11:00:00 Images from the original note were not included. Venipuncture collection performed by clean technique on the left anticubitus. Total of 1 attempts were made. Slight pressure and a bandage/dressing were applied to the site(s). The patient experienced no complications. The following specimens were processed according to instructions and sent to [facility] laboratories per lab order on 07/25/2023: LT BLUE 1 SST 1 RED LAV 1 PPT DK GREEN (LiHep) DK GREEN (SodH) BUCKLEY DK BLUE (K2) DK BLUE (S) ACD Blood Culture NIPT/NTD T [facility]
[2024-08-30] MEDS ORDERED: NA CHLORIDE 0.9% 1,000 ML ONE (01:52)
[2024-08-30 01:55] LABS: Absolute Eosinophils 0.1 K/uL (0-0.5); Absolute Lymphocytes (CBC) 2.1 K/uL (0.7-4.9); Absolute Monocytes 0.5 K/uL (0.1-1.3); Absolute Neutrophil 3.3 K/uL (1.8-8.0); Basophils % 0.3 % (0-1.3); Eosinophils % 1.4 % (0-4.4); Hematocrit 36.4 % (36.0-45.0); Hemoglobin 12.9 g/dL (12.0-15.0); Lymphocytes % 34.8 % (15.3-44.8); MCH 31.3 pg (27.0-35.0); MCHC 35.4 g/dL (32.0-36.0); MCV 88.2 fL (80-100); MPV 7.6 fL (7.6-11.3); Neutrophils % 54.5 % (41.7-73.7); Platelets 278 thou/uL (152-406); RBC Red Blood Cell Count 4.13 M/uL (3.86-4.86); Red Cell Distribution Width 14.1 % (12.1-15.2)
[2024-08-30 01:57] LABS: PT Prothrombin Time 10.4 SECONDS (10-13.0); Protime INR 0.91
[2024-08-30 02:13] LABS: Albumin 2.5 g/dL (3.4-5.0); Albumin/Globulin Ratio 0.8 (1.1-1.8); Anion Gap 8.4 mEq/L (5.0-15.0); Bilirubin Direct 0.2 mg/dL (0-0.2); Bilirubin Indirect, Calculated 0.2 mg/dL (0.2-0.8); Bilirubin Total 0.4 mg/dL (0.2-1.0); Globulin 3.2 g/dL (2.3-3.5); Potassium 3.4 mEq/L (3.5-5.1); Protein, Total 5.7 g/dL (6.4-8.2); Troponin High Sensitivity 26.5 pg/mL (<58.9)
[2024-08-30] MEDS ORDERED: HYDRALAZINE HCL 20 MG/ML VIAL ONE (02:36)
[2024-08-30 03:30] LABS: Barbiturates POSITIVE (NEGATIVE); Benzodiazepines NEGATIVE (NEGATIVE); Cocaine NEGATIVE (NEGATIVE); METHAMPHETAM NEGATIVE (NEGATIVE); Methadone NEGATIVE (NEGATIVE); Opiates NEGATIVE (NEGATIVE); Phencyclidine NEGATIVE (NEGATIVE); THC Cannibis NEGATIVE (NEGATIVE)
[2024-08-30 03:44] LABS: Specific Gravity 1.007 (1.005-1.030); Urine Bilirubin NEGATIVE (Negative); Urine Blood 2+ (Negative); Urine Clarity Turbid (Clear); Urine Color Colorless (Yellow); Urine Glucose NEGATIVE (Negative); Urine Ketones TRACE (Negative); Urine Microscopic Reflex YN NO UMIC; Urine Nitrite NEGATIVE (Negative); Urine Protein 3+ (Negative); Urine Urobilinogen Normal (Normal)
[2024-08-30 03:48] LABS: Sqamous Epithelial <5 /HPF (None Seen); Urine Bacteria None Seen /HPF (<20); Urine Crystals Unidentified Few /HPF (None Seen); Urine Culture Reflex Order NOT NEEDED; Urine RBC 21-50 /HPF (None Seen); Urine WBC <5 /HPF (<5); Urine Yeast (Budding) Trace /HPF (None Seen)
[2024-08-30] MEDS ORDERED: POTASSIUM 25 MEQ EFFERV TAB ONE ×2 (05:02→05:04)
[2024-08-30] MEDS ORDERED: ZIPRASIDONE MESYLA 20 MG/VIAL IM ONE (05:08)
[2024-08-30] MEDS ORDERED: WATER FOR INJ,STERILE 10 ML ONE (05:08)
--- NOTE | 2024-08-30 05:16 | ER ---
Nurse's Notes [facility] Name: Susan Rodriguez Age: 63 yrs Sex: Female : 1960 Arrival Date: 08/30/2024 Time: 00:53 Bed 4 Private MD: Diagnosis: Altered mental status, unspecified;Hypertensive heart disease without heart failure;Volume depletion, unspecified;Insomnia, unspecified;Hypo-osmolality and hyponatremia;Chronic sinusitis, unspecified Presentation: 08/30 01:14 Chief complaint: Patient's son or daughter states: DX of Alzheimer's and dementia. lg3 neurologist changed medication on 08/20. Since med change PT has become confused, agitated, combative, not sleeping. Coronavirus screen: Client denies travel out of the [place] in the last 14 days. At this time, the client does not indicate any symptoms associated with coronavirus-19. Ebola Screen: No symptoms or risks identified at this time. Initial Sepsis Screen: Does the patient meet any 2 criteria? No. Patient's initial sepsis screen is negative. Does the patient have a suspected source of infection? No. Patient's initial sepsis screen is negative. Risk Assessment: Do you want to hurt yourself or someone else? Patient reports no desire to harm self or others. Onset of symptoms was August 20, 2024. 01:14 Method Of Arrival: [facility] 01:14 Acuity: MARIO 3 lg3 Triage Assessment: 01:16 General: Appears in no apparent distress. Behavior is agitated, restless. Pain: Denies 3 pain. EENT: No deficits noted. No signs and/or symptoms were reported regarding the EENT system. Neuro: Hubre Agitation-Sedation Scale (RASS): +2 Agitated Level of Consciousness is awake, confused, Oriented to person. Cardiovascular: No deficits noted. Denies chest pain, shortness of breath, Capillary refill < 3 seconds Clubbing of nail beds is absent JVD is absent Patient's skin is warm and dry. Respiratory: No deficits noted. Airway is patent Respiratory effort is even, unlabored, Respiratory pattern is regular, symmetrical. GI: No deficits noted. No signs and/or symptoms were reported involving the gastrointestinal system. : No signs and/or symptoms were reported regarding the genitourinary system. Derm: No deficits noted. No signs and/or symptoms reported regarding the dermatologic system. Skin is intact, is healthy with good turgor, Skin is dry, Skin is normal, Skin temperature is warm. Musculoskeletal: No deficits noted. No signs and/or symptoms reported regarding the musculoskeletal system. Circulation, motion, and sensation intact. Range of motion: intact in all extremities. Historical: - Allergies: 01:16 PENICILLINS; lg3 - Home Meds: 01:16 Fluoxetine Oral [Active]; Primidone Oral [Active]; memantine oral [Active]; lg3 atorvastatin oral [Active]; lamotrigine oral [Active]; Aptiom oral [Active]; - PMHx: 01:16 Anxiety; Hyperlipidemia; Hypertensive disorder; Hypothyroidism; Randomly passes out; lg3 Seizure; Depressive disorder; Alzheimer's disease; - PSHx: 01:16 Total abdominal hysterectomy; lg3 - Immunization history:: Adult Immunizations up to date. - Infectious Disease History:: Denies. - Social history:: Smoking status: Patient denies any tobacco usage or history of. Screenin:58 [facility] ED Fall Risk Assessment (Adult) History of falling in the last 3 months, bm8 including since admission No falls in past 3 months (0 pts) Confusion or Disorientation Yes (5 pts) Intoxicated or Sedated No (0 pts) Impaired Gait No (0 pts) Mobility Assist Device Used No (0 pt) Altered Elimination No (0 pt) Score/Fall Risk Level 3 or more points = High Risk Oriented to surroundings, Maintained a safe environment, Educated pt \T\ family on fall prevention, incl call for assistance when getting out of bed, Assessed \T\ reinforced patient's understanding of fall precautions, Hourly rounding (assess needs \T\ fall precautionary measures) done, Used ambulatory aids as needed (educated on \T\ assisted with), Used gait belt as appropriate Implemented a Fall Risk Plan of Care. Abuse screen: Denies threats or abuse. Nutritional screening: No deficits noted. Tuberculosis screening: No symptoms or risk factors identified. Assessment: :58 Reassessment: per daughter, her mother's medications have been changed this week and bm8 now acting more aggresively. General: Appears in no apparent distress. comfortable, Behavior is agitated, anxious, fussy. Pain: Denies pain. Neuro: Level of Consciousness is awake, alert, obeys commands, Oriented to person, place, [employer] Claims are equal bilaterally Moves all extremities. Full function Gait is steady, Speech is normal, Facial symmetry appears normal, Pupils are PERRLA, Pupil Size: 4 mm Denies headache. Cardiovascular: Capillary refill < 3 seconds in bilateral fingers Patient's skin is warm and dry. Respiratory: Airway is patent Respiratory effort is even, unlabored, Respiratory pattern is regular, symmetrical, Breath sounds are clear bilaterally. GI: No deficits noted. : No deficits noted. EENT: No deficits noted. Derm: No deficits noted. Musculoskeletal: No deficits noted. 03:17 Reassessment: Patient appears in no apparent distress at this time. No changes from ha1 previously documented assessment. Patient and/or family updated on plan of care and expected duration. Pain level reassessed. Patient is alert, oriented x 3, equal unlabored respirations, skin warm/dry/pink. Patient denies pain at this time. 03:59 Reassessment: Patient appears in no apparent distress at this time. No changes from bm8 previously documented assessment. Patient and/or family updated on plan of care and expected duration. Pain level reassessed. Patient is alert, oriented x 3, equal unlabored respirations, skin warm/dry/pink. Patient denies pain at this time. 05:20 Reassessment: Patient appears in no apparent distress at this time. Patient and/or ha1 family updated on plan of care and expected duration. Pain level reassessed. Patient is alert, oriented x 3, equal unlabored respirations, skin warm/dry/pink. Patient denies pain at this time. 06:01 Reassessment: Patient appears in no apparent distress at this time. Patient and/or bm8 family updated on plan of care and expected duration. Pain level reassessed. pt is resting with eyes closed breathing is even unlabored with symmetrical rise and fall of chest. 07:20 Reassessment: Dr. Agustin consulted Neurology, Dr. Pendleton who states ok to admit ss patient here. Vital Signs: 01:14 BP 188 / 86; Pulse 82; Resp 16 S; Temp 98.1(O); Pulse Ox 98% on R/A; Weight 68.95 kg lg3 (R); Height 5 ft. 1 in. (R); 01:58 BP 207 / 76; Pulse 75; Resp 18; Temp 98.1; Pulse Ox 100% ; Pain 0/10; bm8 03:17 BP 192 / 71; Pulse 75; Resp 16; Temp 98.1; Pulse Ox 99% ; Pain 0/10; ha1 03:59 BP 186 / 77; Pulse 85; Resp 16; Temp 98.1; Pulse Ox 99% ; Pain 0/10; bm8 05:20 BP 168 / 77; Pulse 84; Resp 17; Temp 98.1; Pulse Ox 98% ; Pain 0/10; ha1 06:28 BP 120 / 52; Pulse 88; Resp 16; Temp 98.4; Pulse Ox 98% ; Pain 0/10; bm8 07:20 BP 88 / 45; Pulse 82; Resp 18; Pulse Ox 95% on R/A; ph 07:43 BP 103 / 55; Pulse 81; Resp 18; Pulse Ox 95% on R/A; ph 01:14 Body Mass Index 28.72 (68.95 kg, 154.94 cm) lg3 01:58 Pain Scale: Adult bm8 03:17 Pain Scale: Adult ha1 03:59 Pain Scale: Adult bm8 05:20 Pain Scale: Adult ha1 06:28 Pain Scale: Adult bm8 [place] Coma Score: 01:58 Eye Response: spontaneous(4). Motor Response: obeys commands(6). Verbal Response: bm8 oriented(5). Total: 15. 03:17 Eye Response: spontaneous(4). Motor Response: obeys commands(6). Verbal Response: ha1 oriented(5). Total: 15. 03:59 Eye Response: spontaneous(4). Motor Response: obeys commands(6). Verbal Response: bm8 oriented(5). Total: 15. 05:20 Eye Response: spontaneous(4). Motor Response: obeys commands(6). Verbal Response: ha1 oriented(5). Total: 15. 06:01 Eye Response: spontaneous(4). Motor Response: obeys commands(6). Verbal Response: bm8 oriented(5). Total: 15. ED Course: 00:58 Patient arrived in ED. lg3 01:05 Elpidio Rutherford RN is Primary Nurse. bm8 01:15 Srinivas Davenport PA is PHCP. cp 01:15 Srinivas Agustin MD is Attending Physician. cp 01:16 Triage completed. lg3 01:16 Arm band placed on left wrist. lg3 01:58 Patient has correct armband on for positive identification. Placed in gown. Bed in low bm8 position. Call light in reach. Side rails up X2. Adult w/ patient. Client placed on continuous cardiac and pulse oximetry monitoring. NIBP monitoring applied. court recording monitor on. Pulse ox on. NIBP on. Door closed. Noise minimized. Warm blanket given. Pillow given. Verbal reassurance given. Head of bed elevated. 01:58 No provider procedures requiring assistance completed. Initial lab(s) drawn, by ct, bmAllie sent to lab. Inserted saline lock: 22 gauge in right antecubital area, using aseptic technique. Blood collected. Flushed with 10 mL NS. Patient maintains SpO2 saturation greater than 95% on room air. 02:01 EKG done, by ED staff, reviewed by Srinivas CHOI. oe 02:05 XRAY Chest (1 view) In Process Unspecified. EDMS 03:17 Provided Education on: NEED FOR ADMISSION. ha1 03:33 CT Head Brain wo Cont In Process Unspecified. EDMS 05:13 Prince Monique MD is Hospitalizing Provider. cp 06:06 Patient admitted, IV remains in place. bm8 Administered Medications: 01:58 Drug: NS 0.9% IV 1000 ml IV at 1 bolus Per protocol; to be given as a bolus over 60 bm8 minutes Route: IV; Rate: 1 bolus; Site: right antecubital; 02:53 Follow up: Response: No adverse reaction; IV Status: Completed infusion bm8 02:53 Drug: hydrALAZINE IVP 10 mg IVP once Route: IVP; Site: right antecubital; bm8 03:18 Follow up: Response: No adverse reaction ha1 05:03 Drug: Potassium PO Effervescent Tablet 50 mEq PO once; dissolve in 4 ounces of water or bm8 juice Route: PO; 05:20 Follow up: Response: No adverse reaction ha1 05:03 Drug: hydrALAZINE IVP 10 mg IVP once Route: IVP; Site: right antecubital; bm8 06:07 Follow up: Response: No adverse reaction bm8 05:20 Drug: Geodon IM 10 mg IM once Route: IM; Site: right deltoid; ha1 06:06 Follow up: Response: No adverse reaction bm8 06:28 Drug: Ativan IVP 1 mg IVP once Route: IVP; Site: right antecubital; bm8 07:45 Follow up: Response: No adverse reaction ph 07:23 Drug: NS 0.9% IV 500 ml 500 ml IV at 1 bolus once; to be given as a bolus over 30 ph minutes Volume: 500 ml; Route: IV; Rate: 1 bolus; Site: right antecubital; 08:00 Follow up: Response: No adverse reaction; IV Status: Completed infusion; IV Intake: ph 500ml 07:33 Drug: Keppra IV 1000 mg IV at per protocol once Route: IV; Rate: per protocol; Site: ph right antecubital; 08:00 Follow up: Response: No adverse reaction; IV Status: Completed infusion ph 07:33 Drug: Rocephin IV 1 grams IV at per protocol once; Given slow IV push per pharmacy ph instructions Route: IV; Rate: per protocol; Site: right antecubital; 08:00 Follow up: Response: No adverse reaction; IV Status: Completed infusion ph Medication: 01:58 VIS not applicable for this client. bm8 Intake: 08:00 IV: 500ml; Total: 500ml. ph Outcome: 05:15 Decision to Hospitalize by Provider. cp 09:18 Admitted to ER Hold. Please see [facility] for further documentation. ph 09:18 Condition: stable 09:18 Instructed on the need for admit, 13:34 Patient left the ED. ph Signatures: Dispatcher [employer] EDMS Gretel Whittaker RN RN Sally Canela RN RN ph Srinivas Davenport PA PA cp Chad Mckinley Lacie RN RN lg3 Lori Teague RN RN ha1 Elpidio Rutherford RN RN bm8 Corrections: (The following items were deleted from the chart) 06:28 06:01 BP 120 / 52; Pulse 100bpm; Resp 16bpm; Pulse Ox 100%; Temp 98.4F; Pain 0/10, bm8 Adult; bm8
--- NOTE | 2024-08-30 05:16 | EDPHYS ---
Physician Documentation Formerly [facility] Name: Susan Rodriguez Age: 63 yrs Sex: Female : 1960 Arrival Date: 08/30/2024 Time: 00:53 Bed 4 Private MD: Srinivas Eng HPI: 08/30 01:25 This 63 yrs old Female presents to ER via Ambulatory with complaints of cp Altered Mental Status. 01:25 The patient presents with agitation, confusion. Onset: The symptoms/episode cp began/occurred 3 day(s) ago. 01:25 Possible causes: difficulty sleeping, recent medication change. cp Historical: - Allergies: 01:16 PENICILLINS; lg3 - Home Meds: 01:16 Fluoxetine Oral [Active]; Primidone Oral [Active]; memantine oral [Active]; lg3 atorvastatin oral [Active]; lamotrigine oral [Active]; Aptiom oral [Active]; - PMHx: 01:16 Anxiety; Hyperlipidemia; Hypertensive disorder; Hypothyroidism; Randomly passes out; lg3 Seizure; Depressive disorder; Alzheimer's disease; - PSHx: 01:16 Total abdominal hysterectomy; lg3 - Immunization history:: Adult Immunizations up to date. - Infectious Disease History:: Denies. - Social history:: Smoking status: Patient denies any tobacco usage or history of. ROS: 01:30 Neuro: Positive for altered mental status, cp 01:30 Eyes: Negative for injury, pain, redness, and discharge, cp 01:30 Constitutional: Negative for fever, 01:30 Cardiovascular: Negative for chest pain, 01:30 Respiratory: Negative for cough, shortness of breath, wheezing, 01:30 Abdomen/GI: Negative for abdominal pain, vomiting, diarrhea, constipation, 01:30 All other systems are negative, cp Exam: 01:33 Constitutional: The patient appears in no acute distress, alert, awake, cp non-diaphoretic, non-toxic, well developed, well nourished, 01:33 Head/Face: Normocephalic, atraumatic. cp 01:33 Eyes: Periorbital structures: appear normal, Pupils: equal, round, and reactive to light and accomodation, Extraocular movements: intact throughout, Conjunctiva: normal, Sclera: no appreciated abnormality, Lids and lashes: appear normal, bilaterally, 01:33 ENT: External ear(s): are unremarkable, Nose: is normal, Mouth: Lips: moist, Oral mucosa: moist, Posterior pharynx: Airway: no evidence of obstruction, patent, :33 Neck: ROM/movement: Meningeal signs: are not present, nuchal rigidity, is not appreciated, :33 Chest/axilla: Inspection: normal, :33 Cardiovascular: Rate: normal, Rhythm: regular, Edema: is not appreciated, JVD: is not appreciated, :33 Respiratory: the patient does not display signs of respiratory distress, Respirations: normal, no use of accessory muscles, no retractions, labored breathing, is not present, Breath sounds: are clear throughout, no decreased breath sounds, no stridor, no wheezing, :33 Abdomen/GI: Inspection: abdomen appears normal, Palpation: abdomen is soft and non-tender, in all quadrants, :33 Neuro: Orientation: to person, Mentation: able to follow commands, confused, Motor: moves all fours, no focal deficits, Gait: is steady, 02:00 ECG was reviewed by the Attending Physician. cp Vital Signs: 01:14 BP 188 / 86; Pulse 82; Resp 16 S; Temp 98.1(O); Pulse Ox 98% on R/A; Weight 68.95 kg lg3 (R); Height 5 ft. 1 in. (R); 01:58 BP 207 / 76; Pulse 75; Resp 18; Temp 98.1; Pulse Ox 100% ; Pain 0/10; bm8 03:17 BP 192 / 71; Pulse 75; Resp 16; Temp 98.1; Pulse Ox 99% ; Pain 0/10; ha1 03:59 BP 186 / 77; Pulse 85; Resp 16; Temp 98.1; Pulse Ox 99% ; Pain 0/10; bm8 05:20 BP 168 / 77; Pulse 84; Resp 17; Temp 98.1; Pulse Ox 98% ; Pain 0/10; ha1 06:28 BP 120 / 52; Pulse 88; Resp 16; Temp 98.4; Pulse Ox 98% ; Pain 0/10; bm8 07:20 BP 88 / 45; Pulse 82; Resp 18; Pulse Ox 95% on R/A; ph 07:43 BP 103 / 55; Pulse 81; Resp 18; Pulse Ox 95% on R/A; ph 01:14 Body Mass Index 28.72 (68.95 kg, 154.94 cm) lg3 01:58 Pain Scale: Adult bm8 03:17 Pain Scale: Adult ha1 03:59 Pain Scale: Adult bm8 05:20 Pain Scale: Adult ha1 06:28 Pain Scale: Adult bm8 [place] Coma Score: 01:58 Eye Response: spontaneous(4). Motor Response: obeys commands(6). Verbal Response: bm8 oriented(5). Total: 15. 03:17 Eye Response: spontaneous(4). Motor Response: obeys commands(6). Verbal Response: ha1 oriented(5). Total: 15. 03:59 Eye Response: spontaneous(4). Motor Response: obeys commands(6). Verbal Response: bm8 oriented(5). Total: 15. 05:20 Eye Response: spontaneous(4). Motor Response: obeys commands(6). Verbal Response: ha1 oriented(5). Total: 15. 06:01 Eye Response: spontaneous(4). Motor Response: obeys commands(6). Verbal Response: bm8 oriented(5). Total: 15. MDM: 05:15 Medical Screening Exam initiated cp 05:15 Management of patient was discussed with the following: Hospitalist: DR Severino will cp admit after discussion. 05:15 Historians other than the Patient: Daughter/Son: daughter provides hpi. Care cp significantly affected by the following chronic conditions: Hypertension. 07:19 Differential Diagnosis: CVA, electrolyte abnormality, alcohol intoxication, jerrod hypoglycemia, intracranial bleed, overdose, pneumonia, seizure, sepsis, TIA, UTI, volume depletion. Data reviewed: vital signs, nurses notes, lab test result(s), EKG, radiologic studies, CT scan, plain films. Consideration of Admission/Observation Patient was admitted/placed on observation. Escalation of care including admission/observation considered. I considered the following discharge prescriptions or medication management in the emergency department Medications were administered in the Emergency Department. See MAR. Independent interpretation of the following test(s) in the Emergency Department EKG: See my EKG interpretation above. 08/30 01:23 Order name: Basic Metabolic Panel; Complete Time: 02:23 cp 08/30 02:24 Interpretation: Normal except: NA 128; K 3.4; CL 93; BUN 23; CRE 1.19; GFR 51; CA 8.1. cp 08/30 01:23 Order name: CBC with Diff; Complete Time: 02:23 cp 08/30 01:23 Order name: LFT's; Complete Time: 02:23 cp 08/30 01:23 Order name: Magnesium; Complete Time: 02:23 cp 08/30 01:23 Order name: NT PRO-BNP; Complete Time: 02:23 cp 08/30 01:23 Order name: PT-INR; Complete Time: 02:23 cp 08/30 01:23 Order name: Troponin HS; Complete Time: 02:23 cp 08/30 01:23 Order name: Lactate w/ 2H reflex if indic.; Complete Time: 03:40 cp 08/30 01:23 Order name: Blood Culture Adult (2) cp 08/30 01:23 Order name: UA Rfx Ramos Cult if indicated; Complete Time: 03:52 cp 08/30 03:52 Interpretation: Normal except: UCLA Turbid; UKET TRACE; UBLD 2+; UPROT 3+; URBC 21-50; cp BYST Trace. 08/30 01:24 Order name: UDS; Complete Time: 03:40 cp 08/30 07:53 Order name: Creatine Phosphokinase EDMO 08/30 07:53 Order name: T4 Free EDMO 08/30 07:53 Order name: Thyroid Stimulating Hormone EDMO 08/30 07:53 Order name: CBC with Automated Diff EDMS 08/30 07:53 Order name: CBC with Automated Diff EDMS 08/30 07:53 Order name: Comprehensive Metabolic Panel EDMO 08/30 07:53 Order name: Comprehensive Metabolic Panel EDMO 08/30 07:53 Order name: Ammonia EDMS 08/30 01:23 Order name: CT Head Brain wo Cont; Complete Time: 07:15 cp 08/30 01:23 Order name: XRAY Chest (1 view); Complete Time: 07:15 cp 08/30 01:23 Order name: EKG; Complete Time: 01:24 cp 08/30 07:53 Order name: CONS Physician Consult EDMO 08/30 01:23 Order name: EKG - Nurse/Tech; Complete Time: 01:58 cp 08/30 01:23 Order name: IV Saline Lock; Complete Time: 01:58 cp 08/30 01:23 Order name: Labs collected and sent; Complete Time: :58 cp 08/30 01:23 Order name: O2 Per Protocol; Complete Time: : cp 08/30 01:23 Order name: O2 Sat Monitoring; Complete Time: :58 cp EC:00 Rate is 108 beats/min. Rhythm is regular. UT interval is normal. QRS interval is cp normal. QT interval is normal. Interpreted by me. Reviewed by me. Administered Medications: Drug: NS 0.9% IV 1000 ml IV at 1 bolus Per protocol; to be given as a bolus over 60 bm8 minutes Route: IV; Rate: 1 bolus; Site: right antecubital; 02:53 Follow up: Response: No adverse reaction; IV Status: Completed infusion bm8 02:53 Drug: hydrALAZINE IVP 10 mg IVP once Route: IVP; Site: right antecubital; bm8 03:18 Follow up: Response: No adverse reaction ha1 05:03 Drug: Potassium PO Effervescent Tablet 50 mEq PO once; dissolve in 4 ounces of water or bm8 juice Route: PO; 05:20 Follow up: Response: No adverse reaction ha1 05:03 Drug: hydrALAZINE IVP 10 mg IVP once Route: IVP; Site: right antecubital; bm8 06:07 Follow up: Response: No adverse reaction bm8 05:20 Drug: Geodon IM 10 mg IM once Route: IM; Site: right deltoid; ha1 06:06 Follow up: Response: No adverse reaction bm8 06:28 Drug: Ativan IVP 1 mg IVP once Route: IVP; Site: right antecubital; bm8 07:45 Follow up: Response: No adverse reaction ph 07:23 Drug: NS 0.9% IV 500 ml 500 ml IV at 1 bolus once; to be given as a bolus over 30 ph minutes Volume: 500 ml; Route: IV; Rate: 1 bolus; Site: right antecubital; 08:00 Follow up: Response: No adverse reaction; IV Status: Completed infusion; IV Intake: ph 500ml 07:33 Drug: Keppra IV 1000 mg IV at per protocol once Route: IV; Rate: per protocol; Site: ph right antecubital; 08:00 Follow up: Response: No adverse reaction; IV Status: Completed infusion ph 07:33 Drug: Rocephin IV 1 grams IV at per protocol once; Given slow IV push per pharmacy ph instructions Route: IV; Rate: per protocol; Site: right antecubital; 08:00 Follow up: Response: No adverse reaction; IV Status: Completed infusion ph Disposition Summary: 08/30/24 05:15 Hospitalization Ordered Notes: Hospitalization Status: Inpatient Admission cp Provider: Prince Eneida cp Condition: Stable cp Problem: new cp Symptoms: are unchanged cp Bed/Room Type: Standard cp Location: Telemetry/MedSurg (Inpatient)(08/30/24 12:38) Room Assignment: 412(08/30/24 12:38) Diagnosis - Altered mental status, unspecified cp - Hypertensive heart disease without heart failure cp - Volume depletion, unspecified cp - Insomnia, unspecified cp - Hypo-osmolality and hyponatremia jerrod - Chronic sinusitis, unspecified jerrod Forms: - Medication Reconciliation Form cp - SBAR form cp - Leadership Thank You Letter cp Addendum: 09/04/2024 16:39 Co-signature as Attending Physician, Srinivas Agustin MD I agree with the assessment and c lugo plan of care. Signatures: Dispatcher [employer] Aleksandra Mendiola RN Srinivas Galvan MD MD cha Blanchard, Shelby, RN RN Sally Cortes RN RN ph Page, Corey, PA PA cp Able, Lacie, RN RN lg3 Lori Teague RN RN ha1 Elpidio Rutherford, RN RN bm8 Corrections: (The following items were deleted from the chart) 08/30 01:24 01:24 BASIC METABOLIC PANEL+C.LAB.BRZ ordered. EDMS EDMS :24 01:24 CBC+H.LAB.BRZ ordered. EDMS EDMS :24 01:24 HEPATIC FUNCTION+C.LAB.BRZ ordered. EDMS EDMS : 01:24 MAGNESIUM+C.LAB.BRZ ordered. EDMS EDMS : 01:24 PROBNP+C.LAB.BRZ ordered. EDMS EDMS : 01:24 PROTIME (+INR)+COAG.LAB.BRZ ordered. EDMS EDMS 01:24 Troponin High Sensitivity+C.LAB.BRZ ordered. EDMS EDMS 01:24 01:24 LACTATE+C.LAB.BRZ ordered. EDMS EDMS 01:24 01:24 BLOOD CULTURE*+BA.LAB.BRZ ordered. EDMS EDMS 01:24 01:24 UA Rfx Ramos Cult if indicated+U.LAB.BRZ ordered. EDMS EDMS 02:01 02:00 This 63 yrs old Female presents to ER via Ambulatory with complaints of cp Altered Mental Status. cp 03:52 03:47 Normal except: [facility] Turbid; UKET TRACE; UBLD 2+; UPROT 3+. cp cp 06:08 01:23 Cardiac monitoring ordered. cp bm8 08:55 05:15 Telemetry/MedSurg (Inpatient) cp ss 08:55 05:15 cp ss 12:38 08:55 [facility] ER HOLD ss kl 12:38 08:55 ERHOLD- ss kl
--- NOTE | 2024-08-30 05:44 | RAD REPORT ---
EXAM: CT Head/Brain Without Contrast 08/30/2024 at 3: 25 AM HISTORY: Mental status change COMPARISON: CT Head/Brain Without Contrast 07/19/2024 TECHNIQUE: Head/brain axial images acquired without contrast. Coronal and sagittal reformats created. Exam performed according to departmental dose-optimization program which includes automated exposure control, adjustment of mA and/or kV according to patient size, and/or use of iterative recon struction technique. FINDINGS: Evaluation more difficult due to patient's mild motion artifact. No midline shift, mass effect, intracranial hemorrhage, or hydrocephalus. Chronic, irregular, right lentiform nucleus calcification measuring about 8 x 7 x 6 mm. Small rounded left occipital calcification measuring about 3 x 2 mm. Marked left maxillary sinus opacification. Mastoid air cells clear. No skull fracture or significant skull lesion. IMPRESSION: 1. No CT evidence of acute intracranial abnormality. 2. 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 3. Chronic hyperdense left maxillary sinus opacification. This may represent chronic sinusitis. Electronically signed by: Aron Sevilla MD 08/30/2024 05:39 AM CDT Due to temporary technical issues with the [email or web address] reporting system, reports are being anita d by the in-house radiologist without review as a courtesy to ensure prompt reporting the interpreting radiologist is fully responsible for the content of the report. Transcribed Date/Time: 08/30/2024 5:44 AM
--- NOTE | 2024-08-30 06:10 | RAD REPORT ---
EXAM DESCRIPTION: Chest Single View RadLex: XR CHEST 1 VIEW CLINICAL HISTORY: 63 years Female, altered mental status COMPARISON: None. FINDINGS: Single portable AP upright view of the chest. Generator pack projecting over the medial left chest wi th leads directed superiorly into the left neck. Cardiac silhouette is not enlarged. No consolidation. No pleural effusion or pneumothorax. No acute osseous abnormality. IMPRESSION: No acute radiographic abnormality. Electronically signed by: Maddie Lou MD 08/30/2024 03:34 AM CDT Due to temporary technical issues with the PACS/[email or web address] reporting system, reports are being anita d by the in-house radiologist without review as a courtesy to ensure prompt reporting the interpreting radiologist is fully responsible for the content of the report. Transcribed Date/Time: 08/30/2024 6:10 AM
[2024-08-30] MEDS ORDERED: LORazepam 2 MG/ML VIAL ONE (06:18)
[2024-08-30] MEDS ORDERED: NA CHLORIDE 0.9% 500 ML ONE (07:18)
[2024-08-30] MEDS ORDERED: NA CHLORIDE 0.9% 100 ML ONE ×2 (07:21→23:54)
[2024-08-30] MEDS ORDERED: LEVETIRACETAM 500 MG/5 ML VIAL IV ONE (07:21)
[2024-08-30] MEDS ORDERED: CEFTRIAXONE 1000 MG/VIAL ONE (07:28)
[2024-08-30] MEDS ORDERED: ONDANSETRON 4 MG/2 ML VIAL IV PRN (07:44)
--- NOTE | 2024-08-30 07:51 | P.HP ---
Patient History Date of Service: 08/30/24 History of Present Illness: 63-year-old female with a past medical history of hyperlipidemia, hypertension, hypothyroidism, seizure presenting with altered mental status. No family at bedside history is limited per chart review. In discussion with nursing staff she was recently seen at her neurologist office and was taken off certain medications. She developed a seizure the following day. Since then her mentation has significantly worsened. In the ED she received a fluid bolus alongside IV Keppra. Allergies No Known Drug Allergies Adverse Reaction (Verified 07/19/24 20:21) Home Medications: Donepezil HCl 1 tab BEDTIME 07/19/24 Atorvastatin Calcium 40 mg PO BEDTIME 07/20/24 Eslicarbazepine Acetate [Aptiom] 1 tab PO DAILY 07/20/24 Fluoxetine HCl [Prozac] 40 mg PO DAILY 07/20/24 Hydrocodone 5/APAP 325 [[place] 5/325*] 1 tab PO Q8H PRN #20 tab 07/20/24 Lamotrigine [Lamictal] 150 mg PO BID* 07/20/24 Levothyroxine [Synthroid*] 112 mcg PO [id number] 07/20/24 Liothyronine Sodium [Cytomel] 5 mcg PO DAILY 07/20/24 Memantine HCl [Namenda*] 1 tab PO BID* 07/20/24 Metoprolol Succinate [Toprol Xl*] 25 mg PO DAILY 07/20/24 Montelukast Sodium 10 mg PO DAILY 07/20/24 Primidone 1 tab PO BID 07/20/24 Valsartan 80 mg PO DAILY 07/20/24 clonazePAM [Clonazepam] 1 mg PO DAILY 07/20/24 Review of Systems is unable to be obtained Physical Examination - Physical Exam General: In no apparent distress HEENT: Normocephalic Neck: Supple Respiratory: Normal air movement Cardiovascular: No edema Capillary refill: <2 Seconds Gastrointestinal: Normal bowel sounds, Soft and benign Musculoskeletal: No clubbing Integumentary: No rashes Neurological: Normal speech Lymphatics: No axilla or inguinal lymphadenopathy - Studies Laboratory Data (last 24 hrs) 08/30/24 08/30/24 08/30/24 01:36 01:35 01:35 WBC 6.00 Hgb 12.9 Hct 36.4 Plt Count 278 PT 10.4 INR 0.91 Sodium 128 L Potassium 3.4 L BUN 23 H Creatinine 1.19 H Glucose 99 Magnesium 2.0 Total Bilirubin 0.4 AST 33 ALT 33 Alkaline Phosphatase 141 H Assessment and Plan - Plan Acute metabolic encephalopathy Hypertensive urgency Elevated creatinine Hyponatremia Chronic sinusitis Seizure disorder Hyperlipidemia Hypothyroidism Depressive disorder Alzheimer's disease Admit to floor Bedside swallow eval once she is more alert Start IV fluid Obtain EEG, loaded with Keppra IV twice daily Discussed with Dr. Pendleton Replace potassium Avoid nephrotoxin Start Unasyn for sinusitis Restart thyroid medication Continue memantine and Aricept Continue liothyronine Restart home blood pressure medication with valsartan and metoprolol UDS positive for barbiturates DVT prophylaxis with SCDs - Advance Directives Does patient have a Living Will: No Does patient have a Durable POA for Healthcare: No
[2024-08-30] MEDS: NA CHLORIDE 0.9% 1,000 ML IV SCH (08:00)
[2024-08-30 09:28] VITALS: BMI 28.7
[2024-08-30 09:32] LABS: Thyroid Stimulating Hormone 22.2 uIU/mL (0.358-3.740)
[2024-08-30] MEDS: LABETALOL 20 MG/4ML SYRINGE IV ONE (15:36)
[2024-08-30] MEDS: NA CHLORIDE 0.9% 100 ML ONE (17:35)
[2024-08-30] MEDS: AMPICILLIN/SULBACT 1.5 GM in NA CHLORIDE 0.9% 100 ML IVPB SCH (17:46)
[2024-08-30] MEDS: ATORVASTATIN 40 MG TAB PO SCH (20:11)
[2024-08-30] MEDS: HOME MED 1 EA UNK (Donepezil Hcl [Donepezil Hcl] 10 MG Tablet) PO SCH (20:11)
[2024-08-30] MEDS: levETIRAcetam 500 MG in NA CHLORIDE 0.9% 100 ML IV SCH (20:11)
[2024-08-30] MEDS: HYDRALAZINE HCL 20 MG/ML VIAL IV PRN (23:59)
[2024-08-31] MEDS: HYDRALAZINE HCL 20 MG/ML VIAL IV ONE (04:26)
[2024-08-31 04:33] LABS: Absolute Basophils 0.1 K/uL (0-0.5); Absolute Eosinophils 0.2 K/uL (0-0.5); Absolute Lymphocytes (CBC) 1.7 K/uL (0.7-4.9); Absolute Monocytes 0.4 K/uL (0.1-1.3); Absolute Neutrophil 2.8 K/uL (1.8-8.0); Eosinophils % 3.5 % (0-4.4); Hematocrit 33.4 % (36.0-45.0); Hemoglobin 11.9 g/dL (12.0-15.0); Lymphocytes % 32.9 % (15.3-44.8); MCH 31.7 pg (27.0-35.0); MCHC 35.7 g/dL (32.0-36.0); MCV 88.8 fL (80-100); MPV 7.5 fL (7.6-11.3); Monocytes % 7.4 % (3.3-12.3); Neutrophils % 54.2 % (41.7-73.7); Nucleated Red Blood Cells % 0.1 % (0-0); Platelets 248 thou/uL (152-406); RBC Red Blood Cell Count 3.76 M/uL (3.86-4.86); Red Cell Distribution Width 14.6 % (12.1-15.2)
[2024-08-31 04:49] LABS: Albumin/Globulin Ratio 0.8 (1.1-1.8); Anion Gap 7.8 mEq/L (5.0-15.0); Bilirubin Total 0.4 mg/dL (0.2-1.0); Globulin 2.6 g/dL (2.3-3.5); Potassium 3.8 mEq/L (3.5-5.1); Protein, Total 4.6 g/dL (6.4-8.2)
[2024-08-31] MEDS: LEVOTHYROXINE SOD 0.112 MG TAB PO SCH (05:06)
[2024-08-31] MEDS: POTASSIUM 25 MEQ EFFERV TAB PO ONE (05:06)
[2024-08-31] MEDS: LEVOTHYROXINE SODIUM 100 MCG VIAL IV SCH (05:07)
[2024-08-31] MEDS: MONTELUKAST 10 MG TAB PO SCH (08:06)
[2024-08-31] MEDS: METOPROLOL XL 25 MG TAB PO SCH (08:06)
[2024-08-31] MEDS: VALSARTAN 80 MG TAB PO SCH (08:06)
[2024-08-31] MEDS: LIOTHYRONINE SOD 5 MCG TAB PO SCH (08:07)
[2024-08-31] MEDS: MEMANTINE HCL 10 MG TABLET PO SCH (08:07)
[2024-08-31] MEDS: lamoTRIgine 150 MG TAB PO SCH (08:07)
[2024-08-31 09:38] VITALS: O2SAT 98
--- NOTE | 2024-08-31 11:59 | EKG ---
Test Date: 2024-08-30 Test Time: 01:55:27 Adding Machine Mechanic: TING MEASUREMENT RESULTS: Intervals: Rate: 108 AL: 124 QRSD: 72 QT: 364 QTc: 487 Trosper: P: 36 AL: 124 QRS: 37 T: 41 INTERPRETIVE STATEMENTS: Sinus tachycardia with occasional premature ventricular complexes Otherwise normal ECG Compared to ECG 07/19/2024 18:57:39 Ventricular premature complex(es) now present Sinus rhythm no longer present Electronically Signed On 08-31-24 11:56:44 CDT by Cristian Brown
[2024-08-31 13:38] VITALS: BP 146/69; TEMP 99.7
[2024-08-31] MEDS ORDERED: DONEPEZIL HCL 5 MG TAB PO SCH (21:00)
== END 2024-08-31 15:10 | disposition home or self-care (01) | DRG 71 ==
LOC: ER 00:53 → ERHOLD 07:44 → 4TH 13:03
PROVIDERS: ADMIT Family Medicine; ATTEND Hospitalist
DX: G93.41 Metabolic encephalopathy (principal); E87.1 Hypo-osmolality and hyponatremia; F02.83 Dementia in other diseases classified elsewhere, unspecified severity, with mood disturbance; F02.811 Dementia in other diseases classified elsewhere, unspecified severity, with agitation; G30.9 Alzheimer's disease, unspecified; G47.00 Insomnia, unspecified; I11.9 Hypertensive heart disease without heart failure; J32.9 Chronic sinusitis, unspecified; E86.9 Volume depletion, unspecified; I16.0 Hypertensive urgency; E78.5 Hyperlipidemia, unspecified; E03.9 Hypothyroidism, unspecified; G40.909 Epilepsy, unspecified, not intractable, without status epilepticus; Z88.0 Allergy status to penicillin; Z79.899 Other long term (current) drug therapy; Z90.710 Acquired absence of both cervix and uterus; Z79.890 Hormone replacement therapy
CPT/HCPCS: 36415; 70450; 71045; 80048; 80053; 80076; 80307; 81003; 82140; 82550; 83605; 83735; 83880; 84439; 84443; 84484; 85025; 85610; 87040; 93005; 96361; 96365; 96368; 96372; 96375; 99285; J0295; J0360; J0696; J1953; J3486; J7030; J7040

== ENCOUNTER 2024-12-14 10:10 | Emergency (ER) | payer OTHER ==
--- OUTSIDE RECORDS SUMMARY | 2024-12-14 10:14 | XMS REPORT | Continuity of Care Document ---
Author Name Unknown Address [address] [facility] [address] [place] [address] [facility] [place] Address [address] [facility] [address] [place] [address] Care Team Providers Care Computer Forensics Investigator Name Role Phone Austen Miller NP Primary Care Physician [phone] No, PCP Attending Clinician Unavailable Doctor Unassigned, Mcbee Attending Clinician U BRADEN Gurrola Attending Clinician Unavailable BRADEN HUERTAS Attending Clinician Unavailable MIKE CLEMENTS Attending Clinician Unavailab Mike Ash Attending Clinician [phone] EDER CHARLES Attending Clinician Unavailable Eder Charles MD Attending Clinician [phone] ISMAEL CAROLINA Attending Clinician Unavailable Ismael Carolina MD Attending Clinician [phone] Alex [facility] Attending Clinician Unavailabl e RADIOLOGY Attending Clinician Unavailable Radiology Attending Clinician Unavailable Doctor Unassigned, Mcbee Attending Clinician U MIKE Ann Admitting Clinician Unavailab EDER Iyer Admitting Clinician Unavailable ISMAEL CAROLINA Admitting Clinician Unavailable Ismael Carolina MD Admitting Clinician [phone] AUSTEN MILLER Admitting Clinician Unavailab marilyn Payers Payer Name Policy Type Policy Number Effective Date Expirati on Date Source Problems Condition Name Condition Details Condition Category Status Onset Date Resolution Date Last Treatment Date Treating Clinician Comments Source Refractory epilepsy Refractory epilepsy Disease Active 07-17 00:00: 00 [facility] Alzheimer' s disease Alzheimer' s disease, unspecifie d Problem [facility] Paranoia Paranoia Problem [facility] Dizziness Dizziness Problem [facility] Epilepsy, unspecifie d, not intractabl e, without status epilepticu s Epilepsy, unspecifie d, not intractabl e, without status epilepticu s Problem [facility] Anxiety Anxiety Problem [facility] Occlusion and stenosis of bilateral carotid arteries Occlusion and stenosis of bilateral carotid arteries Problem [facility] HLD (hyperlipi demia) HLD (hyperlipi demia) Problem [facility] Mild major depression , single episode Major depressive disorder, single episode, mild Problem [facility] Anxiety disorder Anxiety disorder, unspecifie d Problem [facility] Electroenc ephalogram abnormal Abnormal electroenc ephalogram [EEG] Problem [facility] Amnesia Other amnesia Problem [facility] Visual Disturbanc e Other visual disturbanc es Problem [facility] 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, unspecifie d Problem [facility] Multiple sclerosis Multiple sclerosis Problem [facility] [id number] Status post placement of VNS (vagus nerve stimulatio n) device Problem [facility] Chronic pain syndrome Chronic pain syndrome Problem [facility] Presence of brain neurostimu lator device Presence of brain neurostimu lator device Problem [facility] Insomnia Insomnia due to medical condition Problem [facility] [id number] Essential hypertensi on Problem [facility] Allergies, Adverse Reactions, Alerts Allergy Name Allergy Type Status Severity Reaction(s) Onset Date Inactive Date Treating Clinician Comments Source PENICILL IN DRUG INGREDI Active ITCHING 07-17 00:00: 00 [facility] Penicill in Propensi ty to adverse reaction s Active Swelling 07-17 00:00: 00 [facility] Substanc e with penicill in structur e and antibact erial mechanis m of action (substan ce) Substanc e with penicill in structur e and antibact erial mechanis m of action (substan ce) Active Unknown [facility] NO KNOWN ALLERGIE S Drug Class Active [facility] Social History Social Habit Start Date Stop Date Quantity Comments Source [facility] of [facility] Sex Assigned At [facility] Tobacco use and exposure 2023-07-31 00:00:00 2023-07-31 00:00:00 Smokeless tobacco non-user [facility] History of Social function 2023-07-31 00:00:00 2023-07-31 00:00:00 [facility] Smoking Status Start Date Stop Date Source Tobacco smoking consumption unknown [facility] Never Smoker [facility] Medications Ordered Medication Name Filled Medication Name Start Date Stop Date Current Medication? Ordering Clinician Indication Dosage Frequency Signature (SIG) Comments Components Source Zonisamide 100 MG Zonisamide 100 MG 5-19 00:00: 00 No 3{capsu le} QD Zonisamide 100 MG Rexulti 0.5 MG Rexulti 0.5 MG 5-14 00:00: 00 No 1{table t} QD Rexulti 0.5 MG clonazePAM 0.5 MG clonazePAM 0.5 MG 5-06 00:00: 00 No 1{table t} QD clonazePAM 0.5 MG clonazePAM 1 MG clonazePAM 1 MG 4-30 00:00: 00 No 1{table t} QD clonazePAM 1 MG Primidone 50 MG Primidone 50 MG 8-07 00:00: 00 No 2{table t} BID Primidone 50 MG Atorvastati n Calcium 40 MG Atorvastati n Calcium 40 MG 6-18 00:00: 00 No 1{table t} QD Atorvastat in Calcium 40 MG gadobenate dimeglumine (MULTIHANCE -15 mL) injection 0.2 mL/kg 5-08 16:15: 00 08-27 16:09 :00 No [id number] .2mL/kg 0.2 mL/kg, Intravenou s, ONCE, 1 dose, On Sat08/28/23 at 1115, Routine [facility] FLUoxetine 20 mg capsule 4-11 14:00: 00 07-31 18:22 :28 No 20mg Take 1 capsule by mouth daily. [facility] 10 mg tablet 07-31 14:00: 00 07-31 18:22 :28 No 10mg Take 1 tablet by mouth daily. [facility] clonazePAM 1 mg tablet 07-31 14:00: 00 07-31 18:22 :28 No 1mg Take 1 tablet by mouth daily. [facility] metoprolol succinate XL 25 mg 24 hr tablet 07-31 14:00: 00 07-31 18:22 :28 No 25mg Take 1 tablet by mouth daily. [facility] primidone 50 mg tablet 07-31 14:00: 07-31 18:22 :28 No 50mg Take 1 tablet by mouth daily. [facility] FLUoxetine 20 mg capsule 07-31 11:22: 25 Yes 20mg Take 1 capsule by mouth daily. [facility] montelukast 10 mg tablet 07-31 11:22: 25 Yes 10mg Take 1 tablet by mouth daily. [facility] eslicarbaze pine (APTIOM) 800 mg Tab 07-31 11:22: 25 Yes Take by mouth daily. [facility] clonazePAM 1 mg tablet 07-31 11:22: 25 Yes 1mg Take 1 tablet by mouth daily. [facility] Levothyroxi ne 112 mcg capsule 07-31 11:22: 25 Yes Take by mouth daily. [facility] atorvastati n 40 mg tablet 07-31 11:22: 25 Yes 40mg Take 1 tablet by mouth at bedtime. [facility] metoprolol succinate XL 25 mg 24 hr tablet 07-31 11:22: 25 Yes 25mg Take 1 tablet by mouth daily. [facility] primidone 50 mg tablet 07-31 11:22: 25 Yes 50mg Take 1 tablet by mouth daily. [facility] levothyroxi ne (SYNTHROID) tablet 112 mcg 07-31 11:00: 00 07-31 18:22 :28 No 112ug 112 mcg, Oral, QAM-0600, First dose on Sat08/01/23 at 0600, Until Discontinu ed [facility], sterile injection 10 mL 07-31 08:00: 00 07-31 07:39 :00 No 10mL 10 mL, Intravenou s, ONCE, 1 dose, On Sat08/01/23 at 0300, Routine [facility] donepeziL (ARICEPT) tablet 10 mg 07-31 02:00: 00 07-31 18:22 :28 No 10mg 10 mg, Oral, QHS, First dose on Sat07/31/23 at 2100, Until Discontinu ed, Routine [facility] atorvastati n 40 mg tablet 07-31 02:00: 00 07-31 18:22 :28 No 40mg Take 1 tablet by mouth at bedtime. [facility] sennosides (SENOKOT) tablet 8.6 mg 07-31 01:00: 00 07-31 18:22 :27 No 8.6mg 8.6 mg, Oral, BID, First dose on Sat07/31/23 at 1999, Until Discontinu ed, Routine [facility] famotidine (PEPCID AC) tablet 20 mg 07-31 01:00: 00 07-31 18:22 :27 No 20mg 20 mg, Oral, BID, First dose on Sat07/31/23 at 1999, Until Discontinu ed, Routine [facility] docusate (COLACE) capsule 100 mg 07-31 01:00: 00 07-31 18:22 :27 No 100mg 100 mg, Oral, BID, First dose on Sat07/31/23 at 1999, Until Discontinu ed, Routine [facility] sodium chloride 1,000 mg tablet 07-31 00:00: 00 08-31 04:59 :00 No [id number] 1g Take 1 tablet by mouth 3 (three) times daily with meals for 30 days. [facility] docusate 100 mg capsule 07-31 00:00: 00 08-15 04:59 :00 No [id number] 100mg Take 1 capsule by mouth daily for 14 days. Take with a full glass of water. [facility] methocarbam oL 500 mg tablet 07-31 00:00: 00 08-15 04:59 :00 No [id number] 500mg Take 1 tablet by mouth 4 (four) times daily for 14 days. Indication s: a uncontroll ed muscle contractio n with pain [facility] HYDROcodone -acetaminop hen 5-325 mg tablet 07-31 00:00: 00 08-08 04:59 :00 No [id number] 1{tbl} Take 1 tablet by mouth every 4 (four) hours as needed for Pain (scale 4-6) or Pain (scale 7-10) for up to 7 days. Indication s: acute pain [facility] ceFAZolin (ANCEF) injection 1,000 mg 07-30 23:00: 00 07-31 13:29 :00 No 1000mg 1,000 mg, Intravenou s, Q8H ABX, 3 doses, First dose on Sat07/31/23 at 1800, Last dose on Sat08/01/23 at 1000
Re ason for Anti-Infec tive: Surgical Prophylaxi s
Surgi lily Prophylaxi s: Neurosurge ry
Dura tion of therapy: within 24 hours of surgery [facility] NaCl 0.9% (NS) IV infusion 1,000 mL 07-30 18:15: 00 07-31 18:22 :27 No 1000mL at 75 mL/hr, IV Infusion, CONTINUOUS , Starting on Sat07/31/23 at 1315, Until Sat08/01/23 at 1322, Routine [facility] morpHINE (2 mg/mL) injection 2 mg 07-30 18:03: 26 07-31 18:22 :27 No 2mg 2 mg, Slow IV Push, Q3HPRN, Starting on Sat07/31/23 at 1303, Until Carol 08/01/23 at 1322, Routine, Pain (scale 7-10) [facility] oxyCODONE immediate release tablet 5 mg 07-30 18:03: 13 07-31 18:22 :27 No 5mg 5 mg, Oral, Q4HPRN, Starting on Sat07/31/23 at 1303, Until Carol 08/01/23 at 1322, Routine, Pain (scale 4-6)
[facility] Restricted medication : BRADEN HUERTAS [facility] acetaminoph en (TYLENOL) tablet 325 mg 07-30 18:03: 11 07-31 18:22 :27 No 325mg 325 mg, Oral, Q6HPRN, Starting on Sat07/31/23 at 1303, Until Carol 08/01/23 at 1322, Routine, Pain (scale 1-3) [facility] bisacodyL (DULCOLAX) suppository 10 mg 07-30 18:01: 29 07-31 18:22 :28 No 10mg 10 mg, Rectal, QHSPRN, Starting on Sat07/31/23 at 1301, Until Carol 08/01/23 at 1322, Routine, Constipati on [facility] NaCl 0.9% (NS) injection 5 mL 07-30 18:01: 29 07-31 18:22 :28 No 5mL 5 mL, Slow IV Push, PRN - SEE INSTRUCTIO NS, Starting on Sat07/31/23 at 1301, Until Carol 08/01/23 at 1322, 10 mL [facility] lactated ringers IV infusion 1,000 mL 07-30 18:00: 00 07-31 10:40 :22 No 1000mL at 75 mL/hr, 1,000 mL, IV Infusion, CONTINUOUS , Starting on Sat07/31/23 at 1300, Until Carol 08/01/23 at 0540, Routine, PACU [facility] HYDROcodone -acetaminop hen (NORCO 5) 5-325 mg tablet 1 tablet 07-30 18:00: 00 07-30 18:16 :00 No 1{tbl} 1 tablet, Oral, ONCE, 1 dose, On Sat07/31/23 at 1300, Routine, PACU [facility] FENTanyl PF (SUBLIMAZE (PF)) injection 25 mcg 07-30 17:59: 12 07-30 19:27 :00 No 25ug 25 mcg, Slow IV Push, Q5MIN PRN, 4 doses, Starting on Sat07/31/23 at 1259, Until Discontinu ed, Routine, Pain (scale 4-6), PACU [facility] vancomycin (VANCOCIN) 1 g in sodium chloride 0.9 % irrigation 07-30 17:08: 00 07-30 18:11 :58 No PRN, Starting on Sat07/31/23 at 1208, Until Sat07/31/23 at 1311, 1,000 mL, Intra-op [facility] lidocaine-e pinephrine (XYLOCAINE WITH EPINEPHRINE ) 0.5 %-1:200,000 injection 07-30 14:30: 00 07-30 18:11 :58 No PRN, Starting on Sat07/31/23 at 0930, Until Sat07/31/23 at 1311, Routine, Intra-op [facility] Valproic Acid 250 MG/5ML Valproic Acid 250 MG/5ML 3-21 00:00: 00 No 15{ml} BID Valproic Acid 250 MG/5ML buPROPion HCl 75 MG buPROPion HCl 75 MG 3-05 00:00: 00 No 1{table t} BID buPROPion HCl 75 MG clonazePAM 2 MG clonazePAM 2 MG 8-02 00:00: 00 No 1{table t} BID clonazePAM 2 MG Nuedexta 20-10 MG Nuedexta 20-10 MG 2022- 8-01 00:00: 00 No 1{capsu le} BID Nuedexta 20-10 MG Trintellix 10 MG Trintellix 10 MG [...] 2 MG clonazePAM 2 MG No 1{table t_on_th e_tongu e_and_a llow_to _dissol ve} QD clonazePAM 2 MG Nayzilam 5 MG/0.1ML Nayzilam 5 MG/0.1ML No 1{spray _as_nee ded} Nayzilam 5 MG/0.1ML lamoTRIgine 150 MG lamoTRIgine 150 MG No BID lamoTRIgin e 150 MG Metoprolol Succinate 25 MG Metoprolol Succinate 25 MG No 1{table t} QD Metoprolol Succinate 25 MG Donepezil HCl 10 MG Donepezil HCl 10 MG No QD Donepezil HCl 10 MG lamoTRIgine 100 MG lamoTRIgine 100 MG No 1{table t} lamoTRIgin e 100 MG Vital Signs Vital Name Observation Time Observation Value Comments S ource height 2024-03-30 09:30:00 63 [in_i] [facility] weight-kg 2024-03-30 09:30:00 70.85 kg [facility] bmi 2024-03-30 09:30:00 27.67 kg/m2 [facility] respiratory rate 2024-03-30 09:30:00 16 /min [facility] heart rate 2024-03-30 09:30:00 63 /min [facility] blood pressure systolic 2024-03-30 09:30:00 163 mm[Hg] [facility] blood pressure diastolic 2024-03-30 09:30:00 93 mm[Hg] [facility] height 2023-11-27 09:30:00 63 [in_i] [facility] weight-kg 2023-11-27 09:30:00 73.03 kg [facility] bmi 2023-11-27 09:30:00 28.52 kg/m2 [facility] heart rate 2023-11-27 09:30:00 58 /min [facility] blood pressure systolic 2023-11-27 09:30:00 198 mm[Hg] [facility] blood pressure diastolic 2023-11-27 09:30:00 101 mm[Hg] [facility] Body height 2023-08-20 16:03:00 152.4 cm [facility] Body weight 2023-08-20 16:03:00 72.576 kg [facility] BMI 2023-08-20 16:03:00 31.25 kg/m2 [facility] Systolic blood pressure 2023-08-01 12:56:00 108 mm[Hg] [facility] Diastolic blood pressure 2023-08-01 12:56:00 60 mm[Hg] [facility] Heart rate 2023-08-01 12:56:00 55 /min [facility] Body temperature 2023-08-01 12:56:00 36.72 Rebecca [facility] Respiratory rate 2023-08-01 12:56:00 18 /min [facility] Oxygen saturation in Arterial blood by Pulse oximetry 2023-08-01 12:56:00 96 /min [facility] hospital Body height 2023-07-31 11:40:00 157.5 cm [facility] Body weight 2023-07-31 11:40:00 71.7 kg [facility] BMI 2023-07-31 11:40:00 28.91 kg/m2 [facility] Systolic blood pressure 2023-07-31 12:15:00 148 mm[Hg] [facility] acute hospital Diastolic blood pressure 2023-07-31 12:15:00 60 mm[Hg] [facility] acute hospital Heart rate 2023-07-31 11:40:00 61 /min [facility] Body temperature 2023-07-31 11:40:00 36.44 Rebecca [facility] Respiratory rate 2023-07-31 11:40:00 18 /min [facility] Body height 2023-07-31 11:40:00 157.5 cm [facility] Body weight 2023-07-31 11:40:00 71.7 kg [facility] BMI 2023-07-31 11:40:00 28.91 kg/m2 [facility] Oxygen saturation in Arterial blood by Pulse oximetry 2023-07-31 11:40:00 97 /min [facility] Systolic blood pressure 2023-07-18 20:22:00 136 mm[Hg] [facility] hospital Diastolic blood pressure 2023-07-18 20:22:00 82 mm[Hg] [facility] acute hospital Heart rate 2023-07-18 20:22:00 62 /min [facility] Body height 2023-07-18 20:22:00 154.9 cm [facility] Body weight 2023-07-18 20:22:00 70.761 kg [facility] BMI 2023-07-18 20:22:00 29.48 kg/m2 [facility] Procedures Procedure Date / Time Performed Performing Clinician Source MR BRAIN W WO CONTRAST 2023-08-28 16:11:00 Sugar Clements [facility] XR CHEST 2 VW 2023-08-14 16:06:09 Eder Charles [facility] BASIC METABOLIC PANEL (NA, K, CL, CO2, GLUCOSE, BUN, CREATININE, CA) 2023-08-01 10:21:00 Andressa Mai [facility] CBC WITH DIFF 2023-08-01 10:21:00 Lilliana Mai [facility] BASIC METABOLIC PANEL (NA, K, CL, CO2, GLUCOSE, BUN, CREATININE, CA) 2023-08-01 10:21:00 Andressa Mai [facility] CBC WITH DIFF 2023-08-01 10:21:00 Lilliana Mai Shanice [facility] VAGAL NERVE STIMULATOR INSERTION 2023-07-31 13:46:00 Aleksandar [facility] VAGAL NERVE STIMULATOR INSERTION 2023-07-31 13:46:00 Aleksandar, [facility] VAGAL NERVE STIMULATOR INSERTION 2023-07-31 13:46:00 Aleksandar, [facility] VAGAL NERVE STIMULATOR INSERTION 2023-07-31 13:46:00 Aleksandar, [facility] VAGAL NERVE STIMULATOR INSERTION 2023-07-31 13:46:00 Aleksandar, [facility] VAGAL NERVE STIMULATOR INSERTION 2023-07-31 13:46:00 Aleksandar, [facility] ABORH CONFIRMATION (LAB ONLY) 2023-07-31 12:58:00 Aleksandar, [facility] ABORH CONFIRMATION (LAB ONLY) 2023-07-31 12:58:00 Aleksandar [facility] HB ABO GROUPING 2023-07-31 12:10:00 Braden Huertas [facility] HB ABO GROUPING 2023-07-31 12:10:00 Braden Huertas [facility] XR CHEST 1 VW 2023-07-25 15:20:00 Mike Clements [facility] REFERRAL- REQUEST/RESPONSE 2023-07-16 15:46:28 Doctor Unassigned, Mcbee [facility] XR KUB 2021-07-12 20:31:41 [facility] RIGHT 2021-07-12 20:31:41 Austen Miller [facility] ASSIGNMENT OF BENEFITS 2021-07-12 20:16:30 Docto r Unassigned, Mcbee [facility] Encounters Start Date/Time End Date/Time Encounter Type Admission Type Attending [facility] Care Facility Care Department Encounter ID Source 2024-03-31 08:35:01 Outpatient No, PCP [facility] [id number] [facility] 2023-11-27 09:06:01 Outpatient No, PCP [facility] [id number] [facility] 2024-04-06 00:00:00 2024-05-09 18:20:12 Patient Secure Msg Doctor Unassigned, Mcbee Doctor Unassigned, Mcbee [facility] [id number] [id number] [id number] [facility] 2024-04-28 00:00:00 2024-04-28 00:00:00 (BrainView ) BrainView [facility] [id number] [facility] 2024-04-20 00:00:00 2024-04-20 00:00:00 (TEL) [facility] [id number] [facility] 2024-04-01 00:00:00 2024-04-01 00:00:00 (TEL) [facility] [id number] [facility] 2024-03-30 00:00:00 2024-03-30 00:00:00 (TEL) [facility] [id number] [facility] 2024-03-30 00:00:00 2024-03-30 00:00:00 Office Visit- Est Pt.- Level 5 [facility] [id number] [facility] 2023-11-27 00:00:00 2023-11-27 00:00:00 Office Visit- Est Pt.- Level 4 [facility] [id number] [facility] 2023-10-29 11:00:00 2023-10-29 11:00:00 Outpatient BRADEN KEY PATRICK [facility] [id number] [facility] 2023-10-17 13:00:00 2023-10-17 13:00:00 Outpatient BRADEN KEY PATRICK [facility] [id number] [facility] 2023-08-28 09:04:28 2023-08-28 23:59:00 Outpatient R TYREE MIKE [facility] [id number] [facility] 2023-08-28 09:04:28 2023-08-28 23:59:00 Hospital Encounter Mike Clements Kelsi [facility] 1..114 [id number] 4.2.7.2.686 [id number] [facility] 2023-08-20 11:15:00 2023-08-20 12:45:50 Outpatient R BRADEN HUERTAS PATRICK [facility] [id number] [facility] 2023-08-20 11:15:00 2023-08-20 12:45:50 Office Visit Braden Huertas [facility] 1.114 350.1.13.10 4.2.7.2.686 [id number] [facility] 2023-08-14 10:37:36 2023-08-14 23:59:00 Outpatient R EDER CHARLES [facility] [id number] [facility] 2023-08-14 10:30:00 2023-08-14 23:59:00 Hospital Encounter Eder Charles [facility] 1..114 350.1.13.10 4.2.7.2.686 [id number] [facility] 2023-07-31 06:25:00 2023-08-01 11:22:00 Outpatient R ISMAEL CAROLINA [facility] [id number] [facility] 2023-07-31 06:25:00 2023-08-01 11:22:00 Hospital Encounter Braden Huertas Robin [facility] ([facility]) 1..114 350.1.13.10 4.2.7.2.686 [id number] [facility] 2023-07-31 08:38:00 2023-07-31 10:21:00 Surgery Aleksandar, [facility] ([facility]) [id number] 350.1.13.10 4.2.7.2.686 [id number] [facility] 2023-07-25 09:52:32 2023-07-25 23:59:00 Outpatient R TYREE MIKE [facility] [id number] [facility] 2023-07-25 09:52:32 2023-07-25 23:59:00 Hospital Encounter Tyree [facility] ([facility]) [id number] 350.1.13.10 4.2.7.2.686 [id number] [facility] 2023-07-25 11:00:00 2023-07-25 11:15:00 Systems Test Technician Visit Draw, [facility] Tyree [facility] [id number] 350.1.13.10 4.2.7.2.686 [id number] [facility] 2023-07-18 14:45:00 2023-07-18 16:14:50 [id number] 2023-07-18 14:45:00 2023-07-18 16:14:50 Office Visit Aleksandar [facility] [id number] 350.1.13.10 4.2.7.2.686 [id number] [facility] 2021-07-12 15:18:36 2021-07-12 23:59:00 Outpatient R RADIOLOGY [facility] [id number] [facility] 2021-07-12 15:15:00 2021-07-12 23:59:00 Hospital Encounter Radiology [facility] [id number] 350.1.13.10 4.2.7.2.686 [id number] [facility] 2021-07-12 00:00:00 2021-07-12 00:00:00 Orders Only Doctor Unassigned, Mcbee [facility] [id number] 350.1.13.10 4.2.7.2.686 [id number] [facility] Results Test Description Test Time Test Comments Results Result Comments Source MR BRAIN W WO CONTRAST 8 16:58:27 MR BRAIN W WO CONTRAST COMPARISON: None. HISTORY: epilepsy 3 Nadya only; epilepsy protocol; DTI with 64 directions TECHNIQUE: Multisequence multiplanar MR images of the brain obtainedwithout and with IV contrast.Quantitative volumetry of the brain was performed using NeuroQuant([employer], [place], [place]) software package. The NeuroQuantanalysis was based [...] T2 hyperintensity with peripheral T2 hypointense and [id number] signal with associated susceptibility signal loss in [...] were within 2 SD of the mean. [facility] XR CHEST 2 VW 2023-07-2 4 16:18:58 HISTORY: Evaluate position of VNS [...] the left anterior second and third ribs. [facility] Only[facility]2023-07-31 13:10:00* Test Item Value Reference Range Interpretation Comme nts ABO & RH (test code = 20) B [facility] Only[facility]2023-07-31 13:10:00* Test Item Value Reference Range Interpretation Comme nts ABO & RH (test code = 20) B [facility] Screen - ONCE [id number] 12:20:00* Test Item Value Reference Range Interpretation Comme nts ABO & RH (test code = 20) B POSITIVE IAT (test code = 1185) Negative [facility] - [facility] [id number] 12:20:00* Test Item Value Reference Range Interpretation Comme nts ABO & RH (test code = 20) B POSITIVE IAT (test code = 1185) Negative [facility] and Screen - ONCE [id number] 12:20:00* Test Item Value Reference Range Interpretation Comme nts ABO & RH (test code = 20) B POSITIVE IAT (test code = 1185) Negative [facility] 1 [id number] 18:25:24EXAM: XR CHEST 1 VW COMPARISON: None [...] projected over the left lower neck, nonspecific. Inspectionrecommended.[facility]- REQUEST/[id number] 15:46:28Ordered by an unspecified provider.[facility]/[id number] 15:46:28Ordered by an unspecified provider.[facility] Consult Notes Date/Time Note Provider Source [...] Left 07/31/2023 Surgeon: Braden Huertas MD; Location: [facility] OR LOCATION Prior Living Situation: in a house and with their daughter, 2 steps with no railing to enter DME: [employer] Prior level of Mobility: house hold ambulation Suspected ischemic or hemorraghic stroke:No Subjective: Pt has 24/ care from daughter. Pt is independent around the home. She has had frequent falls due to dizziness related to her medication. Pt enjoys sweeping and mopping. Patient/Family Goals: Go home Patient/Family verbalizes understanding of condition: Yes PAIN: denies pain before and after session COMMUNICATION Primary Language: French , pt able to understand/speak some Tajik, however daughter available to translate French when needed. Able to Verbalize needs: Yes [...] Minutes: 12 min Jacey Acevedo PT, DPT REHAB - Health History and Physical Notes Date/Time [...] Navarro MD Neurosurgery For inquiries please page [phone] Neurosurgery Clinic Note 07/18/2023 Chief Complaint: VNS depleted battery Referring Physician: Dr. Marti HPI: Tristan Stafford is a pleasant 62 year old woman, with history of refractory epilepsy s/p VNS placement approximately 10-15 years ago, no known revisions, referred to neurosurgery clinic for depleted VNS and discussion regarding surgical options for her epilepsy. She is followed by Dr. Hauesr and currently taking 3 AEDs and continues [...] signing the medical record. Braden Huertas MD Float Remover [facility] Department of Neurosurgery Associated attestation [...] She agrees to proceed. Braden Huertas MD [facility] Neurosurgery [facility] Notes Date/Time Note Provider Source 2023-08-01 11:00:00 Discharge education provided with discharge instruction explained and copy provided to the patient and her daughter. PIV to right hand removed, catheter tip intact, gauze applied and no bleeding noted. Patient left with her daughter along with her personal belongings. [facility] 2023-08-01 10:25:00 Occupational therapy reported that patient had an episode of absence seizure during the therapy. Patient is awake and alert upon assessment during this time. Respiration even and unlabored. [facility] 2023-08-01 07:49:29 Problem: Discharge Planning Goal: Adequate for discharge Outcome: Progressing as expected Goal: Effective communication Outcome: Progressing as expected Problem: Pain Goal: Control of pain at or below patient's documented comfort goal Outcome: Progressing as expected Goal: Reduction in pain sensation Outcome: Progressing as expected Problem: Falls, Risk of Goal: Absence of falls Outcome: Progressing as expected [facility] 2023-07-31 23:13:10 Problem: Discharge Planning Goal: Adequate for discharge Outcome: Progressing as expected Problem: Pain Goal: Control of pain at or below patient's documented comfort goal Outcome: Progressing as expected Problem: Falls, Risk of Goal: Absence of falls Outcome: Progressing as expected Deidre Barry RN [facility] 2023-07-31 17:50:00 Received patient from PACU. AOx4. Left neck incision and left upper chest incision with derma frausto, no bleeding noted. Daughter at bedside. Call light in reach.Respiration even and unlabored without SOB. [facility] 2023-07-31 09:55:00 Neurosurgery Service Operative Report Date: 07/31/2023 Pre-op Diagnosis: drug resistant epilepsy Post-op Diagnosis: drug resistant epilepsy Procedure: 1) revision (removal and re-implantation) of vagus nerve stimulator electrodes 25907 2) replacement left vagus nerve stimulator generator [id number] 3) generator interrogation and reprogramming [id number] 4) use of operating room microscope for microsurgical technique [id number] Wound Class: clean Attending Surgeon: Braden Huertas [...] PACU in stable condition. Braden Huertas MD Float Remover [facility] Department of Neurosurgery 07/31/[address] [facility] 2023-07-25 11:00:00 Images from the original note were not included. Venipuncture collection performed by clean technique on the left anticubitus. Total of 1 attempts were made. Slight pressure and a bandage/dressing were applied to the site(s). The patient experienced no complications. The following specimens were processed according to instructions and sent to [facility] laboratories per lab order on 07/25/2023: LT BLUE 1 SST 1 RED LAV 1 PPT DK GREEN (LiHep) DK GREEN (SodH) BUCKLEY DK BLUE (K2) DK BLUE (S) ACD Blood Culture NIPT/NTD T [facility]
[2024-12-14] MEDS ORDERED: clonazePAM 1 MG TAB ONE (11:00)
[2024-12-14 11:20] LABS: Absolute Lymphocytes (CBC) 1.6 K/uL (0.7-4.9); Hematocrit 38.3 % (36.0-45.0); Hemoglobin 12.9 g/dL (12.0-15.0); MCH 30.8 pg (27.0-35.0); MCHC 33.6 g/dL (32.0-36.0); MCV 91.5 fL (80-100); MPV 8.4 fL (7.6-11.3); Nucleated RBC Absolute Count 0.0 (0-0); Nucleated Red Blood Cells % 0.0 % (0-0); RBC Red Blood Cell Count 4.19 M/uL (3.86-4.86); White Blood Count 5.80 thou/uL (4.3-10.9)
--- NOTE | 2024-12-14 11:33 | RAD REPORT ---
EXAM: CT brain without contrast HISTORY: Seizure COMPARISON: August 2024 and 2019 TECHNIQUE: Multiple contiguous axial images were obtained and a CT of the brain without contrast.. Sagittal and coronal reconstruction performed. Automated exposure control, adjustment of the mA and/or kV according to patient size, and/or iterative reconstruction. Unless otherwise specified, incidental f indings do not require dedicated imaging follow-up FINDINGS: An intracranial bleed is not seen Ventricles are normal caliber No extra-axial fluid collection noted 8 mm calcification right basal ganglia unchanged small left occipital calcification unchanged. These may the sequela of prior cysticercosis infection or cavernous angiomas. Chronic opacification left maxillary sinus IMPRESSION: No acute intracranial abnormality noted. If the patient continues to have symptoms to suggest an acute intracranial abnormality then MRI of th e brain would be recommended.
[2024-12-14 11:41] LABS: ALT/SGPT 43.0 U/L (13-56); AST/SGOT 26.0 U/L (15-37); Albumin 3.1 g/dL (3.4-5.0); Albumin/Globulin Ratio 1.0 (1.1-1.8); Alkaline Phosphatase 138.0 U/L (45-117); Anion Gap 9.4 mEq/L (5.0-15.0); BUN Blood Urea Nitrogen 42.0 mg/dL (7-18); Globulin 3.1 g/dL (2.3-3.5); Glucose Level 94.0 mg/dL (74-106); Magnesium 2.3 mg/dL (1.6-2.4); Potassium 4.4 mEq/L (3.5-5.1)
[2024-12-14 12:02] LABS: Sqamous Epithelial <5 /HPF (None Seen); Urine Micro Reflex YN NO BILL MICROSCOPIC; Urine Yeast (Budding) Trace /HPF (None Seen)
--- NOTE | 2024-12-14 13:06 | ER ---
Nurse's Notes [facility] Name: Susan Rodriguez Age: 64 yrs Sex: Female : 1960 Arrival Date: 12/14/2024 Time: 10:10 Bed 17 Private MD: Diagnosis: Other seizures Presentation: 12/14 10:24 Chief complaint: Patient's son or daughter states: PT HAVING 1-2 SEIZURES A DAY dd2 BEGINNING ON SATURDAY AND INCREASING EACH DAY, REPORTS 10 SEIZURES TODAY. DAUGHTER REPORTS PT HAS FOCAL SEIZURES AND PT WAS TAKEN OFF CLONAZEPAM. Coronavirus screen: At this time, the client does not indicate any symptoms associated with coronavirus-19. Ebola Screen: No symptoms or risks identified at this time. Initial Sepsis Screen: Does the patient meet any 2 criteria? No. Patient's initial sepsis screen is negative. Does the patient have a suspected source of infection? No. Patient's initial sepsis screen is negative. Risk Assessment: Do you want to hurt yourself or someone else? Patient reports no desire to harm self or others. Onset of symptoms was December 10, 2024. 10:24 Method Of Arrival: Ambulatory dd2 10:24 Acuity: MARIO 3 dd2 Triage Assessment: 10:27 General: Appears in no apparent distress. Behavior is cooperative, appropriate for age, dd2 anxious. Pain: Denies pain. Neuro: Level of Consciousness is awake, alert, obeys commands, Oriented to person, time, situation, Appropriate for age Reports SEIZURES. Seizure activity reported prior to arrival. Type of seizure: focal seizure. Historical: - Allergies: 10:27 PENICILLINS; dd2 - PMHx: 10:27 Alzheimer's disease; Anxiety; depressive disorder; Hyperlipidemia; Hypertensive dd2 disorder; Hypothyroidism; Randomly passes out; Seizure; - PSHx: 10:27 Total abdominal hysterectomy; dd2 - Immunization history:: Adult Immunizations unknown. - Infectious Disease History:: Denies. - Social history:: Smoking status: Patient denies any tobacco usage or history of. Screenin:36 [facility] ED Fall Risk Assessment (Adult) History of falling in the last 3 months, bp including since admission No falls in past 3 months (0 pts) Confusion or Disorientation No (0 pts) Intoxicated or Sedated No (0 pts) Impaired Gait No (0 pts) Mobility Assist Device Used No (0 pt) Altered Elimination No (0 pt) Score/Fall Risk Level 0 - 2 = Low Risk Oriented to surroundings. Abuse screen: Denies threats or abuse. Denies injuries from another. Nutritional screening: No deficits noted. Tuberculosis screening: No symptoms or risk factors identified. Assessment: 11:36 Reassessment: Patient appears in no apparent distress at this time. Patient is alert, bp oriented x 3, equal unlabored respirations, skin warm/dry/pink. Vital Signs: 10:24 BP 159 / 95; Pulse 77; Resp 16; Temp 98.2; Pulse Ox 99% on R/A; Pain 0/10; dd2 11:36 BP 167 / 75; Pulse 73; Resp 16; Pulse Ox 100% ; bp 13:09 BP 134 / 85; Pulse 72; Resp 15; Pulse Ox 97% ; bp 10:24 Pain Scale: Adult dd2 [place] Coma Score: 10:27 Eye Response: spontaneous(4). Motor Response: obeys commands(6). Verbal Response: dd2 oriented(5). Total: 15. ED Course: 10:14 Patient arrived in ED. im 10:20 Debra Kennedy DO is Attending Physician. co1 10:27 Triage completed. dd2 10:27 Arm band placed on left wrist. dd2 10:50 Carlos Calderón, CHRISTI is Primary Nurse. bp 10:55 CT Head Brain wo Cont In Process Unspecified. EDMS 11:10 Inserted saline lock: 22 gauge in right forearm, using aseptic technique. Blood bp collected. Flushed with 10 mL NS. 11:36 Patient has correct armband on for positive identification. bp 13:33 No provider procedures requiring assistance completed. IV discontinued, intact, bp bleeding controlled, No redness/swelling at site. Pressure dressing applied. Administered Medications: 11:10 Drug: clonazePAM PO 1 mg PO once Route: PO; bp 13:33 Follow up: Response: No adverse reaction bp Medication: 11:36 VIS not applicable for this client. bp Outcome: 13:06 Discharge ordered by . co1 13:33 Discharged to home ambulatory, with family, bp 13:33 Condition: stable 13:33 Discharge instructions given to patient, family, Instructed on discharge instructions, follow up and referral plans. Demonstrated understanding of instructions, follow-up care, 13:33 Patient left the ED. bp Signatures: Dispatcher [employer] Carlos Ramon RN RN bp Skylar Crow DIANA, RN RN dd2 Debra Kennedy DO DO co1
--- NOTE | 2024-12-14 13:07 | EDPHYS ---
Physician Documentation [facility] Name: Susan Rodriguez Age: 64 yrs Sex: Female : 1960 Arrival Date: 12/14/2024 Time: 10:10 Bed 17 Private MD: ED Physician Debra Kennedy HPI: 12/14 10:36 This 64 yrs old Female presents to ER via Ambulatory with complaints of co1 Seizure. 10:36 The patient presents with a history of multiple seizures. The patient is a 75 year old co1 female with PMH Epilepsy, Alzheimer's Dementia, Hypertension presenting to the ED for evaluation of multiple seizures. History was reported by the patient's daughter who is at bedside. Patient's daughter reports that the patient started having recurrent seizures on (four days ago). She reports the patient had one or two seizures on and Saturday. The patient did not have any seizures on Saturday and then yesterday, the patient had more than five seizures. She also reports that the patient has had multiple seizures today. The seizures are characterized as focal and daughter reports the patient makes noises during the seizures and becomes confused and stares off into space. She reports the patient take Zonisamide 300 mg daily, Lamotrigine 150 mg twice daily and Primidone 50 mg once daily and she has been compliant on her medications. She reports the patient was previously taking Clonazepam 1 mg daily but this medication was discontinued in July by her neurologist because her neurologist felt that it was affecting her Dementia. . 10:36 Unable to obtain HPI due to baseline dementia. On direct questioning, the patient is co1 alert and oriented to self only. The patient states she knows when she is about to have a seizure. Daughter denies recent fever, abdominal pain, vomiting, diarrhea or any infectious symptoms. . Historical: - Allergies: 10:27 PENICILLINS; dd2 - PMHx: 10:27 Alzheimer's disease; Anxiety; depressive disorder; Hyperlipidemia; Hypertensive dd2 disorder; Hypothyroidism; Randomly passes out; Seizure; - PSHx: 10:27 Total abdominal hysterectomy; dd2 - Immunization history:: Adult Immunizations unknown. - Infectious Disease History:: Denies. - Social history:: Smoking status: Patient denies any tobacco usage or history of. ROS: 10:36 Constitutional: Negative for fever. Cardiovascular: Negative for chest pain. co1 Respiratory: Negative for shortness of breath, cough. Abdomen/GI: Negative for abdominal pain, nausea, vomiting, diarrhea, and constipation, Neuro: Negative for headache, weakness. Positive for seizures. Exam: 10:36 Constitutional: This is a well developed, well nourished patient who is awake, alert, co1 and in no acute distress. Head/Face: Normocephalic, atraumatic. Eyes: Conjunctiva and sclera are non-icteric and not injected. Abdomen/GI: Soft. Non tender. Non distended. Skin: Warm, dry with normal turgor. Normal color. Neuro: Awake and alert. Oriented to self only. Moves all four extremities. Follows commands. No obvious focal neurological deficits. Vital Signs: 10:24 BP 159 / 95; Pulse 77; Resp 16; Temp 98.2; Pulse Ox 99% on R/A; Pain 0/10; dd2 11:36 BP 167 / 75; Pulse 73; Resp 16; Pulse Ox 100% ; bp 13:09 BP 134 / 85; Pulse 72; Resp 15; Pulse Ox 97% ; bp 10:24 Pain Scale: Adult dd2 [place] Coma Score: 10:27 Eye Response: spontaneous(4). Motor Response: obeys commands(6). Verbal Response: dd2 oriented(5). Total: 15. MDM: 10:23 Medical Screening Exam initiated co1 10:36 Data reviewed:. co1 11:37 Differential diagnosis: cardiac arrhythmia, seizure, TIA, Breakthrough seizure, co1 Electrolyte abnormality, Urinary tract infection, Medication non compliance, Intracranial mass or space occupying lesion. Data reviewed: vital signs, nurses notes, lab test result(s), CBC, electrolytes, urinalysis, EKG, radiologic studies, CT scan. I considered the following discharge prescriptions or medication management in the emergency department Medications were administered in the Emergency Department. See MAR Clonazepam 1 mg. Independent interpretation of the following test(s) in the Emergency Department EKG: See my EKG interpretation above. Historians other than the Patient: Daughter/Son: Patient's daughter provided history due to patient's Dementia and altered mental status. Care significantly affected by the following chronic conditions: Hypertension, Epilepsy, Alzheimer's Dementia. 13:08 ED course: 64 year old female with PMH Seizure, Alzheimer's Dementia, Hypertension co1 presenting to the ED with recurrent seizures since . Patient presented with her daughter who provides history. On initial presentation to the ED, patient was afebrile and hemodynamically stable. Labs and CT brain were ordered. Labs were unchanged from her baseline. CT brain shows no acute intracranial abnormality. NO significant electrolyte abnormalities. Discussed with patient's daughter admission for continuous EEG and neurology consultation however patient would need to be transferred to [facility] or [facility] for cEEG. Daughter does not want patient to be admitted and prefers to follow up outpatient with the patient's neurologist for EEG. Patient's neurologist is aware patient was seen in the ED and sent a prescription for Nayzilam nasal spray for patient to use when she has a seizure. Patient herself also does not want to be admitted and wants to be discharged home with outpatient follow up with her neurologist. I counseled patient's daughter to contact her neurologist today to schedule a follow up appointment as soon as possible but ideally within 48 hours to have the patient reassessed and determine the next plan of action including medication adjustment. Daughter is agreeable with this plan. Patient is also agreeable. She was discharged in stable condition.. 12/14 10:34 Order name: CBC with Diff; Complete Time: 11:22 co1 12/14 11:22 Interpretation: Within normal limits: MCH 30.8; WBC 5.80; HGB 12.9; PLT 199. co1 12/14 10:34 Order name: CMP; Complete Time: 11:44 co1 12/14 11:46 Interpretation: Abnormal: CRE 1.37; BUN 42; GFR 43. co1 12/14 10:34 Order name: UA W/ Microscopic; Complete Time: 13:04 co1 12/14 13:04 Interpretation: UWBC <5. co1 12/14 10:34 Order name: Magnesium; Complete Time: 11:44 co1 Interpretation: Within normal limits. 12/14 10:46 Order name: TSH; Complete Time: 11:48 co1 12/14 10:34 Order name: CT Head Brain wo Cont; Complete Time: 11:34 co1 12/14 11:34 Interpretation: No acute disease. co1 Administered Medications: 11:10 Drug: clonazePAM PO 1 mg PO once Route: PO; bp 13:33 Follow up: Response: No adverse reaction bp Disposition Summary: 12/14/24 13:06 Discharge Ordered Notes: Location: Home co1 Condition: Stable co1 Diagnosis - Other seizures co1 Followup: co1 - With: Private Physician - When: 48 Hours - Reason: Recheck today's complaints Discharge Instructions: - Discharge Summary Sheet co1 - Epilepsy co1 - Seizure, Adult co1 - Epilepsy, [id number]-ar-Jknm co1 Forms: - Medication Reconciliation Form co1 - Antibiotic Education co1 - Prescription Opioid Use co1 - Patient Portal Instructions co1 - Leadership Thank You Letter co1 Signatures: Dispatcher [employer] EDMS Ranjan Grewal, [employer]-C [employer]-Cla1 Carlos Calderón RN RN bp ERWIN ALSTON RN RN dd2 Debra Kennedy, DO co1 Corrections: (The following items were deleted from the chart) 10:32 10:32 Head Brain Wo Cont+CT.RAD.BRZ ordered. EDMS EDMS 10:34 10:34 CBC+H.LAB.BRZ ordered. EDMS EDMS 10:34 10:34 COMPREHENSIVE METABOLIC PANEL+C.LAB.BRZ ordered. EDMS EDMS 10:34 10:34 UA W/ Microscopic+U.LAB.BRZ ordered. EDMS EDMS 10:34 10:34 MAGNESIUM+C.LAB.BRZ ordered. EDMS EDMS 10:34 10:34 Head Brain Wo Cont+CT.RAD.BRZ ordered. EDMS EDMS 10:36 10:35 CBC+H.LAB.BRZ ordered. EDMS EDMS 10:36 10:35 COMPREHENSIVE METABOLIC PANEL+C.LAB.BRZ ordered. EDMS EDMS 10:36 10:35 MAGNESIUM+C.LAB.BRZ ordered. EDMS EDMS 10:36 10:35 UA W/ Microscopic+U.LAB.BRZ ordered. EDMS EDMS 11:22 11:22 Within normal limits: MCH 30.8. co1 co1 11:47 11:46 Abnormal: CRE 1.37; BUN 42; GFR 43. co1 co1 11:47 11:46 Within normal limits. co1 co1
[2024-12-14 16:49] VITALS: TEMP 98.2
[2024-12-14 17:03] VITALS: BP 134/85; O2SAT 97
== END 2024-12-14 13:33 | disposition home or self-care (01) ==
LOC: ER 10:10
DX: G40.89 Other seizures (principal); G30.9 Alzheimer's disease, unspecified; F02.80 Dementia in other diseases classified elsewhere, unspecified severity, without behavioral disturbance, psychotic disturbance, mood disturbance, and anxiety
CPT/HCPCS: 36415; 70450; 80053; 81001; 83735; 84443; 85025; 93005